=== PATIENT | male | born 1940 | race Caucasian/White ===

== ENCOUNTER 2024-01-20 15:22 | Inpatient (IN) | payer OTHER, SELFPAY ==
[2024-01-20] VITALS (13 sets, daily range): BP systolic 80–139; BP diastolic 51–75; BMI 25.9; BMI 25.7
--- NOTE | 2024-01-20 09:12 | ED.GENMED ---
History of Present Illness
General
Chief Complaint: Breathing Problem
Source: patient
Exam Limitations: none
Time Seen by Provider: 01/20/24 08:36
Nursing documentation reviewed up to this point in time: agreed with
Travel History
Have you had any contact with someone who has COVID-19?: No
Do you have any symptoms of coronavirus? Fever > 100 degrees, chills, cough, shortness of breath, sore throat, loss of taste or smell, muscle aches, or headache?: No
History of Present Illness
History of Present Illness:
83-year-old male history of asthma followed by pulmonary on some inhalers, presents with cough congestion possibly chills, worse at night, has had some ankle edema which is new for him no hemoptysis, pressure in his chest when he is coughing,
Past History
Past History
ED Past Medical History: Asthma, HTN, Hypercholesterolemia and Renal failure (Recent elevation of creatinine, most recently .28 October 2016.); Negative CAD
ED Past Surgical History: Other (Hernia repair); Negative Cardiac
Social History
Tobacco: Non-smoker
Alcohol: None
Drug: None
Personal:
Living: with family
Employment: Employed
Family History
Family History: Other (Noncontributory)
Review of Systems
Review of Systems
All Other Systems: Not applicable
Constitutional: Reports chills; Denies fever
Respiratory: Reports cough and trouble breathing
Cardiac: Reports chest pain
ABD/GI: Reports no symptoms
: Reports no symptoms
Musculoskeletal: Reports edema
Neurological: Reports no symptoms
Endocrine: Reports no symptoms
Hematologic/Lymphatic: Reports no symptoms
Phy Exam
Physical Exam
Physical Exam:
Physical Exam
General: Elderly male looks dyspneic nontoxic
Neck: No jaundice
Heart: Regular
Lungs: Diminished bilaterally with faint crackle
Abdomen: Not
Neuro: alert and oriented. no focal neurological deficits
Skin: no rash
Psychiatric: well kept. interactive and cooperative
Extremities: 1+ edema
Scores
Heart Failure Risk
Heart Failure Risk Score: Not Applicable
Course
Orders/Labs/Results
Orders:
Orders
01/20/24 08:09
Electrocardiogram (*1) Urgent
Reason for Study: Shortness of Breath
01/20/24 08:10
EKG- Treatment ONCE
01/20/24 08:36
Electrocardiogram (*1) Stat
Reason for Study: Other
Other Reason for Exam: chest pain
Cardiac Monitoring- Treatment ONCE
EKG- Treatment ONCE
CR Chest - 2 Views Urgent
Comment:
Reason For Exam: soob
01/20/24 09:10
Complete Blood Count/With Diff Urgent
NT-proBNP Urgent
TSH Urgent
Troponin I Urgent
01/20/24 09:12
Ipratropium/Albuterol Sulfate [Duoneb] 3 ml INH R NOW STA
01/20/24 09:37
CefTRIAXone [Rocephin] 1,000 mg IV NOW STA
01/20/24 09:40
Comprehensive Metabolic Panel Routine
Magnesium Routine
01/20/24 09:45
Blood Culture Q30M
[facility] Source: Blood/Venous
Specimen Description:
01/20/24 10:15
Blood Culture Q30M
[facility] Source: Blood/Venous
Specimen Description:
Abnormal Lab Results
01/20/24
09:10
WBC 14.7 H 10^3/uL
(4.8-10.8)
RBC 4.49 L 10^6/uL
(4.70-6.10)
Plt Count 423 H 10^3/uL
(130-400)
01/20/24 09:10
Vital Signs
Initial and Last Documented VS:
Initial Vital Signs
Temp Pulse Resp BP Pulse Ox
97.6 F 97 26 126/60 93
01/20/24 08:05 01/20/24 08:05 01/20/24 08:05 01/20/24 08:05 01/20/24 08:05
Last Documented Vital Signs
Temp Pulse Resp BP Pulse Ox
97.6 F 87 18 117/51 92
01/20/24 08:05 01/20/24 09:10 01/20/24 09:10 01/20/24 09:10 01/20/24 09:10
MDM/Problems Addressed
Differential Diagnosis Includes:
Bronchitis asthma heart failure pneumonia doubt PE
MDM/Problems Addressed:
Shortness of breath
Chronic conditions affecting care: Asthma
Acute Exacerbation and/or Progression of Chronic Illness: Asthma
*Radiology
Radiology exam reviewed: preliminary read by ED provider (Large pneumonia formal report pending)
*Pulse Oximetry
Patient hypoxic: no
*EKG
Interpreted by ED Provider?: Yes
Interpretation: abnormal
Comparison EKG: no comparison EKG present
Heart Rate: 78
Rate: normal
Rhythm: sinus
Ischemia: non-specific ST changes
*Sales Professional Bilingual Interpretation
Rate: normal
Interpretation: normal
Heart Rate: 78
Rhythm: sinus
*Critical Care Note
Total Time (30-74mins, 75-104mins- exclusive of procedures): Not Applicable
Update Note
Update Note:
Chest x-ray noted formal report pending check blood cultures
Patient is room her pulse ox 90 to 91%, placed on oxygen will require admission message sent to hospitalist patient and nursing updated
ED Attending Note
-
Portions of this chart may have been created with voice recognition software.� Occasional wrong word or��sound alike� substitutions may have occurred due to the inherent limitations of voice recognition software.
Discharge Plan
Departure
Patient Disposition: Admit
Date of Disposition: 01/20/24
Time of Disposition: 09:47
Admit to: Med/Surg
Presentation/result/management discussed w/ accepting MD/DO: Hospitalist
Patient with high blood pressure during this ER visit?: No
Condition: Fair
Covid-19: Not Applicable
Discharge Problem:
Acute hypoxic respiratory failure
Prescriptions:
No Action
losartan 50 mg Tablet
50 mg PO DAILY
latanoprost 0.005 % Drops
1 drp BOTH EYES HS
atorvastatin 20 mg Tablet
20 mg PO DAILY
Theragen Tablet
1 tab PO DAILY
brimonidine 0.2 % Drops
1 drp BOTH EYES BID
montelukast 10 mg Tablet
10 mg PO DAILY
azelastine 137 mcg (0.1 %) Aerosol,[place]
1 spray INTRANASAL BID
cholecalciferol (vitamin D3) 25 mcg (1,000 unit) Tablet
25 mcg PO DAILY
Referrals:
Giacomo Costello PA-C [Family Provider] -
Interventions
Interventions:
*Risk Screen - Suicide Last Done: 01/20/24 09:10
*General Assessment Last Done: 01/20/24 08:10
*Neglect/Abuse Screening Last Done: 01/20/24 09:10
ED- Fall Risk Assessment Last Done: 01/20/24 09:10
*ED COVID-19 Vaccine History Last Done: 01/20/24 09:10
ED- Cardiac Assessment Last Done: 01/20/24 09:10
ED- Pulmonary Assessment Last Done: 01/20/24 09:10
Discharge Date and Time
Print Language: HEBREW
[2024-01-20 09:21] LABS: % Basophils 0.8 % (0-2); % Eosinophils 0.1 % (0-6); % Immature Granulocytes 1.2 % (0-0.5); % Lymphocytes 6.3 % (20.5-51.1); % Monocytes 9.7 % (1.7-9.3); % Neutrophils 81.9 % (42.2-75.2); Absolute Basophils 0.1 10^3/uL (0-0.2); Absolute Immature Granulocytes 0.2 10^3/uL (0-0.05); Absolute Lymphocytes 0.9 10^3/uL (1.2-3.4); Absolute Monocytes 1.4 10^3/uL (0.1-0.6); Hematocrit 39.9 % (39.0-52.0); Hemoglobin 13.8 g/dL (13.0-18.0); Mean Corp Hgb Conc. 34.6 g/dL (33.0-37.0); Mean Corpuscular Hgb 30.7 pg (27.0-31.0); Mean Corpuscular Volume 88.9 fL (80.0-94.0); Mean Platelet Volume 8.6 fL (7.4-10.4); Nucleated Red Blood Cells % 0 % (-); Platelet Count 423 10^3/uL (130-400); Red Blood Cell Count 4.49 10^6/uL (4.70-6.10); Red Cell Dist. Width 13.7 % (11.5-14.5); White Blood Cell Count 14.7 10^3/uL (4.8-10.8)
--- NOTE | 2024-01-20 10:00 | HPS.HSE ---
Family Physician
-
Family Physician: Giacomo Costello PA-C
Chief Complaint
-
Shortness of Breath
History of Present Illness
83M cough variant asthma HTN HLD p/w 2 weeks progressive shortness of breath weakness associate intermittent subjective Fever chills night sweats. Reports productive cough yellow sputum. Denies hemoptysis, sick contacts, nausea, vomiting,
diarrhea, constipation. Reports loss of appetite, significant exercise intolerance due to weakness/sob, having difficulty ambulating short distances. Patient also reports new ankle edema. ED eval was notable for hypoxia requiring 4L to maintain
saturation 94%, reportedly 90-91% on room air. VSS otherwise stable afebrile. White count 14 low protein 5.9 and low albumin 2.2. CXR noted small to moderate left pleural w/ adjacent atelectasis/consolidation opacity posterior left midlung
suggestive PNA.
Medical History
Past Medical History
Past Medical History: Reports Other (as above)
Past Surgical History: Reports Other (Hernia Repair)
Social History
Tobacco: Non-smoker
Alcohol: None
Drug: None
Personal:
Living: With Family
Family History
Family History: Not pertinent (reviewed)
Allergies / Home Medications
Allergies reflects when Allergies were last updated in [facility].
Home Medications with original date entered in [facility]
Allergy/Medication List:
Allergies
Allergy/AdvReac Type Severity Reaction Status Date / Time
No Known Allergies Allergy Verified 01/20/24 08:05
Home Medications
atorvastatin 20 mg tablet 20 mg PO DAILY High Cholesterol 01/20/24
azelastine 137 mcg (0.1 %) nasal spray aerosol 1 spray intranasal BID Congestion 01/20/24
brimonidine 0.2 % eye drops 1 drp BOTH EYES BID Eye Condition 01/20/24
cholecalciferol (vitamin D3) 25 mcg (1,000 unit) tablet 25 mcg PO DAILY Supplement 01/20/24
latanoprost 0.005 % eye drops 1 drp BOTH EYES HS Eye Condition 01/20/24
losartan 50 mg tablet 50 mg PO DAILY Blood Pressure 01/20/24
montelukast 10 mg tablet 10 mg PO DAILY asthma 01/20/24
therapeutic multivitamin 1 tab PO DAILY Supplement 01/20/24
Review of Systems
-
A 12 point ROS was completed and negative except as noted: Yes
Constitutional: Reports Other (as below)
Physical Exam
Vital Signs
Vital Signs
Temp Pulse Resp BP Pulse Ox
97.6 F 87 18 117/51 92
01/20/24 08:05 01/20/24 09:10 01/20/24 09:10 01/20/24 09:10 01/20/24 09:10
Physical Exam
General: Other (as below)
Laboratory Results
-
01/20/24 09:10
Laboratory Results
Total Bilirubin Cancelled 01/20/24 09:10
AST Cancelled 01/20/24 09:10
ALT Cancelled 01/20/24 09:10
Alkaline Phosphatase Cancelled 01/20/24 09:10
Impression/Plan
-
ROS
General: reports fever chills night sweats
Neuro: Denies seizure shaking loss of consciousness dizziness vertigo
Psych: denies depression hallucinations confusion manic episodes
Endocrine: Denies polyuria polydipsia polyphagia heat intolerance
HEENT: Denies blindness visual disturbances epistaxis
Pulmonary: reports coughing productive yellow sputum sob
Cardiovascular: denies chest pain palpitations reports ankle edema
Hematology: denies signs symptoms of anemia easy bruising/bleeding
Gastrointestinal: denies nausea vomiting diarrhea constipation hematemesis hematochezia melena Reports loss of appetits
Genito-Urinary: denies retention incontinence dysuria
Musculoskeletal: denies joint pain weakness
Dermatology: denies rash laceration bruising
Physical Exam
General: No pallor, cyanosis, or jaundice.
HEENT: Throat clear. PERRLA Normocephalic atraumatic
NECK: Supple. No JVD Carotid Bruits
RESPIRATORY: Lungs clear to auscultation. No crackles wheezes stridor
CVS: S1, S2 normal. RRR. No murmur, rub or gallop.
ABDOMEN: Soft, non-tender. No distension. BS+/normal.
EXTREMITIES: No peripheral cyanosis or edema.
CORNICE MAKER: AOx3. No focal deficits.
IMPRESSION:
83M cough variant asthma HTN HLD p/w 2 weeks progressive shortness of breath weakness associate intermittent subjective Fever chills night sweats. Admitted for further evaluation PNA asthma exacerbation Acute hypoxic insufficiency/failure requiring
4L small to moderate left pleural effusion. Noted new onset ankle edema BNP however neg for HF, suspect d/t malnutrition with low protein and albumin noted, patient reports poor oral intake due to loss of appetite progressive over the past few
days/week.
PLAN:
#PNA
#Left Lung small to moderate Pleural Effusion
#Asthma Exacerbation
#Acute hypoxic insufficiency/failure requiring 4L
#Generalized weakness
Tele Admit
ceftriaxone azithromycin
trend wbc monitor Temp
follow blood culture results
sputum culture
Legionella Strep pna urinary antigens
COVID Flu neg
IR eval for thoracentesis
O2 supplementation prn
Steroids Bronchodilators
Fall Precautions
PT/OT
#HTN
cont home losartan with holding parameters
#Cont home statin
dvt ppx lovenox
gi ppx famotidine
meds reconciled and resumed as appropriate
Full Code as per pt
I spent a total of 80 minutes with the patient or on the floor. More than 50% of this time involved counseling and coordination of care.
[2024-01-20] MEDS: DUONEB 3 ML INH ×2 (10:09→19:43)
[2024-01-20] MEDS: DECADRON 10 MG IV (10:09)
[2024-01-20 10:14] LABS: NT-proBNP 525 pg/ml; Troponin I < 0.012 ng/ml
[2024-01-20] MEDS: ROCEPHIN 1000 MG IV (10:16)
[2024-01-20 10:33] LABS: TSH 3.98 uIU/ml (0.47-4.68)
[2024-01-20 10:37] LABS: ALT (SGPT) 26 U/L (0-50); AST (SGOT) 31 U/L (17-59); Albumin 2.2 g/dl (3.5-5.0); Alkaline Phosphatase 143 U/L (38-126); Blood Urea Nitrogen 38 mg/dl (9-20); Calcium 7.7 mg/dl (8.4-10.2); Carbon Dioxide 23 mmol/L (22-30); Chloride 104 mmol/L (98-107); Estimated Creatinine Clearance 46 ml/min; Glucose 114 mg/dl (70-99); Magnesium 2.3 mg/dl (1.6-2.3); Potassium 3.3 mmol/L (3.5-5.1); Sodium 136 mmol/L (135-145); Total Bilirubin 1.1 mg/dl (0.2-1.3); Total Protein 5.9 g/dl (6.3-8.2); eGFR > 60.00
[2024-01-20] MEDS: NSS 1000 IV (11:48)
[2024-01-20] MEDS: KCL 40 MEQ PO (11:55)
--- NOTE | 2024-01-20 13:31 | EDRN ---
Pt administered a boxed lunch and cup of orange juice pt is feeling very much better at this time.
--- NOTE | 2024-01-20 14:03 | EDRN ---
Dr. Pearson in to see pt at this time.
[2024-01-20 14:41] LABS: COVID-19 Antigen Negative (Negative)
--- NOTE | 2024-01-20 16:12 | PTCARENOTE ---
Bilateral lung US completed by Dr. Constantino. Pleural fluid not amenable for thoracentesis. Procedure canceled. Report given to 3W nurse. Patient transport to take to room 336-1
[2024-01-20] MEDS: DUONEB INH (17:07)
[2024-01-20] MEDS: ZITHROMAX INFUSION 250 IV (17:33)
[2024-01-20] MEDS: DECADRON 4 MG IV (17:34)
[2024-01-20] MEDS: LOVENOX 40 MG SC (17:34)
[2024-01-20] MEDS: ALPHAGAN 0.2% EYE DROPS 1 DROP BOTH EYES (20:25)
[2024-01-20] MEDS: XALATAN OPHTHALMIC SOLUTION 1 DROP BOTH EYES (22:08)
[2024-01-20] MEDS: PEPCID 20 MG PO (22:08)
[2024-01-21] VITALS (7 sets, daily range): BP systolic 113–140; BP diastolic 69–82; PULSE 95; O2SAT 96
[2024-01-21] MEDS: TYLENOL 650 MG PO ×4 (00:15→21:38)
[2024-01-21] MEDS: DECADRON 4 MG IV ×3 (01:27→21:36)
--- NOTE | 2024-01-21 06:38 | W.PN.HOSP.TC ---
Today's Communication/Plan
-
steroid taper
bronchodilators
antitussives
wean O2 supplementation as tolerated
cont abx
Pulm eval
Assessment / Plan
Assessment / Plan
Physical Exam
General: No pallor, cyanosis, or jaundice.
HEENT: Throat clear. PERRLA Normocephalic atraumatic
NECK: Supple. No JVD Carotid Bruits
RESPIRATORY: Lungs clear to auscultation. No crackles wheezes stridor
CVS: S1, S2 normal. RRR. No murmur, rub or gallop.
ABDOMEN: Soft, non-tender. No distension. BS+/normal.
EXTREMITIES: No peripheral cyanosis or edema.
DEBT COLLECTION SPECIALIST: AOx3. No focal deficits.
IMPRESSION:
83M cough variant asthma HTN HLD p/w 2 weeks progressive shortness of breath weakness associate intermittent subjective Fever chills night sweats. Admitted for further evaluation PNA asthma exacerbation Acute hypoxic insufficiency/failure requiring
4L small to moderate left pleural effusion. Noted new onset ankle edema BNP however neg for HF, suspect d/t malnutrition with low protein and albumin noted, patient reports poor oral intake due to loss of appetite progressive over the past few
days/week.
PLAN:
#PNA
#Left Lung small to moderate Pleural Effusion
#Asthma Exacerbation
#Acute hypoxic insufficiency/failure requiring 4L
#Generalized weakness
Tele Admit
ceftriaxone azithromycin
trend wbc monitor Temp
follow blood sputum culture results
Legionella Strep pna urinary antigens
COVID Flu neg
IR attempted thoracentesis however procedure aborted as US noted complex hypoechoic lesion recommended CT for further evaluation.
CT appreciated noted loculated with associate consolidation/atelectasis, possible small mass not excluded
Pulm eval requested
wean oxygen supplementation as tolerated
antitussives Steroid taper Bronchodilators
Fall Precautions
PT/OT appreciated home health vs no needs
#HTN
cont home losartan with holding parameters
#Cont home statin
dvt ppx lovenox
gi ppx famotidine
Full Code
I spent a total of 58 minutes with the patient or on the floor. More than 50% of this time involved counseling and coordination of care.
Anticipated Discharge: 24 - 48 hours
Subjective/Interval History
-
Date of Service: January 21, 2024
reports feeling better. Remains dependant on nasal cannula supplementation. reports significant coughing.
Objective Data
-
Labs:
Laboratory Results
01/21/24
06:15
Sodium Pending
Potassium Pending
Chloride Pending
Carbon Dioxide Pending
BUN Pending
Creatinine Pending
Glucose Pending
Calcium Pending
Vital Signs:
Vital Signs
Temp Pulse Resp BP Pulse Ox
97.4 F 71 16 124/74 95
01/21/24 03:10 01/21/24 03:10 01/21/24 03:10 01/21/24 03:10 01/21/24 03:10
I&O
01/19/24 01/20/24 01/21/24
06:59 06:59 06:59
Intake Total 480 / 480
Balance 480 / 480
[2024-01-21 06:58] LABS: Blood Urea Nitrogen 39 mg/dl (9-20); Calcium 8.2 mg/dl (8.4-10.2); Carbon Dioxide 21 mmol/L (22-30); Chloride 106 mmol/L (98-107); Estimated Creatinine Clearance 52 ml/min; Glucose 193 mg/dl (70-99); Magnesium 2.5 mg/dl (1.6-2.3); Potassium 3.9 mmol/L (3.5-5.1); Sodium 138 mmol/L (135-145); eGFR > 60.00
[2024-01-21] MEDS: DUONEB 3 ML INH ×4 (07:31→18:37)
[2024-01-21] MEDS: SINGULAIR 10 MG PO (08:49)
[2024-01-21] MEDS: ZITHROMAX 250 MG PO (08:49)
[2024-01-21] MEDS: COZAAR 50 MG PO (08:49)
[2024-01-21] MEDS: THERAGRAN 1 TABLET PO (08:49)
[2024-01-21] MEDS: VITAMIN D3 (cholecalciferol) 25 MCG PO (08:49)
[2024-01-21] MEDS: LIPITOR 20 MG PO (08:49)
[2024-01-21] MEDS: ALPHAGAN 0.2% EYE DROPS 1 DROP BOTH EYES ×2 (08:50→21:35)
[2024-01-21] MEDS: STERILE WATER FOR INJECTION 10 ML IV (10:12)
[2024-01-21] MEDS: ROCEPHIN 1000 MG IV (10:17)
--- NOTE | 2024-01-21 11:22 | CM ---
CM reviewed medical records. CM met with patient in room. Patient confirmed demographics. Patient lives independently with . Patient denies history of VN or SNF. No DME in the home. Patient is active with his PCP and Pulmonary physician.
Patient uses [facility] in [place].
PLAN: Home vs Home with oxygen
[2024-01-21] MEDS: LOVENOX 40 MG SC (17:37)
--- NOTE | 2024-01-21 18:06 | CON.PUL ---
Addendum entered and electronically signed by Chad Harper MD 01/21/24 18:38:
Was placed on IV steroids and nebulizers.
Continue for now
Prefer antitussives
Analgesia short course of steroids if necessary. No significant bronchospastic to my exam.
Original Note:
Consultation
Consultation Request
Date/Time Consultation Requested: 01/21/2024
Date/Time Consultation Performed: 01/21/2024
Requesting Provider: Dr. Pearson
Performing Provider: DR. Chad Franco
Reason for Consultation: Abnormal CT chest
Medical History
-
History of Present Illness:
83-year-old who is known to me from the outpatient setting for interstitial lung disease, possible hypersensitivity pneumonitis, chronic cough, who came to the hospital complaining of 2 weeks progressive shortness of breath associated with fevers
and night sweats. Cough was productive of yellow sputum. Denied any hemoptysis.
Reports loss of appetite, progressive shortness of breath. Also reports new ankle edema.
Of note, patient reports falling off a ladder cleaning gutters. He sustained significant trauma to the left side.
Complains of pain to coughing
On admission patient had leukocytosis. Chest x-ray showed moderate loculated left pleural effusion with consolidation.
CT chest showed moderate lobulated/loculated pleural effusion severe in size with compressive atelectasis. Small left lung mass cannot be excluded. Mild mediastinal lymphadenopathy.
Changes new compared to CAT scan from 2019.
Past Medical History
Past Medical History: Other (See assessment and plan section)
Social History
Tobacco: Non-smoker
Alcohol: None
Personal:
Living: With Family
Family History
Family History: Reviewed & Not Pertinent
Allergies / Home Medications
Allergies
Allergy/AdvReac Type Severity Reaction Status Date / Time
No Known Allergies Allergy Verified 01/20/24 08:05
Home Medications
�Medication �Instructions �Recorded �Confirmed �Last Taken �Type
atorvastatin 20 mg tablet 20 mg PO DAILY High Cholesterol 01/20/24 01/20/24 01/20/24 History
azelastine 137 mcg (0.1 %) nasal 1 spray intranasal BID Congestion 01/20/24 01/20/24 01/20/24 History
spray aerosol
brimonidine 0.2 % eye drops 1 drp BOTH EYES BID Eye Condition 01/20/24 01/20/24 01/19/24 History
cholecalciferol (vitamin D3) 25 25 mcg PO DAILY Supplement 01/20/24 01/20/24 01/19/24 History
mcg (1,000 unit) tablet
latanoprost 0.005 % eye drops 1 drp BOTH EYES HS Eye Condition 01/20/24 01/20/24 01/19/24 History
losartan 50 mg tablet 50 mg PO DAILY Blood Pressure 01/20/24 01/20/24 01/20/24 History
montelukast 10 mg tablet 10 mg PO DAILY asthma 01/20/24 01/20/24 01/19/24 History
therapeutic multivitamin 1 tab PO DAILY Supplement 01/20/24 01/20/24 01/19/24 History
Review of Systems
-
History Source: Patient
All other systems: Negative unless noted
Vitals / Labs / Diagnostic Testing
Vital Signs
Temp Pulse Resp BP Pulse Ox
97.3 F 108 17 140/69 96
01/21/24 15:28 01/21/24 15:28 01/21/24 15:28 01/21/24 15:28 01/21/24 15:28
Lab Data
01/20/24 09:10
01/21/24 06:15
Microbiology
01/20/24 22:23 Sputum Gram Stain - Preliminary
01/20/24 10:06 Blood/Venous Blood Culture - Preliminary
No Growth in 24 hours- Final report to follow
01/20/24 09:57 Blood/Venous Blood Culture - Preliminary
No Growth in 24 hours- Final report to follow
01/20/24 14:20 Nasal Swab Influenza Types A & B ([facility]) - Final
Negative for Influenza A & B, NAAT
Negative results must be combined with clinical observations
and patient history.
Nucleic Acid Amplification test (NAAT)performed on the
[employer] platform.
Diagnostic Testing:
Physical Exam
-
HEENT: Normocephalic
Cardiovascular: S1/S2
Respiratory: Clear, Non-Labored Respirations and Other (Decreased breath sounds in the left)
GI: Soft and Non Distended
Neurology: Awake and Alert
Skin: Warm
General: Comfortable
Assessment
-
Abnormal CT chest suspect pneumonia with complicated parapneumonic effusion-cannot rule out empyema.
Could be also related to trauma-fell off a ladder 2 weeks ago sustaining trauma to the left thorax-pulmonary contusion with associated bloody effusion.
Hypoxemic respiratory insufficiency currently on 4 L nasal cannula
Conditions present prior admission:
Hypertension
Interstitial lung disease/Mild pulmonary fibrosis-possiblehypersensitivity pneumonitis
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
Follows with Dr. Franco-PFTs have been stable over time.
Negative rheumatologic workup.
Chronic cough secondary to above
Chronic rhinitis
Non-smoker.
-
Assessment and plan:
CT scan findings new compared to 2019.
I do not appreciate any endobronchial lesion. Pulmonary mass cannot be ruled out.
Loculated pleural effusion/compressive atelectasis/infiltrate/leukocytosis and fevers at home.
Could be post trauma: Sustained a fall 2 weeks ago from a ladder.
Rule out pneumonia with complicated parapneumonic effusion. Cannot rule out empyema.
Agree with antibiotics for community-acquired infection
Interventional radiology: Likely will need a chest tube. Will need to send for cultures and cytology.
Discussed patient if chest tubes are not effective at clearing the thick fluid, surgical consultation may be necessary.
May need thrombolytic/dornase alpha
-
Sputum culture if able
-
Follow fever curve and leukocytosis-
Incentive spirometry
-
History of mild pulmonary fibrosis stable over time-possible hypersensitivity pneumonitis. No evidence of honeycombing on CAT scan.
Patient has exposures to a barn at home.
Pulmonary function testing have been stable.
Follows up with Dr. Franco.
-
Will follow
[2024-01-21] MEDS: ROBITUSSIN 200 MG PO (21:38)
[2024-01-21] MEDS: PEPCID 20 MG PO (21:38)
[2024-01-21] MEDS: XALATAN OPHTHALMIC SOLUTION 1 DROP BOTH EYES (21:39)
[2024-01-22] VITALS (21 sets, daily range): BP systolic 78–150; BP diastolic 50–81; BMI 23.3
--- NOTE | 2024-01-22 06:41 | W.PN.HOSP.TC ---
Today's Communication/Plan
-
Chest tube placement today with IR, transfer to IMU post-procedure
Follow up fluid studies cultures
cont bronchodilators antitussives
Steroids completed, last dose 01/20 pm, monitor off, no wheezing noted
Assessment / Plan
Assessment / Plan
Physical Exam
General: No pallor, cyanosis, or jaundice.
HEENT: Throat clear. PERRLA Normocephalic atraumatic
NECK: Supple. No JVD Carotid Bruits
RESPIRATORY: Lungs clear to auscultation. No crackles wheezes stridor
CVS: S1, S2 normal. RRR. No murmur, rub or gallop.
ABDOMEN: Soft, non-tender. No distension. BS+/normal.
EXTREMITIES: No peripheral cyanosis or edema.
QA TEST ANALYST: AOx3. No focal deficits.
IMPRESSION:
83M cough variant asthma HTN HLD p/w 2 weeks progressive shortness of breath weakness associate intermittent subjective Fever chills night sweats. Admitted for further evaluation PNA asthma exacerbation Acute hypoxic insufficiency/failure requiring
4L small to moderate left pleural effusion. Noted new onset ankle edema BNP however neg for HF, suspect d/t malnutrition with low protein and albumin noted, patient reports poor oral intake due to loss of appetite progressive over the past few
days/week.
PLAN:
#PNA
#Left Lung Empyema Loculated effusion
#Asthma Exacerbation
#Acute hypoxic insufficiency/failure requiring NC Oxygen Supplementation
#Generalized weakness
Tele Admit
ceftriaxone azithromycin
trend wbc monitor Temp
follow blood sputum culture results
Legionella Strep pna urinary antigens
COVID Flu neg
IR attempted thoracentesis however procedure aborted as US noted complex hypoechoic lesion recommended CT for further evaluation.
CT noted loculated with associate consolidation/atelectasis, possible small mass not excluded
Pulm eval appreciated for chest tube placement with IR today 01/22/24 transfer to IMU following procedure
wean oxygen supplementation as tolerated
antitussives Bronchodilators
Decadron steroids tapered off last dose 01/20 PM, no wheezing noted
Fall Precautions
PT/OT appreciated home health vs no needs
#HTN
cont home losartan with holding parameters
#Cont home statin
dvt ppx lovenox
gi ppx famotidine
Full Code
I spent a total of 58 minutes with the patient or on the floor. More than 50% of this time involved counseling and coordination of care.
Anticipated Discharge: > 48 hours
Subjective/Interval History
-
Date of Service: January 22, 2024
Seen and examined at bedside anxious regarding plans for chest tube placement today. Initially refusing, accepted tube placement following discussion with Pulm. Otherwise no acute distress appears comfortable remains dependent on nasal cannula.
Objective Data
-
Labs:
Laboratory Results
01/22/24
06:00
WBC Pending
Hgb Pending
Hct Pending
Plt Count Pending
Sodium Pending
Potassium Pending
Chloride Pending
Carbon Dioxide Pending
BUN Pending
Creatinine Pending
Glucose Pending
Calcium Pending
Vital Signs:
Vital Signs
Temp Pulse Resp BP Pulse Ox
97.8 F 81 20 150/81 94
01/22/24 04:06 01/22/24 04:06 01/22/24 04:06 01/22/24 04:06 01/22/24 04:06
I&O
01/20/24 01/21/24 01/22/24
06:59 06:59 06:59
Intake Total 480 / 480 960 / 960
Balance 480 / 480 960 / 960
[2024-01-22 07:26] LABS: Hematocrit 41.9 % (39.0-52.0); Mean Corp Hgb Conc. 33.4 g/dL (33.0-37.0); Mean Corpuscular Hgb 30.4 pg (27.0-31.0); Mean Corpuscular Volume 91.1 fL (80.0-94.0); Mean Platelet Volume 8.6 fL (7.4-10.4); Platelet Count 506 10^3/uL (130-400); Red Cell Dist. Width 13.7 % (11.5-14.5)
[2024-01-22] MEDS: DUONEB 3 ML INH ×3 (07:30→19:03)
[2024-01-22 08:01] LABS: Blood Urea Nitrogen 30 mg/dl (9-20); Calcium 8.5 mg/dl (8.4-10.2); Carbon Dioxide 24 mmol/L (22-30); Chloride 107 mmol/L (98-107); Estimated Creatinine Clearance 52 ml/min; Glucose 153 mg/dl (70-99); Magnesium 2.3 mg/dl (1.6-2.3); Potassium 4.1 mmol/L (3.5-5.1); Sodium 139 mmol/L (135-145); eGFR > 60.00
[2024-01-22] MEDS: COZAAR 50 MG PO (09:12)
[2024-01-22] MEDS: THERAGRAN 1 TABLET PO (09:12)
[2024-01-22] MEDS: LIPITOR 20 MG PO (09:12)
[2024-01-22] MEDS: ROCEPHIN 1000 MG IV (09:13)
[2024-01-22] MEDS: ALPHAGAN 0.2% EYE DROPS 1 DROP BOTH EYES ×2 (09:13→20:51)
[2024-01-22] MEDS: SINGULAIR 10 MG PO (09:13)
[2024-01-22] MEDS: ZITHROMAX 250 MG PO (09:13)
[2024-01-22] MEDS: VITAMIN D3 (cholecalciferol) 25 MCG PO (09:13)
[2024-01-22] MEDS: STERILE WATER FOR INJECTION 10 ML IV (09:14)
--- NOTE | 2024-01-22 11:08 | W.PN.PUL3 ---
Today's Communication / Plan
-
Chest tube today
May need thrombolytics/dornase alpha
Continue antibiotics
Culture/cytology
Assessment
-
Abnormal CT chest suspect pneumonia with complicated parapneumonic effusion-cannot rule out empyema.
Could be also related to trauma-fell off a ladder 2 weeks ago sustaining trauma to the left thorax-pulmonary contusion with associated bloody effusion.
Hypoxemic respiratory insufficiency currently on 4 L nasal cannula
Conditions present prior admission:
Hypertension
Interstitial lung disease/Mild pulmonary fibrosis-possiblehypersensitivity pneumonitis
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 with Dr[address] Franco-PFTs have been stable over time.
Negative rheumatologic workup.
Chronic cough secondary to above
Chronic rhinitis
Non-smoker.
-
Assessment and plan:
CT scan findings new compared to 2019.
I do not appreciate any endobronchial lesion. Pulmonary mass cannot be ruled out.
Loculated pleural effusion/compressive atelectasis/infiltrate/leukocytosis and fevers at home.
Could be post trauma: Sustained a fall 2months ago from a ladder.
Rule out pneumonia with complicated parapneumonic effusion. Cannot rule out empyema.
Continue antibiotics for community-acquired infection
Interventional radiology: Chest tube placement today. Will need to send for cultures and cytology.
Extensive discussion with patient 01/22/2024 regarding need for the procedure. I recommended him not to leave AGAINST MEDICAL ADVICE. He agreed to stay for the procedure.
Discussed patient if chest tubes are not effective at clearing the thick fluid, surgical consultation may be necessary.
May need thrombolytic/dornase alpha .
-
Sputum culture if able, pending
-
Steroids were discontinued.
Follow fever curve and leukocytosis-
Incentive spirometry
-
History of mild pulmonary fibrosis stable over time-possible hypersensitivity pneumonitis. No evidence of honeycombing on CAT scan.
Patient has exposures to a barn at home.
Pulmonary function testing have been stable.
Follows up with Dr. Franco.
-
Will follow
Subjective Data
-
Date of Service:
Date of Service: January 22, 2024
Chief Complaint: Pulmonary Follow Up (Pleural effusion)
Subjective:
Patient asking to leave AMA, little adamant about not getting the procedure.
Denies shortness of breath at rest
Denies significant phlegm production or hemoptysis.
Review of Systems
General: Fever (n)
Cardiopulmonary: Dyspnea, Dyspnea on Exertion and Cough
GI: Nausea (n) and Vomiting
Objective Data
Data Reviewed
Vital Signs / I&O / Oxygen:
Vital Signs
Temp Pulse Resp BP Pulse Ox
97.8 F 97 16 142/78 95
01/22/24 07:00 01/22/24 07:00 01/22/24 07:00 01/22/24 07:00 01/22/24 07:00
Intake and Output
01/21/24 01/22/24 01/23/24
06:59 06:59 06:59
Intake Total 480 / 480 960 / 960
Balance 480 / 480 960 / 960
SaO2 95
Nasal Cannula flow liters per 1
minute
Labs/Micro/Reports
Lab Data
01/22/24 06:46
01/22/24 06:46
Microbiology
01/20/24 10:06 Blood/Venous Blood Culture - Preliminary
No Growth in 48 hours- Final report to follow
01/20/24 09:57 Blood/Venous Blood Culture - Preliminary
No Growth in 48 hours- Final report to follow
01/20/24 22:23 Sputum Gram Stain - Preliminary
01/20/24 14:20 Nasal Swab Influenza Types A & B (HESHAM) - Final
Negative for Influenza A & B, NAAT
Negative results must be combined with clinical observations
and patient history.
Nucleic Acid Amplification test (NAAT)performed on the
[employer] platform.
[2024-01-22] MEDS: DUONEB INH (11:17)
--- NOTE | 2024-01-22 12:25 | W.PN.UPDATE ---
Addendum entered and electronically signed by Teddy Constantino MD 01/22/24 12:40:
- Will hold off pleural lysis for now. Tube has already put out 400 mL and patient symptomatic/coughing. Will re-evaluate in the morning.
Original Note:
Update Note
Progress Note Update
- 12F L chest tube placed into base of left hemithorax
- Drainage of moore purulent fluid consistent with empyema
- Will go ahead and administer tPA/dornase for pleural lysis given extensive loculation on CT
- Will likely need another chest tube to address loculated fluid within the apex
[2024-01-22 13:36] LABS: Body Fluid Amylase < 30 U/L; Body Fluid Glucose 103 mg/dl; Body Fluid Protein 3.3 g/dl; Body Fluid Triglycerides 40 mg/dl
[2024-01-22 13:52] LABS: Body Fluid Mononuclear 64.9 %; Body Fluid Polymorphonuclear 35.1 %; Body Fluid WBC 575500 /CUMM
[2024-01-22 13:53] LABS: Body Fluid Second Tech EM
--- NOTE | 2024-01-22 14:16 | PTCARENOTE ---
Received from [facility], AAO, IMU monitors in place. Left chest tube to -20cm wall suction - oasis marked at 800ml. moore milky drainage noted. Weaned o2 down to 1.5L still maintaining sao2 94%-98% will wean as tolerates. Denies pain. Mildly anxious-
redirected. Water provided and encouraged. Call marin at bedside and bed alarm engaged until fully awake.
[2024-01-22 14:47] LABS: Body Fluid LDH > 10000 U/L
[2024-01-22] MEDS: LOVENOX 40 MG SC (17:48)
--- NOTE | 2024-01-22 18:04 | PTCARENOTE ---
Intermittent sleeping, slightly confused on arousal but reorients. Remains on 1.5 L NC, SR 90 BPs 110-120s/50-70s. Ambulated to bathroom- voided. Now up eating dinner, discomfort at CT site but no med intervention needed.
[2024-01-22] MEDS: PEPCID 20 MG PO (20:39)
[2024-01-22] MEDS: XALATAN OPHTHALMIC SOLUTION 1 DROP BOTH EYES (20:40)
[2024-01-22] MEDS: ROBITUSSIN DM 5 ML PO (20:51)
[2024-01-22] MEDS: TYLENOL 650 MG PO (20:51)
[2024-01-22] MEDS: ANUSOL HC 25 MG RECTAL (20:54)
[2024-01-22] MEDS: MELATONIN 5 MG PO (21:50)
[2024-01-23] VITALS (14 sets, daily range): BP systolic 104–141; BP diastolic 47–77; PULSE 109; O2SAT 99
[2024-01-23 06:23] LABS: Hematocrit 40.7 % (39.0-52.0); Hemoglobin 13.4 g/dL (13.0-18.0); Mean Corp Hgb Conc. 32.9 g/dL (33.0-37.0); Mean Corpuscular Hgb 30.3 pg (27.0-31.0); Mean Corpuscular Volume 92.1 fL (80.0-94.0); Mean Platelet Volume 8.9 fL (7.4-10.4); Platelet Count 431 10^3/uL (130-400); Red Blood Cell Count 4.42 10^6/uL (4.70-6.10); Red Cell Dist. Width 13.8 % (11.5-14.5); White Blood Cell Count 14.4 10^3/uL (4.8-10.8)
--- NOTE | 2024-01-23 06:39 | PTCARENOTE ---
Patient on 2-3L NC. Tylenol for pain. Requested sleep aid; melatonin administered per NOV. Voiding in urinal with spillage. Buttock red; barrier cream applied. Encouraged repositioning in bed. Chest tube with 160mL moore/yellow thick output. NSR on
tele. Call marin within reach. Calls appropriately.
[2024-01-23 06:51] LABS: Blood Urea Nitrogen 33 mg/dl (9-20); Carbon Dioxide 26 mmol/L (22-30); Chloride 107 mmol/L (98-107); Estimated Creatinine Clearance 57 ml/min; Glucose 107 mg/dl (70-99); Magnesium 2.1 mg/dl (1.6-2.3); Potassium 5.2 mmol/L (3.5-5.1); Sodium 138 mmol/L (135-145); eGFR > 60.00
[2024-01-23] MEDS: DUONEB 3 ML INH ×4 (07:24→19:46)
[2024-01-23] MEDS: THERAGRAN 1 TABLET PO (08:34)
[2024-01-23] MEDS: COZAAR 50 MG PO (08:34)
[2024-01-23] MEDS: ZITHROMAX 250 MG PO (08:34)
[2024-01-23] MEDS: ANUSOL HC RECTAL ×3 (08:34→21:05)
[2024-01-23] MEDS: ALPHAGAN 0.2% EYE DROPS 1 DROP BOTH EYES ×2 (08:34→21:05)
[2024-01-23] MEDS: VITAMIN D3 (cholecalciferol) 25 MCG PO (08:36)
[2024-01-23] MEDS: SINGULAIR 10 MG PO (08:36)
[2024-01-23] MEDS: LIPITOR 20 MG PO (08:36)
[2024-01-23] MEDS: TYLENOL 650 MG PO ×3 (08:36→22:09)
--- NOTE | 2024-01-23 09:07 | PTCARENOTE ---
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 Patient resting comfortably in bed. AAO, VSS. No events noted over night. Some complaints of discomfort in chest related to chest tube, see MAR. Chest tube in place on left side, set to wall suction -[id number],
with moore output. Currently on 2L N/C, will attempt to wean. Call marin in reach.
--- NOTE | 2024-01-23 09:23 | W.PN.HOSP.TC ---
Today's Communication/Plan
-
Continue IV antibiotics but more broad-spectrum. Continue IR drainage.
Assessment / Plan
Assessment / Plan
Physical Exam
General: Acutely ill. No pallor, cyanosis, or jaundice.
HEENT: Throat clear. PERRLA Normocephalic atraumatic
NECK: Supple. No JVD Carotid Bruits
RESPIRATORY: Lungs decreased breath sounds bilateral more pronounced on the left. No crackles wheezes stridor
CVS: S1, S2 normal. RRR. No murmur, rub or gallop.
ABDOMEN: Soft, non-tender. No distension. BS+/normal.
EXTREMITIES: No peripheral cyanosis or edema.
EMPLOYEE RELATIONS ADVISOR: AOx3. No focal deficits.
A/P:
IMPRESSION:
83M cough variant asthma HTN HLD p/w 2 weeks progressive shortness of breath weakness associate intermittent subjective Fever chills night sweats. Admitted for further evaluation PNA asthma exacerbation Acute hypoxic insufficiency/failure requiring
4L small to moderate left pleural effusion. Noted new onset ankle edema BNP however neg for HF, suspect d/t malnutrition with low protein and albumin noted, patient reports poor oral intake due to loss of appetite progressive over the past few
days/week.
PLAN:
#PNA
#Left Lung Empyema Loculated effusion
#Asthma Exacerbation
#Acute hypoxic insufficiency/failure requiring NC Oxygen Supplementation
#Generalized weakness
Tele Admit
ceftriaxone azithromycin--> change to IV Zosyn and vancomycin
If not effective drainage, may need CT surgery eval
Sputum culture growing gram-negative
Check MRSA swab as well
trend wbc monitor Temp
follow blood sputum culture results
Legionella Strep pna urinary antigens
COVID Flu neg
IR attempted thoracentesis however procedure aborted as US noted complex hypoechoic lesion recommended CT for further evaluation.
CT noted loculated with associate consolidation/atelectasis, possible small mass not excluded
Pulm eval appreciated for chest tube placement with IR today 01/22/24 transfer to IMU following procedure
wean oxygen supplementation as tolerated
antitussives Bronchodilators
Decadron steroids tapered off last dose 01/20 PM, no wheezing noted
Fall Precautions
PT/OT appreciated home health vs no needs
#HTN
cont home losartan with holding parameters
#Cont home statin
dvt ppx lovenox
gi ppx famotidine
Full Code
I spent a total of 58 minutes with the patient or on the floor. More than 50% of this time involved counseling and coordination of care.
Anticipated Discharge: > 48 hours
Subjective/Interval History
-
Date of Service: January 23, 2024
Patient still with cough and shortness of breath. Generalized weakness present. Patient with chest discomfort at tube site.
Objective Data
-
Labs:
Laboratory Results
01/23/24
05:53
WBC 14.4 H
Hgb 13.4
Hct 40.7
Plt Count 431 H
Sodium 138
Potassium 5.2 H D
Chloride 107
Carbon Dioxide 26
BUN 33 H
Creatinine 0.8
Glucose 107 H
Calcium 8.0 L
Vital Signs:
Vital Signs
Temp Pulse Resp BP Pulse Ox
98.1 F 98 21 140/73 92
01/23/24 07:35 01/23/24 08:34 01/23/24 07:45 01/23/24 08:34 01/23/24 07:45
I&O
01/22/24 01/23/24 01/24/24
06:59 06:59 06:59
Intake Total 960 / 960 520 / 520 240 / 240
Output Total 1210 / 1210 100 / 100
Balance 960 / 960 -690 / -690 140 / 140
[2024-01-23] MEDS: ZOSYN 50 IV ×3 (10:51→21:06)
--- NOTE | 2024-01-23 10:54 | W.PN.PUL3 ---
Today's Communication / Plan
-
Monitor chest tube output in 12 hour intervals
May need thrombolytics/dornase alpha if drainage slows but empyema remains
Once drainage is <150cc/day and L-lung appears well re-expanded on CXR, we will obtain CT Chest at that point
Continue antibiotics - only danitan indicated a this point; mrsa swab negative, would DC iv vanco
Follow up pleural fluid culture/cytology
Assessment
-
Abnormal CT chest with left-sided pneumonia (mainly in LLL) with multi-loculated effusion due to empyema s/p small-bore chest tube (IR placed-01/22/24)
Hypoxemic respiratory insufficiency on supplemental O2
Left-sided pneumonia due to Pseudomonas aeruginosa (riley-sensitive)
Conditions present prior admission:
Hypertension
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 with Dr[address] Franco-PFTs have been stable over time.
Negative rheumatologic workup.
Chronic cough secondary to above
Chronic rhinitis
Non-smoker.
-
Assessment and plan:
CT scan findings new compared to 2019.
I do not appreciate any endobronchial lesion. Pulmonary mass cannot be ruled out.
Loculated pleural effusion/compressive atelectasis/infiltrate/leukocytosis and fevers at home.
Initially was considering post trauma as pt sustained a fall 2months ago from a ladder --> however based on pleural fluid appearance and characteristics, this is an empyema
Continue antibiotics for community-acquired infection
Interventional radiology: Chest tube placed on 01/21 --> c/t monitor drainage; follow up cultures and cytology.
Dr. Franco had an extensive discussion with patient 01/22/2024 regarding need for the procedure. HE` recommended him not to leave AGAINST MEDICAL ADVICE. He agreed to stay for the procedure.
Discussed patient if chest tubes are not effective at clearing the thick fluid, surgical consultation may be necessary.
May need thrombolytic/dornase alpha depending on lung re-expansion and chest tube output
-
Sputum culture grew pansensitive Pseudomonas aeruginosa
Continue Zosyn
-
Steroids were discontinued.
Follow fever curve and leukocytosis-
Incentive spirometry
MRSA screen negative and chest tube draining well - no need for IV vanco
-
History of mild pulmonary fibrosis stable over time-possible hypersensitivity pneumonitis. No evidence of honeycombing on CAT scan.
Patient has exposures to a barn at home.
Pulmonary function testing have been stable.
Follows up with Dr. Franco.
-
Will follow
Patient seen and evaluated on 01/23/2024
Subjective Data
-
Date of Service:
Date of Service: January 23, 2024
Chief Complaint: Pulmonary Follow Up (Pleural effusion)
Subjective:
Patient seen and evaluated today at bedside. Left-sided chest tube drained 1060 mL over the last 24 hours. He is sitting in chair in NAD. HR 114, and saturating 100% on 2L/min. He is not on O2 at home. He denies chest pain, abd pain, N/V/f/c.
Review of Systems
General: Other (negative unless mentioned above)
Objective Data
Data Reviewed
Vital Signs / I&O / Oxygen:
Vital Signs
Temp Pulse Resp BP Pulse Ox
98.1 F 98 21 140/73 92
01/23/24 07:35 01/23/24 08:34 01/23/24 07:45 01/23/24 08:34 01/23/24 07:45
Intake and Output
01/22/24 01/23/24 01/24/24
06:59 06:59 06:59
Intake Total 960 / 960 520 / 520 240 / 240
Output Total 1210 / 1210 100 / 100
Balance 960 / 960 -690 / -690 140 / 140
SaO2 92
Nasal Cannula flow liters per 2
minute
Physical Exam
General: Respiratory Distress (negative), Comfortable and Chills (negative)
HEENT: Normocephalic and Anicteric
Cardiovascular: S1-S2, Peripheral Edema (negative) and Other (tachycardic)
Respiratory: Wheeze (negative), Crackles (negative), Rhonchi (negative), Accessory Resp Muscle Use (negative), Chest Tube (left-sided chest tube draining purulent fluid) and Other (Inspiratory squeaks heard in LLL)
GI: Soft, Non Distended and Non Tender
Neurology: Awake and Alert
Skin: Warm and Dry
Labs/Micro/Reports
Lab Data
01/23/24 05:53
01/23/24 05:53
Microbiology
01/20/24 10:06 Blood/Venous Blood Culture - Preliminary
No Growth in 72 hours- Final report to follow
01/20/24 09:57 Blood/Venous Blood Culture - Preliminary
No Growth in 72 hours- Final report to follow
01/22/24 12:44 Pleural Fluid Gram Stain - Preliminary
01/20/24 22:23 Sputum Respiratory Culture - Preliminary
Gram negative bacilli
01/20/24 22:23 Sputum Gram Stain - Preliminary
01/22/24 12:44 Pleural Fluid Fungal Culture - Preliminary
Culture in progress.
Positive cultures are reported as soon as detected.
Final report to follow in four to five weeks.
01/20/24 14:20 Nasal Swab Influenza Types A & B (HESHAM) - Final
Negative for Influenza A & B, NAAT
Negative results must be combined with clinical observations
and patient history.
Nucleic Acid Amplification test (NAAT)performed on the
[employer] platform.
--- NOTE | 2024-01-23 16:47 | PHA.VAN.IN ---
Assessment
- Assessment
Renal Function: Appears similar to baseline
Concomitant Antimicrobials: piperacillin/tazobactam
AUC Dosing Plan
- Dosing Variables
Dosing Weight (kg): 61.4
Dosing CrCl (ml/min): 57
Vd coefficient (L/kg): 0.7
- Empiric Dosing
Initial / Loading Dose: vanc 1500mg pending administration
Maintenance Regimen: vanc 1000mg Q24H
Estimated AUC (mcg*h/mL): 462
Estimated Peak (mcg*h/mL): 32.7
Estimated Trough (mcg/ml): 10
Estimated Half Life (H): 13.4
- Monitoring
No levels ordered at this time: consider levels in next few days
MRSA Screen: Ordered per protocol
Pharmacokinetics Vancomycin I
- -
Patient Age: 83
Patient Sex: Male
Vancomycin Day #: 1
Indication: Pulmonary/Respiratory
Requesting Provider: Dr. Sorto
Pertinent Antimicrobial Allergies:
no pertinent antimicrobial allergies
Height / Weight:
Height 5 ft 4 in
Actual Weight 61.4 kg
- Vital Signs / Lab Results
Temp Pulse Resp BP Pulse Ox
98.1 F 99 26 119/68 95
01/23/24 11:40 01/23/24 15:20 01/23/24 15:20 01/23/24 14:00 01/23/24 15:20
Lab Results - Hematology
01/22/24 01/23/24
06:46 05:53
WBC 15.0 H 14.4 H
Lab Results - Chemistry
01/21/24 01/22/24 01/23/24
06:15 06:46 05:53
BUN 39 H 30 H 33 H
Creatinine 0.8 0.8 0.8
Estimated Creat Clear 52 52 57
Microbiology Results
01/20/24 22:23 Respiratory Culture - Final
Sputum Pseudomonas aeruginosa
Gram Stain - Final
01/22/24 12:44 Body Fluid Culture - Preliminary
Pleural Fluid No Growth After 18-24 Hours
Gram Stain - Preliminary
01/20/24 10:06 Blood Culture - Preliminary
Blood/Venous No Growth in 72 hours- Final report to follow
01/20/24 09:57 Blood Culture - Preliminary
Blood/Venous No Growth in 72 hours- Final report to follow
01/22/24 12:44 Fungal Culture - Preliminary
Pleural Fluid Culture in progress.
Positive cultures are reported as soon as detected.
Final report to follow in four to five weeks.
[2024-01-23] MEDS: LOVENOX 40 MG SC (16:57)
[2024-01-23] MEDS: VANCOCIN 300 MG IV (17:33)
[2024-01-23] MEDS: VANCOCIN 300 ML IV (17:33)
[2024-01-23] MEDS: PEPCID 20 MG PO (21:05)
[2024-01-23] MEDS: MELATONIN 3 MG PO ×2 (22:08)
[2024-01-23] MEDS: XALATAN OPHTHALMIC SOLUTION 1 DROP BOTH EYES (22:09)
[2024-01-24] VITALS (12 sets, daily range): BP systolic 96–144; BP diastolic 59–81
[2024-01-24 03:38] LABS: Hematocrit 39.2 % (39.0-52.0); Hemoglobin 12.9 g/dL (13.0-18.0); Mean Corp Hgb Conc. 32.9 g/dL (33.0-37.0); Mean Corpuscular Hgb 30.5 pg (27.0-31.0); Mean Corpuscular Volume 92.7 fL (80.0-94.0); Mean Platelet Volume 8.8 fL (7.4-10.4); Platelet Count 375 10^3/uL (130-400); Red Blood Cell Count 4.23 10^6/uL (4.70-6.10); Red Cell Dist. Width 13.9 % (11.5-14.5); White Blood Cell Count 15.4 10^3/uL (4.8-10.8)
[2024-01-24] MEDS: TYLENOL 650 MG PO (04:06)
[2024-01-24] MEDS: ZOSYN 50 IV ×2 (04:06→09:10)
[2024-01-24 04:16] LABS: Blood Urea Nitrogen 25 mg/dl (9-20); Calcium 7.9 mg/dl (8.4-10.2); Carbon Dioxide 27 mmol/L (22-30); Chloride 107 mmol/L (98-107); Estimated Creatinine Clearance 50 ml/min; Glucose 113 mg/dl (70-99); Phosphorus 4.3 mg/dl (2.5-4.5); Potassium 4.6 mmol/L (3.5-5.1); Sodium 139 mmol/L (135-145); eGFR > 60.00
--- NOTE | 2024-01-24 04:55 | PTCARENOTE ---
No acute events overnight. Left chest tube with only 50 ml output purulent drainage. PRN tylenol given for pain at chest tube site with coughing. Dressing clean dry and intact. No crepitus.
[2024-01-24] MEDS: VANCOCIN 200 IV (05:37)
[2024-01-24] MEDS: DUONEB 3 ML INH ×4 (07:21→18:23)
--- NOTE | 2024-01-24 08:50 | W.PN.PUL3 ---
Today's Communication / Plan
-
Monitor chest tube output in 12 hour intervals
Start tPA and DNase through chest tube - BID x 3 days; if no improvement then will need CT surgicery eval for VATS with washout of pleural space
Once drainage is <150cc/day and L-lung appears well re-expanded on CXR, we will obtain CT Chest at that point
Continue antibiotics - only zosyn indicated a this point; mrsa swab negative - no need for IV vanco
Follow up pleural fluid culture sensitivities/cytology
Assessment
-
Abnormal CT chest with left-sided pneumonia (mainly in LLL) with multi-loculated effusion due to Streptococcal empyema s/p small-bore chest tube (IR placed-01/22/24)
Hypoxemic respiratory insufficiency on supplemental O2
Left-sided pneumonia due to Pseudomonas aeruginosa (riley-sensitive)
Conditions present prior admission:
Hypertension
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 with Dr[address] Franco-PFTs have been stable over time.
Negative rheumatologic workup.
Chronic cough secondary to above
Chronic rhinitis
Non-smoker.
-
Assessment and plan:
CT scan findings new compared to 2019.
I do not appreciate any endobronchial lesion. Pulmonary mass cannot be ruled out.
Loculated pleural effusion/compressive atelectasis/infiltrate/leukocytosis and fevers at home.
Initially was considering post trauma as pt sustained a fall 2months ago from a ladder --> however based on pleural fluid appearance and characteristics, this is an empyema
Continue antibiotics for community-acquired infection
Interventional radiology: Chest tube placed on 01/21 --> c/t monitor drainage; follow up cultures and cytology.
Drainage slowed considerably from 5/6 - 5.7 --> will start lytic treatments through chest tube with tPA and DNase BID x 3 days
Discussed patient if chest tube with lytics is not effective at clearing the thick fluid, surgical consultation may be necessary.
-
Sputum culture grew pansensitive Pseudomonas aeruginosa
Continue Zosyn
-
Steroids were discontinued.
Follow fever curve and leukocytosis-
Incentive spirometry
MRSA screen negative and chest tube draining well - no need for IV vanco
Pleural fluid growing Streptococcus species - follow up sensitivities
-
History of mild pulmonary fibrosis stable over time-possible hypersensitivity pneumonitis. No evidence of honeycombing on CAT scan.
Patient has exposures to a barn at home.
Pulmonary function testing have been stable.
Follows up with Dr. Franco.
-
Will follow
Subjective Data
-
Date of Service:
Date of Service: January 24, 2024
Chief Complaint: Pulmonary Follow Up (Pleural effusion)
Subjective:
Pt seen this AM. Mild improvement seen on CXR this AM. 100cc output over last 24 hrs from the chest tube. Pt denies any worsening SOB, has some left sided chest pain. He is on room air with SpO2 99%, breathing comfortably. HR 103.
Review of Systems
General: Other (negative unless mentioned above)
Objective Data
Data Reviewed
Vital Signs / I&O / Oxygen:
Vital Signs
Temp Pulse Resp BP Pulse Ox
98.1 F 91 23 129/67 97
01/24/24 07:45 01/24/24 11:21 01/24/24 11:21 01/24/24 06:06 01/24/24 11:21
Intake and Output
01/23/24 01/24/24 01/25/24
06:59 06:59 06:59
Intake Total 520 / 520 1580 / 1580
Output Total 1210 / 1210 600 / 600
Balance -690 / -690 980 / 980
SaO2 97
Nasal Cannula flow liters per 2
minute
Physical Exam
General: Respiratory Distress (negative), Comfortable and Chills (negative)
HEENT: Normocephalic and Anicteric
Cardiovascular: S1-S2, Peripheral Edema (negative) and Other (tachycardic)
Respiratory: Wheeze (negative), Crackles (negative), Rhonchi (negative), Accessory Resp Muscle Use (negative), Chest Tube (left-sided chest tube draining purulent fluid) and Other (Inspiratory squeaks heard in LLL)
GI: Soft, Non Distended and Non Tender
Neurology: Awake and Alert
Skin: Warm and Dry
Labs/Micro/Reports
Lab Data
01/24/24 03:23
01/24/24 03:23
Microbiology
01/22/24 12:44 Pleural Fluid Body Fluid Culture - Preliminary
Streptococcus species
01/22/24 12:44 Pleural Fluid Gram Stain - Preliminary
01/20/24 10:06 Blood/Venous Blood Culture - Preliminary
No Growth in 4 days- Final report to follow
01/20/24 09:57 Blood/Venous Blood Culture - Preliminary
No Growth in 4 days- Final report to follow
01/23/24 18:00 Nose Nasal Screen MRSA (PCR) - Final
MRSA not detected - performed by PCR methodology.
01/20/24 22:23 Sputum Respiratory Culture - Final
Pseudomonas aeruginosa
01/20/24 22:23 Sputum Gram Stain - Final
01/22/24 12:44 Pleural Fluid Fungal Culture - Preliminary
Culture in progress.
Positive cultures are reported as soon as detected.
Final report to follow in four to five weeks.
[2024-01-24] MEDS: COZAAR 50 MG PO (09:05)
[2024-01-24] MEDS: LIPITOR 20 MG PO (09:05)
[2024-01-24] MEDS: THERAGRAN 1 TABLET PO (09:05)
[2024-01-24] MEDS: SINGULAIR 10 MG PO (09:05)
[2024-01-24] MEDS: VITAMIN D3 (cholecalciferol) 25 MCG PO (09:05)
[2024-01-24] MEDS: ANUSOL HC 25 MG RECTAL (09:06)
[2024-01-24] MEDS: ALPHAGAN 0.2% EYE DROPS 1 DROP BOTH EYES ×2 (09:06→19:01)
--- NOTE | 2024-01-24 09:24 | W.PN.HOSP.TC ---
Today's Communication/Plan
-
Continue IV antibiotics. ID consult
Assessment / Plan
Assessment / Plan
Physical Exam
General: Acutely ill. No pallor, cyanosis, or jaundice.
HEENT: Throat clear. PERRLA Normocephalic atraumatic
NECK: Supple. No JVD Carotid Bruits
RESPIRATORY: Lungs decreased breath sounds bilateral more pronounced on the left. No crackles wheezes stridor
CVS: S1, S2 normal. RRR. No murmur, rub or gallop.
ABDOMEN: Soft, non-tender. No distension. BS+/normal.
EXTREMITIES: No peripheral cyanosis or edema.
ACO COORDINATOR: AOx3. No focal deficits.
A/P:
Acute hypoxic respiratory insufficiency:
Likely related to pneumonia/empyema
Pulmonary consult and follow-up appreciated
Supplemental oxygen as needed
Incentive spirometry
Add guaifenesin
Pseudomonas vs Strep pneumonia/Highly likely empyema:
Continue IV Zosyn
Discontinue vancomycin
Chest tube in place
Pulmonary will start tPA DNase through chest tube
May need CT surgery eval for VATS if not effective drainage
MRSA negative, influenza negative, COVID-19 negative
Blood cultures no growth
Sputum culture Pseudomonas aeruginosa
Follow-up pleural fluid cultures but so far appears to be growing Streptococcus
ID consult
Chest pain due to recent trauma/chest tube:
Continue Tylenol, add Toradol as needed for moderate pain and oxycodone for severe pain.
Add bowel regimen
Interstitial lung disease/hypersensitivity pneumonitis:
Follow-up with pulmonary as outpatient
Hypertension:
Continue losartan 50 mg p.o. daily
Hyperlipidemia:
Continue atorvastatin 20 mg p.o. daily
DVT prophylaxis:
Lovenox SQ
CODE STATUS:
Full code
Total time spent on today's encounter was 52 minutes which included time spent in counseling the patient/family regarding diagnosis and treatment plan as listed above, goals of care, and symptom management. Case was discussed with nursing staff,
specialists, and care coordinators/case management. All labs and imaging personally reviewed by me. Remainder the time spent in detailed review of previous records, lab data, imaging, and other medical provider documentation.
Anticipated Discharge: > 48 hours
Subjective/Interval History
-
Date of Service: January 24, 2024
Patient with cough and shortness of breath. Chest tube in place. Complains pain is significant in the chest tube site. Afebrile
Objective Data
-
Labs:
Laboratory Results
01/24/24
03:23
WBC 15.4 H
Hgb 12.9 L
Hct 39.2
Plt Count 375
Sodium 139
Potassium 4.6
Chloride 107
Carbon Dioxide 27
BUN 25 H
Creatinine 0.9
Glucose 113 H
Calcium 7.9 L
Vital Signs:
Vital Signs
Temp Pulse Resp BP Pulse Ox
98.1 F 80 20 129/67 98
01/24/24 04:16 01/24/24 07:25 01/24/24 07:25 01/24/24 06:06 01/24/24 07:25
I&O
01/23/24 01/24/24 01/25/24
06:59 06:59 06:59
Intake Total 520 / 520 1580 / 1580
Output Total 1210 / 1210 600 / 600
Balance -690 / -690 980 / 980
Review of Systems
-
All other systems: Reviewed and negative
--- NOTE | 2024-01-24 10:33 | PN.IRAD.UPD ---
Update Note - [facility]
- -
Injected TPA and Dornase into left sided chest tube and clamped at 10:30. Nurse informed to unclamp tube at 12:30.
Quincy Mcdonough RT(R)()
--- NOTE | 2024-01-24 12:44 | PTCARENOTE ---
Chest tube unclamped at 1230, suction is on .
[2024-01-24] MEDS: ROXICODONE 5 MG PO (13:16)
--- NOTE | 2024-01-24 15:36 | CON.ID ---
Consultation
-
Date/Time Consultation Requested: January 24, 2024 1437
Date/Time Consultation Performed: January 24, 2024 1535
Requesting Provider: Dr. Jose G Sorto
Performing Provider: Dr. Mary Beth Hall
Reason for Consultation: Pseudomonas PNA/empyema
Chief Complaint / Past History
Chief Complaint
SOB
History of Present Illness
83-year-old male with chronic cough, interstitial lung disease versus hypersensitivity pneumonitis who presented to the hospital on January 19 with progressive shortness of breath. He states he fell off of a ladder landing on his left side/chest on the
concrete approximately 2 months ago. 2 weeks ago he started having shortness of breath which got progressively worse. Positive cough productive of thick sputum. Had subjective fevers and chills. He felt extremely weak. He came to the ER January 19.
Patient noted to be hypoxic. White count of 10.7. Chest x-ray showed left pleural effusion with pneumonia. He was started on ceftriaxone and azithromycin. The chest CT then showed a partially lobulated left pleural effusion with underlying
consolidation. On January 21, he underwent thoracentesis and chest tube placement with purulent drainage. Pleural fluid consistent with exudate/empyema. On January 19 the sputum culture grew Pseudomonas. The pleural fluid culture grew Streptococcus.
Antibiotics changed to Zosyn yesterday. Patient denies ill contacts. No significant water exposure. [place] 3 horses. No history of pneumonia in the past. Today he complains of discomfort at the chest tube site. Cough is a bit
better.
Past History
Additional Past Medical History:
Interstitial lung disease vs hypersensitive pneumonitis with chronic cough
Hypertension
Dyslipidemia
Allergy History:
No Known Allergies Allergy (Verified 01/20/24 08:05)
Medications Reviewed: Yes
Current Antibiotics:
Zosyn day 2
Status post ceftriaxone/azithromycin x 4 days
Status post vancomycin x 3 days
Social History
Tobacco: Non-Smoker
Alcohol: None
Drug: None
Personal:
Living: With Family
Family History
Family History: Not Pertinent
Review of Systems
Review of Systems
General: Change in Appetite
HEENT: Negative Sinus Problems, Headache or Pharyngitis
Respiratory: Dyspnea, Cough and Sputum Production
Gasteroenterology: Other (no diarrhea); Negative Nausea or Vomiting
Genital / Urological: Negative Dysuria or Flank Pain
Endocrine: Weakness and Fatigue
Skin / Hair / Nails: Negative Rash
Neurological: Negative Headache or Dizziness
All systems: All other systems were reviewed and were negative
Vital Signs
Temp Pulse Resp BP Pulse Ox
98.5 F 98 19 113/68 96
01/24/24 11:45 01/24/24 14:00 01/24/24 14:00 01/24/24 14:00 01/24/24 14:00
Physical Exam
Physical Exam
Constitutional: No Acute Distress
Eyes: No Conjunctival Hemorrhage and Sclera Anicteric
Cardiovascular: Regular Rate and S1/S2
Pulmonary: Other (Decreased BS left. Chest tube with purulence.)
Gastrointestinal: Soft, Non Tender, Non Distended and Normal Bowel Sounds
Genito-Urinary: Negative CVA Tenderness
Extremities: Negative Edema
Neurological: AO x 3
Lab / Diagnostic Study Results
01/24/24 03:23
01/24/24 03:23
Abs Immat Gran (auto) 0.2 10^3/uL (0-0.05) H 01/20/24 09:10
Absolute Neuts (auto) 12.0 10^3/uL (1.4-6.5) H 01/20/24 09:10
Absolute Lymphs (auto) 0.9 10^3/uL (1.2-3.4) L 01/20/24 09:10
Absolute Monos (auto) 1.4 10^3/uL (0.1-0.6) H 01/20/24 09:10
Absolute Basos (auto) 0.1 10^3/uL (0-0.2) 01/20/24 09:10
Immature Gran % 1.2 % (0-0.5) H 01/20/24 09:10
Neutrophils % 81.9 % (42.2-75.2) H 01/20/24 09:10
Lymphocytes % 6.3 % (20.5-51.1) L 01/20/24 09:10
Monocytes % 9.7 % (1.7-9.3) H 01/20/24 09:10
Eosinophils % 0.1 % (0-6) 01/20/24 09:10
Basophils % 0.8 % (0-2) 01/20/24 09:10
Microbiology Results
Micro:
01/22/24 12:44 Body Fluid Culture - Preliminary
Pleural Fluid Streptococcus species
Gram Stain - Preliminary
01/20/24 10:06 Blood Culture - Preliminary
Blood/Venous No Growth in 4 days- Final report to follow
01/20/24 09:57 Blood Culture - Preliminary
Blood/Venous No Growth in 4 days- Final report to follow
01/23/24 18:00 Nasal Screen MRSA (PCR) - Final
Nose MRSA not detected - performed by PCR methodology.
01/20/24 22:23 Respiratory Culture - Final
Sputum Pseudomonas aeruginosa
Gram Stain - Final
01/22/24 12:44 Fungal Smear - Pending
Pleural Fluid Fungal Culture - Preliminary
Culture in progress.
Positive cultures are reported as soon as detected.
Final report to follow in four to five weeks.
01/22/24 12:44 Acid Fast Bacilli Smear - Pending
Pleural Fluid Acid Fast Bacilli Culture - Pending
01/20/24 14:20 Influenza Types A & B ([facility]AM) - Final
Nasal Swab Negative for Influenza A & B, NAAT
Negative results must be combined with clinical observations
and patient history.
Nucleic Acid Amplification test (NAAT)performed on the
[employer] platform.
01/24/24 CXR: Mildly improved probably loculated left pleural effusion. Stable left-sided chest tube.
01/21/[address]: Moderate lobulated likely at least partially loculated left pleural effusion seen throughout the left hemithorax with accompanying areas of parenchymal consolidation/atelectasis most prominent in the left lower lobe. Small left
lung mass cannot be entirely excluded on the basis of this study. Please see above comments.
Assessment / Plan
# Streptococcal left empyema and PNA
# Pseudomonas PNA
# Leukocytosis
- Continue chest tube drainage
-for pleurolysis per Pulm
-Agree with Zosyn.
- Follow [facility].
--- NOTE | 2024-01-24 17:12 | CM ---
Patient with Dx Acute hypoxic respiratory insufficiency, pneumonia/empyema. Room air. Chest tube - plan tPA and DNase through chest tube - BID x 3 days. Receiving IV Abx. PT & OT recommend HH.
Met with patient who was sleeping, Alma Delia at bedside.
Discussed patient's current mobility - agrees to [facility] for SN/PT/OT and chooses [facility].
feels she can manage patient at home without hiring a caregiver. A grand-daughter and grandson are staying with them.
Plan referral to [facility].
[2024-01-24] MEDS: LOVENOX 40 MG SC (18:34)
[2024-01-24] MEDS: MUCINEX 600 MG PO ×2 (18:34→19:01)
[2024-01-24] MEDS: ZOSYN 100 IV ×2 (18:34→22:09)
[2024-01-24] MEDS: DILAUDID 0.25 MG IV (18:50)
[2024-01-24] MEDS: ANUSOL HC RECTAL (19:02)
--- NOTE | 2024-01-24 19:05 | W.SUR.POST ---
Addendum entered and electronically signed by Ger Finnegan MD 01/25/24 20:00:
Correction to Date of Service: 01/24/2024
Original Note:
Surgical Immediate Post Op
Note
Instillation of Lytic Medications into Tube Thoracostomy
Pre Op Diagnosis: Left-sided empyema
Post Op Diagnosis: Same as above
Procedure Performed: tPA and dornase instillation into chest tube
Primary Surgeon/proceduralist: Dr. Finnegan
Secondary Surgeons: n/a
Anesthesia: n/a
Estimated Blood Loss: n/a
Fluids: 30cc of NS 0.9%
Drains/Shunts: n/a
Specimens/Cultures: n/a
Doppler/Duplex/Angio (Y/N): n/a
Complications: No immediate complications
Operative/Procedure Details: Patient was positioned for adequate access to left-sided chest tube. Three-way stopcock was attached to the end of the pre-existing chest tube for better medication instillation. Before procedure started, sterile
technique was utilized with handwashing, facemask, gown and sterile gloves. Chest tube was removed off suction as well. NS 0.9% was instilled into chest tube, and then 10mg alteplase was instilled into the chest tube without resistance. 10cc of
0.9% NS was instilled, and then 5mg dornase was instilled into the chest tube without resistance. Finally, another 10cc of NS 0.9% was instilled into the chest tube without resistance. The stop cock was turned towards the patient to allow the
lytic medications to remain in pleural space. Alcohol swabs were utilized whenever any medication was attached to the female leur lock end of the 3-way stop-cock. This was to improve sterility. The procedure ended without any complications.
I instructed to the RN to keep chest tube clamped for 2 hours, and then place chest tube back onto negative suction at -[id number], and place stop-cock to neutral position to allow flow of fluid out of pleural space into pleuro-vac container.
--- NOTE | 2024-01-24 19:25 | PTCARENOTE ---
OOB for few hours this am- around 1pm after we unclamped CT and placed back to suctionpt c/o 06/28 pain- Kareen administered and within an 1 hour he was resting comfortably.
IV Dilaudid administered this pm and assisted pulm with instillation at bedside. CT output 225ml.
[2024-01-24] MEDS: XALATAN OPHTHALMIC SOLUTION 1 DROP BOTH EYES (22:08)
[2024-01-24] MEDS: PEPCID 20 MG PO (22:08)
[2024-01-24] MEDS: MELATONIN 3 MG PO (22:08)
[2024-01-25] VITALS (12 sets, daily range): BP systolic 109–143; BP diastolic 57–72
[2024-01-25 03:29] LABS: Hemoglobin 14.1 g/dL (13.0-18.0); Mean Corp Hgb Conc. 33.6 g/dL (33.0-37.0); Mean Corpuscular Hgb 30.7 pg (27.0-31.0); Mean Corpuscular Volume 91.3 fL (80.0-94.0); Mean Platelet Volume 8.7 fL (7.4-10.4); Platelet Count 409 10^3/uL (130-400); White Blood Cell Count 19.4 10^3/uL (4.8-10.8)
[2024-01-25] MEDS: ZOSYN 100 IV ×4 (03:42→22:05)
[2024-01-25 03:52] LABS: Blood Urea Nitrogen 19 mg/dl (9-20); Calcium 7.7 mg/dl (8.4-10.2); Carbon Dioxide 27 mmol/L (22-30); Chloride 105 mmol/L (98-107); Estimated Creatinine Clearance 65 ml/min; Glucose 119 mg/dl (70-99); Potassium 4.5 mmol/L (3.5-5.1); Sodium 134 mmol/L (135-145); eGFR > 60.00
--- NOTE | 2024-01-25 05:54 | PTCARENOTE ---
Patient appeared to rest comfortably throughout the night. Chest tube output 210- dressing changed. No crepitus.
[2024-01-25] MEDS: DUONEB 3 ML INH ×4 (07:36→19:02)
--- NOTE | 2024-01-25 08:45 | W.PN.HOSP.TC ---
Today's Communication/Plan
-
Continue IV antibiotics. Continue chest tube drainage.
Assessment / Plan
Assessment / Plan
Physical Exam
General: Acutely ill. No pallor, cyanosis, or jaundice.
HEENT: Throat clear. PERRLA Normocephalic atraumatic
NECK: Supple. No JVD Carotid Bruits
RESPIRATORY: Lungs decreased breath sounds bilateral more pronounced on the left. No crackles wheezes stridor
CVS: S1, S2 normal. RRR. No murmur, rub or gallop.
ABDOMEN: Soft, non-tender. No distension. BS+/normal.
EXTREMITIES: No peripheral cyanosis or edema.
GRANT MANAGER: AOx3. No focal deficits.
A/P:
Acute hypoxic respiratory insufficiency:
Likely related to pneumonia/empyema
Pulmonary consult and follow-up appreciated
Supplemental oxygen as needed
Incentive spirometry
Add guaifenesin
Pseudomonas and or Strep pneumonia/Highly likely empyema:
Continue IV Zosyn
Discontinue vancomycin
Chest tube in place
Pulmonary will start tPA DNase through chest tube
May need CT surgery eval for VATS if not effective drainage
MRSA negative, influenza negative, COVID-19 negative
Blood cultures no growth
Sputum culture Pseudomonas aeruginosa
Follow-up pleural fluid cultures but so far appears to be growing Streptococcus
ID consult appreciated
Chest pain due to recent trauma/chest tube:
Continue Tylenol, add Toradol as needed for moderate pain and oxycodone for severe pain.
Add bowel regimen
Interstitial lung disease/hypersensitivity pneumonitis:
Follow-up with pulmonary as outpatient
Hypertension:
Continue losartan 50 mg p.o. daily
Hyperlipidemia:
Continue atorvastatin 20 mg p.o. daily
DVT prophylaxis:
Lovenox SQ
CODE STATUS:
Full code
Total time spent on today's encounter was 52 minutes which included time spent in counseling the patient/family regarding diagnosis and treatment plan as listed above, goals of care, and symptom management. Case was discussed with nursing staff,
specialists, and care coordinators/case management. All labs and imaging personally reviewed by me. Remainder the time spent in detailed review of previous records, lab data, imaging, and other medical provider documentation.
Anticipated Discharge: > 48 hours
Subjective/Interval History
-
Date of Service: January 25, 2024
Patient states the pain from chest tube site is much better with pain medications were adjusted yesterday. Still frail overall. Afebrile
Objective Data
-
Labs:
Laboratory Results
01/25/24
03:12
WBC 19.4 H
Hgb 14.1
Hct 42.0
Plt Count 409 H
Sodium 134 L
Potassium 4.5
Chloride 105
Carbon Dioxide 27
BUN 19
Creatinine 0.7
Glucose 119 H
Calcium 7.7 L
Vital Signs:
Vital Signs
Temp Pulse Resp BP Pulse Ox
98.5 F 95 14 131/71 96
01/25/24 03:00 01/25/24 07:41 01/25/24 07:41 01/25/24 06:00 01/25/24 07:41
I&O
01/24/24 01/25/24 01/26/24
06:59 06:59 06:59
Intake Total 1580 / 1580 1790 / 1790
Output Total 600 / 600 1520 / 1520
Balance 980 / 980 270 / 270
[2024-01-25] MEDS: LIPITOR 20 MG PO (08:47)
[2024-01-25] MEDS: VITAMIN D3 (cholecalciferol) 25 MCG PO (08:47)
[2024-01-25] MEDS: ALPHAGAN 0.2% EYE DROPS 1 DROP BOTH EYES ×2 (08:47→19:36)
[2024-01-25] MEDS: MIRALAX 17 GRAMS PO (08:48)
[2024-01-25] MEDS: THERAGRAN 1 TABLET PO (08:48)
[2024-01-25] MEDS: COZAAR 50 MG PO (08:48)
[2024-01-25] MEDS: ANUSOL HC 25 MG RECTAL (08:48)
[2024-01-25] MEDS: SINGULAIR 10 MG PO (08:48)
[2024-01-25] MEDS: MUCINEX 600 MG PO ×2 (08:48→19:36)
--- NOTE | 2024-01-25 11:10 | W.SUR.POST ---
Addendum entered and electronically signed by Ger Finnegan MD 01/25/24 20:00:
Correction to Date of Service: 01/25/2024
Original Note:
Surgical Immediate Post Op
Note
Instillation of Lytic Medications into Tube Thoracostomy
Pre Op Diagnosis: Left-sided empyema
Post Op Diagnosis: Same as above
Procedure Performed: tPA 10mg and dornase 5mg instillation into chest tube
Primary Surgeon/proceduralist: Dr. Finnegan
Secondary Surgeons: n/a
Anesthesia: n/a
Estimated Blood Loss: n/a
Fluids: 30cc of NS 0.9%
Drains/Shunts: n/a
Specimens/Cultures: n/a
Doppler/Duplex/Angio (Y/N): n/a
Complications: No immediate complications
Operative/Procedure Details: Patient was positioned for adequate access to left-sided chest tube. Three-way stopcock was arranged into off-position towards patient, essentially clamping chest tube. Before procedure started, sterile technique was
utilized with handwashing, facemask, gown and sterile gloves. Chest tube was removed off suction as well. NS 0.9% was instilled into chest tube, and then 10mg alteplase was instilled into the chest tube without resistance. 10cc of 0.9% NS was
instilled, and then 5mg dornase was instilled into the chest tube without resistance. Finally, another 10cc of NS 0.9% was instilled into the chest tube without resistance. The stop cock was turned towards the patient to allow the lytic
medications to remain in pleural space. Alcohol swabs were utilized whenever any medication was attached to the female leur lock end of the 3-way stop-cock. This was to improve sterility. The procedure ended without any complications.
I instructed to the RN to keep chest tube clamped for 2 hours, and then place chest tube back onto negative suction at -[id number], and place stop-cock to neutral position to allow flow of fluid out of pleural space into pleuro-vac container.
--- NOTE | 2024-01-25 11:18 | W.PN.PUL3 ---
Today's Communication / Plan
-
Monitor chest tube output in 12 hour intervals
Continue tPA and DNase through chest tube - BID x 3 days - will get instillations #3 and #4 today. Check CXR in AM.
If no improvement then will need CT surgical eval for VATS with washout of pleural space
Once drainage is <150cc/day and L-lung appears well re-expanded on CXR, we will obtain CT Chest at that point
Continue antibiotics - only josesyn indicated a this point; mrsa swab negative
Assessment
-
Impression:
Abnormal CT chest with left-sided pneumonia (mainly in LLL) with multi-loculated effusion due to Streptococcus viridans empyema s/p small-bore chest tube (IR placed-01/22/24)
Hypoxemic respiratory insufficiency
Left-sided pneumonia due to Pseudomonas aeruginosa (riley-sensitive)
Conditions present prior admission:
Hypertension
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
Follow[address] with Dr. Franco-PFTs have been stable over time.
Negative rheumatologic workup.
Chronic cough secondary to above
Chronic rhinitis
Non-smoker.
-
Assessment and plan:
CT scan findings new compared to 2019.
No appreciable endobronchial lesion. Pulmonary mass cannot be ruled out.
Loculated pleural effusion/compressive atelectasis/infiltrate/leukocytosis and fevers at home.
Initially was considering post trauma as pt sustained a fall 2months ago from a ladder --> however based on pleural fluid appearance and characteristics, this is an empyema
Continue antibiotics for community-acquired infection
Interventional radiology: Chest tube placed on 01/21 --> c/t monitor drainage; cytology negative
Drainage slowed considerably from 01/22 - 01/23 --> on 01/23, started lytic treatments through chest tube with tPA and DNase BID x 3 days - will give lytic treatments #3 and #4 today out of total of 6.
Discussed patient if chest tube with lytics is not effective at clearing the fluid, surgical consultation may be necessary.
-
Sputum culture grew pansensitive Pseudomonas aeruginosa
Continue Zosyn
-
Steroids were discontinued.
Follow fever curve and leukocytosis-
Incentive spirometry
MRSA screen negative and chest tube draining well - no need for IV vanco
Pleural fluid growing Streptococcus viridans - defer to ID regarding if additional Abx needed
-
History of mild pulmonary fibrosis stable over time-possible hypersensitivity pneumonitis. No evidence of honeycombing on CAT scan.
Patient has exposures to a barn at home.
Pulmonary function testing have been stable.
Follows up with Dr. Franco.
-
Will follow
Subjective Data
-
Date of Service:
Date of Service: January 25, 2024
Chief Complaint: Pulmonary Follow Up (Pleural effusion)
Subjective:
Pt seen this AM. He was resting in bed in NAD. On room air saturating 98%. HR 97 and BP 115/60. He denies chest pain currently. Denies FRIEDMAN, abd pain, SOB at rest, N./V/f/c. He does endorse feeling very tired today.
Review of Systems
General: Other (negative unless mentioned above)
Objective Data
Data Reviewed
Vital Signs / I&O / Oxygen:
Vital Signs
Temp Pulse Resp BP Pulse Ox
98.0 F 94 22 114/68 98
01/25/24 07:35 01/25/24 12:00 01/25/24 12:00 01/25/24 12:00 01/25/24 12:00
Intake and Output
01/24/24 01/25/24 01/26/24
06:59 06:59 06:59
Intake Total 1580 / 1580 1790 / 1790
Output Total 600 / 600 1520 / 1520 300 / 300
Balance 980 / 980 270 / 270 -300 / -300
SaO2 98
Nasal Cannula flow liters per 2
minute
Physical Exam
General: Respiratory Distress (negative), Comfortable and Chills (negative)
HEENT: Normocephalic and Anicteric
Cardiovascular: S1-S2 and Peripheral Edema (negative)
Respiratory: Wheeze (negative), Crackles (negative), Rhonchi (negative), Accessory Resp Muscle Use (negative), Chest Tube (left-sided chest tube draining purulent fluid) and Other (Inspiratory squeaks heard in LLL)
GI: Soft, Non Distended and Non Tender
Neurology: Awake and Alert
Skin: Warm and Dry
Labs/Micro/Reports
Lab Data
01/25/24 03:12
01/25/24 03:12
Microbiology
01/22/24 12:44 Pleural Fluid Body Fluid Culture - Preliminary
Viridans Streptococcus Group
01/22/24 12:44 Pleural Fluid Gram Stain - Preliminary
01/20/24 10:06 Blood/Venous Blood Culture - Final
No Growth - Final Report
01/20/24 09:57 Blood/Venous Blood Culture - Final
No Growth - Final Report
01/22/24 12:44 Pleural Fluid Acid Fast Bacilli Smear - Preliminary
01/22/24 12:44 Pleural Fluid Acid Fast Bacilli Culture - Preliminary
01/23/24 18:00 Nose Nasal Screen MRSA (PCR) - Final
MRSA not detected - performed by PCR methodology.
01/20/24 22:23 Sputum Respiratory Culture - Final
Pseudomonas aeruginosa
01/20/24 22:23 Sputum Gram Stain - Final
01/22/24 12:44 Pleural Fluid Fungal Culture - Preliminary
Culture in progress.
Positive cultures are reported as soon as detected.
Final report to follow in four to five weeks.
--- NOTE | 2024-01-25 13:24 | W.PN.ID1 ---
Date of Service
Date of Service: January 25, 2024
Today's Communication
Continue chest tube drainage and Zosyn.
Assessment / Plan
# Viridans streptococcus left empyema and PNA
# Pseudomonas PNA
# Leukocytosis trending up
- Continue chest tube drainage/ pleurolysis per Pulm
- Continue Zosyn.
- Follow [facility].
#Additional Past Medical History:
Interstitial lung disease vs hypersensitive pneumonitis with chronic cough
Hypertension
Dyslipidemia
Chief Complaint
-: Pneumonia and Other (empyema)
Subjective / Review of Systems
c/o discomfort at chest tube site
Vital Signs / Physical Exam
Vital Signs
Vital Signs
Temp Pulse Resp BP Pulse Ox
98.0 F 94 22 114/68 98
01/25/24 07:35 01/25/24 12:00 01/25/24 12:00 01/25/24 12:00 01/25/24 12:00
Physical Exam
Constitutional: No Acute Distress
Cardiovascular: Regular Rate and S1/S2
Pulmonary: Other (left chest tube: + purulence)
Gastrointestinal: Soft, Non Tender, Non Distended and Normal Bowel Sounds
Neurological: AO x 3
Objective Data
Lab Data
Lab Results
01/25/24 03:12
01/25/24 03:12
Estimated Creat Clear 65 ml/min 01/25/24 03:12
Total Bilirubin 1.1 mg/dl (0.2-1.3) 01/20/24 10:06
AST 31 U/L (17-59) 01/20/24 10:06
ALT 26 U/L (0-50) 01/20/24 10:06
Alkaline Phosphatase 143 U/L (38-126) H 01/20/24 10:06
Most recent labs reviewed.
Micro Results:
01/22/24 12:44 Body Fluid Culture - Preliminary
Pleural Fluid Viridans Streptococcus Group
Gram Stain - Preliminary
01/20/24 10:06 Blood Culture - Final
Blood/Venous No Growth - Final Report
01/20/24 09:57 Blood Culture - Final
Blood/Venous No Growth - Final Report
01/22/24 12:44 Acid Fast Bacilli Smear - Preliminary
Pleural Fluid Acid Fast Bacilli Culture - Preliminary
01/23/24 18:00 Nasal Screen MRSA (PCR) - Final
Nose MRSA not detected - performed by PCR methodology.
01/20/24 22:23 Respiratory Culture - Final
Sputum Pseudomonas aeruginosa
Gram Stain - Final
01/22/24 12:44 Fungal Smear - Pending
Pleural Fluid Fungal Culture - Preliminary
Culture in progress.
Positive cultures are reported as soon as detected.
Final report to follow in four to five weeks.
01/20/24 14:20 Influenza Types A & B ([facility]AM) - Final
Nasal Swab Negative for Influenza A & B, NAAT
Negative results must be combined with clinical observations
and patient history.
Nucleic Acid Amplification test (NAAT)performed on the
[employer] platform.
01/24/24 CXR: Mildly improved probably loculated left pleural effusion. Stable left-sided chest tube.
01/21/[address]: Moderate lobulated likely at least partially loculated left pleural effusion seen throughout the left hemithorax with accompanying areas of parenchymal consolidation/atelectasis most prominent in the left lower lobe. Small left
lung mass cannot be entirely excluded on the basis of this study. Please see above comments.
[2024-01-25] MEDS: LOVENOX 40 MG SC (17:11)
--- NOTE | 2024-01-25 18:35 | W.SUR.POST ---
Surgical Immediate Post Op
Note
Instillation of Lytic Medications into Tube Thoracostomy
Date of Service: 01/25/2024
Pre Op Diagnosis: Left-sided empyema
Post Op Diagnosis: Same as above
Procedure Performed: tPA 10mg and dornase 5mg instillation into chest tube (instillation #4 of 6)
Primary Surgeon/proceduralist: Dr. Finnegan
Secondary Surgeons: n/a
Anesthesia: n/a
Estimated Blood Loss: n/a
Fluids: 30cc of NS 0.9%
Drains/Shunts: n/a
Specimens/Cultures: n/a
Doppler/Duplex/Angio (Y/N): n/a
Complications: No immediate complications
Operative/Procedure Details: Patient was positioned for adequate access to left-sided chest tube. Three-way stopcock was arranged into off-position towards patient, essentially clamping chest tube. Before procedure started, sterile technique was
utilized with handwashing, facemask, gown and sterile gloves. Chest tube was removed off suction as well. NS 0.9% was instilled into chest tube, and then 10mg alteplase was instilled into the chest tube without resistance. 10cc of 0.9% NS was
instilled, and then 5mg dornase was instilled into the chest tube without resistance. Finally, another 10cc of NS 0.9% was instilled into the chest tube without resistance. The stop cock was turned towards the patient to allow the lytic
medications to remain in pleural space. Alcohol swabs were utilized whenever any medication was attached to the female leur lock end of the 3-way stop-cock. This was to improve sterility. The procedure ended without any complications.
I instructed to the RN to keep chest tube clamped for 2 hours, and then place chest tube back onto negative suction at -[id number], and place stop-cock to neutral position to allow flow of fluid out of pleural space into pleuro-vac container.
[2024-01-25] MEDS: ROXICODONE 5 MG PO (18:48)
[2024-01-25] MEDS: PEPCID 20 MG PO (19:36)
[2024-01-25] MEDS: XALATAN OPHTHALMIC SOLUTION 1 DROP BOTH EYES (19:38)
[2024-01-25] MEDS: ANUSOL HC RECTAL (19:40)
[2024-01-25] MEDS: MELATONIN 3 MG PO (22:05)
[2024-01-26] VITALS (14 sets, daily range): BP systolic 115–153; BP diastolic 50–86; PULSE 99–102; O2SAT 94
[2024-01-26] MEDS: ROXICODONE 5 MG PO ×2 (01:38→16:03)
[2024-01-26] MEDS: ZOSYN 100 IV (03:34)
[2024-01-26 03:45] LABS: Hematocrit 42.4 % (39.0-52.0); Hemoglobin 14.1 g/dL (13.0-18.0); Mean Corp Hgb Conc. 33.3 g/dL (33.0-37.0); Mean Corpuscular Hgb 30.8 pg (27.0-31.0); Mean Corpuscular Volume 92.6 fL (80.0-94.0); Mean Platelet Volume 8.6 fL (7.4-10.4); Platelet Count 408 10^3/uL (130-400); Red Blood Cell Count 4.58 10^6/uL (4.70-6.10); Red Cell Dist. Width 13.8 % (11.5-14.5); White Blood Cell Count 20.1 10^3/uL (4.8-10.8)
[2024-01-26 04:12] LABS: Blood Urea Nitrogen 22 mg/dl (9-20); Calcium 7.7 mg/dl (8.4-10.2); Carbon Dioxide 28 mmol/L (22-30); Chloride 104 mmol/L (98-107); Estimated Creatinine Clearance 50 ml/min; Glucose 111 mg/dl (70-99); Potassium 4.5 mmol/L (3.5-5.1); Sodium 134 mmol/L (135-145); eGFR > 60.00
--- NOTE | 2024-01-26 04:54 | PTCARENOTE ---
Patient's left chest tube with with 330 output since previous documented measurement. PRN roxycodone given for moderate pain at chest tube site. Dressing clean dry and intact. No crepitus. Remains on room air.
[2024-01-26] MEDS: DUONEB 3 ML INH ×2 (07:10→19:23)
[2024-01-26] MEDS: MUCINEX 600 MG PO ×2 (07:58→20:38)
[2024-01-26] MEDS: SINGULAIR 10 MG PO (07:58)
[2024-01-26] MEDS: ALPHAGAN 0.2% EYE DROPS 1 DROP BOTH EYES ×2 (07:58→20:38)
[2024-01-26] MEDS: MIRALAX PO (07:58)
[2024-01-26] MEDS: VITAMIN D3 (cholecalciferol) 25 MCG PO (07:58)
[2024-01-26] MEDS: ANUSOL HC RECTAL ×2 (07:58→20:38)
[2024-01-26] MEDS: COZAAR 50 MG PO (07:58)
[2024-01-26] MEDS: THERAGRAN 1 TABLET PO (07:58)
[2024-01-26] MEDS: LIPITOR 20 MG PO (07:58)
--- NOTE | 2024-01-26 09:00 | PTCARENOTE ---
Patient received from night shift supervisor. Patient resting comfortably in bed. AAO, VSS. No events noted over night. No complaints of pain this AM. Chest tube in place on left side, dressing changed 01/24. Set to wall suction -[id number], with moore output.
To get TPA again this AM. Call marin in reach.
--- NOTE | 2024-01-26 09:29 | W.PN.ID1 ---
Date of Service
Date of Service: January 26, 2024
Today's Communication
Change Zosyn to cefepime.
Assessment / Plan
# Viridans streptococcus left empyema and PNA
# Pseudomonas PNA
# Leukocytosis continues to trend up
- Continue chest tube drainage/ pleurolysis per Pulm
- Narrow Zosyn to cefepime.
- Follow wbc.
#Additional Past Medical History:
Interstitial lung disease vs hypersensitive pneumonitis with chronic cough
Hypertension
Dyslipidemia
Chief Complaint
-: Pneumonia and Other (empyema)
Subjective / Review of Systems
No new issues.
No diarrhea.
Vital Signs / Physical Exam
Vital Signs
Vital Signs
Temp Pulse Resp BP Pulse Ox
98.4 F 97 14 128/69 94
01/26/24 07:43 01/26/24 07:58 01/26/24 07:11 01/26/24 07:58 01/26/24 09:21
Physical Exam
Constitutional: No Acute Distress
Cardiovascular: Regular Rate
Pulmonary: Other (left chest tube in place)
Gastrointestinal: Soft, Non Tender and Non Distended
Extremities: Negative Edema
Objective Data
Lab Data
Lab Results
01/26/24 03:39
01/26/24 03:39
Estimated Creat Clear 50 ml/min 01/26/24 03:39
Total Bilirubin 1.1 mg/dl (0.2-1.3) 01/20/24 10:06
AST 31 U/L (17-59) 01/20/24 10:06
ALT 26 U/L (0-50) 01/20/24 10:06
Alkaline Phosphatase 143 U/L (38-126) H 01/20/24 10:06
Most recent labs reviewed.
Micro Results:
05/05/24 12:44 Fungal Smear - Final
Pleural Fluid No yeast or fungal elements seen.
Fungal Culture - Preliminary
Culture in progress.
Positive cultures are reported as soon as detected.
Final report to follow in four to five weeks.
01/22/24 12:44 Body Fluid Culture - Final
Pleural Fluid Viridans Streptococcus Group
Gram Stain - Final
01/20/24 10:06 Blood Culture - Final
Blood/Venous No Growth - Final Report
01/20/24 09:57 Blood Culture - Final
Blood/Venous No Growth - Final Report
01/22/24 12:44 Acid Fast Bacilli Smear - Preliminary
Pleural Fluid Acid Fast Bacilli Culture - Preliminary
01/23/24 18:00 Nasal Screen MRSA (PCR) - Final
Nose MRSA not detected - performed by PCR methodology.
01/20/24 22:23 Respiratory Culture - Final
Sputum Pseudomonas aeruginosa
Gram Stain - Final
01/20/24 14:20 Influenza Types A & B ([facility]) - Final
Nasal Swab Negative for Influenza A & B, NAAT
Negative results must be combined with clinical observations
and patient history.
Nucleic Acid Amplification test (NAAT)performed on the
[employer] platform.
01/24/24 CXR: Mildly improved probably loculated left pleural effusion. Stable left-sided chest tube.
01/21/[address]: Moderate lobulated likely at least partially loculated left pleural effusion seen throughout the left hemithorax with accompanying areas of parenchymal consolidation/atelectasis most prominent in the left lower lobe. Small left
lung mass cannot be entirely excluded on the basis of this study. Please see above comments.
--- NOTE | 2024-01-26 09:48 | W.PN.HOSP.TC ---
Today's Communication/Plan
-
Continue IV antibiotics. Continue chest tube care.
Assessment / Plan
Assessment / Plan
Physical Exam
General: Acutely ill. No pallor, cyanosis, or jaundice.
HEENT: Throat clear. PERRLA Normocephalic atraumatic
NECK: Supple. No JVD Carotid Bruits
RESPIRATORY: Lungs decreased breath sounds bilateral more pronounced on the left. No crackles wheezes stridor
CVS: S1, S2 normal. RRR. No murmur, rub or gallop.
ABDOMEN: Soft, non-tender. No distension. BS+/normal.
EXTREMITIES: No peripheral cyanosis or edema.
INDUSTRIAL SERVICER: AOx3. No focal deficits.
A/P:
Acute hypoxic respiratory insufficiency:
Likely related to pneumonia/empyema
Pulmonary consult and follow-up appreciated
Supplemental oxygen as needed
Incentive spirometry
Add guaifenesin
Pseudomonas and or Strep pneumonia/Empyema:
IV Zosyn changed to Cefepime
WBC 20.1
Discontinued vancomycin
Chest tube in place
Pulmonary started him on tPA DNase through chest tube
Plan to repeat CT scan of the chest tomorrow per pulmonary
May need CT surgery eval for VATS if not effective drainage
MRSA negative, influenza negative, COVID-19 negative
Blood cultures no growth
Sputum culture Pseudomonas aeruginosa
Follow-up pleural fluid cultures but so far appears to be growing Streptococcus
ID consult appreciated
Chest pain due to recent trauma/chest tube:
Continue Tylenol, add Toradol as needed for moderate pain and oxycodone for severe pain.
Add bowel regimen
Interstitial lung disease/hypersensitivity pneumonitis:
Follow-up with pulmonary as outpatient
Hypertension:
Continue losartan 50 mg p.o. daily
Hyperlipidemia:
Continue atorvastatin 20 mg p.o. daily
DVT prophylaxis:
Lovenox SQ
CODE STATUS:
Full code
Total time spent on today's encounter was 52 minutes which included time spent in counseling the patient/family regarding diagnosis and treatment plan as listed above, goals of care, and symptom management. Case was discussed with nursing staff,
specialists, and care coordinators/case management. All labs and imaging personally reviewed by me. Remainder the time spent in detailed review of previous records, lab data, imaging, and other medical provider documentation.
Anticipated Discharge: > 48 hours
Subjective/Interval History
-
Date of Service: January 26, 2024
Patient chest pain better overall. Less shortness of breath. Afebrile
Objective Data
-
Labs:
Laboratory Results
01/26/24
03:39
WBC 20.1 H
Hgb 14.1
Hct 42.4
Plt Count 408 H
Sodium 134 L
Potassium 4.5
Chloride 104
Carbon Dioxide 28
BUN 22 H
Creatinine 0.9
Glucose 111 H
Calcium 7.7 L
Vital Signs:
Vital Signs
Temp Pulse Resp BP Pulse Ox
98.4 F 97 14 128/69 94
01/26/24 07:43 01/26/24 07:58 01/26/24 07:11 01/26/24 07:58 01/26/24 09:21
I&O
01/25/24 01/26/24 01/27/24
06:59 06:59 06:59
Intake Total 1790 / 1790 440 / 440
Output Total 1520 / 1520 930 / 930 200 / 200
Balance 270 / 270 -490 / -490 -200 / -200
--- NOTE | 2024-01-26 10:05 | W.PN.PUL3 ---
Today's Communication / Plan
-
Monitor chest tube output in 12 hour intervals
Continue tPA and DNase through chest tube - BID x 3 days - will get instillations #5 and #[address] Chest tomorrow AM.
If no improvement then will need CT surgical eval for VATS with washout of pleural space
If adequate drainage seen on CT chest and chest tube output is <150cc/day with L-lung appears well re-expanded then we can remove chest tube at that point
Continue antibiotics - zosyn changed to cefepime today as per ID; MRSA swab negative
Assessment
-
Impression:
Abnormal CT chest with left-sided pneumonia (mainly in LLL) with multi-loculated effusion due to Streptococcus viridans empyema s/p small-bore chest tube (IR placed-01/22/24)
Hypoxemic respiratory insufficiency
Left-sided pneumonia due to Pseudomonas aeruginosa (riley-sensitive)
Conditions present prior admission:
Hypertension
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
Follow[address] with Dr. Franco-PFTs have been stable over time.
Negative rheumatologic workup.
Chronic cough secondary to above
Chronic rhinitis
Non-smoker.
-
Assessment and plan:
CT scan findings new compared to 2019.
No appreciable endobronchial lesion. Pulmonary mass cannot be ruled out.
Loculated pleural effusion/compressive atelectasis/infiltrate/leukocytosis and fevers at home.
Initially was considering post trauma as pt sustained a fall 2months ago from a ladder --> however based on pleural fluid appearance and characteristics, this is an empyema
Continue antibiotics for community-acquired infection
DuoNebs - ok to lower to BID
Interventional radiology: Chest tube placed on 01/21 --> c/t monitor drainage; cytology negative
Drainage slowed considerably from 01/22 - 01/23 --> on 5/7, started lytic treatments through chest tube with tPA and DNase BID x 3 days - will give lytic treatments #5 and #6 today out of total of 6.
Discussed patient if chest tube with lytics is not effective at clearing the fluid, surgical consultation may be necessary.
Check CT Chest tomorrow AM to assess left lung parenchyma
-
Sputum culture grew pansensitive Pseudomonas aeruginosa
Pleural fluid growing Streptococcus viridans
Zosyn (started 01/22) changed to cefepime today as per ID; s/p 2 days of IV vanco, 4 days of zithromax, and 3 days of rocephin
-
Steroids were discontinued.
Follow fever curve and leukocytosis-
Incentive spirometry
MRSA screen negative and chest tube draining well - IV vanco DC'd
-
History of mild pulmonary fibrosis stable over time-possible hypersensitivity pneumonitis. No evidence of honeycombing on CAT scan.
Patient has exposures to a barn at home.
Pulmonary function testing have been stable.
Follows up with Dr. Franco.
-
Will follow
Subjective Data
-
Date of Service:
Date of Service: January 26, 2024
Chief Complaint: Pulmonary Follow Up (Pleural effusion)
Subjective:
Patient seen and evaluated today at bedside. 330 cc of output from chest tube over the last 24 hours. Abx now changed from Zosyn to cefepime as per ID. Slight improvement in L-sided opacification.
Review of Systems
General: Other (negative unless mentioned above)
Objective Data
Data Reviewed
Vital Signs / I&O / Oxygen:
Vital Signs
Temp Pulse Resp BP Pulse Ox
98.4 F 97 14 128/69 94
01/26/24 07:43 01/26/24 07:58 01/26/24 07:11 01/26/24 07:58 01/26/24 09:21
Intake and Output
01/25/24 01/26/24 01/27/24
06:59 06:59 06:59
Intake Total 1790 / 1790 440 / 440
Output Total 1520 / 1520 930 / 930 200 / 200
Balance 270 / 270 -490 / -490 -200 / -200
SaO2 94
Nasal Cannula flow liters per 2
minute
Physical Exam
General: Respiratory Distress (negative), Comfortable and Chills (negative)
HEENT: Normocephalic and Anicteric
Cardiovascular: S1-S2 and Peripheral Edema (negative)
Respiratory: Wheeze (negative), Crackles (negative), Rhonchi (negative), Accessory Resp Muscle Use (negative), Chest Tube (left-sided chest tube draining purulent fluid) and Other (Inspiratory squeaks heard in LLL)
GI: Soft, Non Distended and Non Tender
Neurology: Awake and Alert
Skin: Warm and Dry
Labs/Micro/Reports
Lab Data
01/26/24 03:39
01/26/24 03:39
Microbiology
01/22/24 12:44 Pleural Fluid Fungal Smear - Final
No yeast or fungal elements seen.
01/22/24 12:44 Pleural Fluid Fungal Culture - Preliminary
Culture in progress.
Positive cultures are reported as soon as detected.
Final report to follow in four to five weeks.
01/22/24 12:44 Pleural Fluid Body Fluid Culture - Final
Viridans Streptococcus Group
01/22/24 12:44 Pleural Fluid Gram Stain - Final
01/20/24 10:06 Blood/Venous Blood Culture - Final
No Growth - Final Report
01/20/24 09:57 Blood/Venous Blood Culture - Final
No Growth - Final Report
01/22/24 12:44 Pleural Fluid Acid Fast Bacilli Smear - Preliminary
01/22/24 12:44 Pleural Fluid Acid Fast Bacilli Culture - Preliminary
01/23/24 18:00 Nose Nasal Screen MRSA (PCR) - Final
MRSA not detected - performed by PCR methodology.
01/20/24 22:23 Sputum Respiratory Culture - Final
Pseudomonas aeruginosa
01/20/24 22:23 Sputum Gram Stain - Final
--- NOTE | 2024-01-26 10:52 | W.SUR.POST ---
Surgical Immediate Post Op
Note
Date of Service: 01/26/2024
Pre Op Diagnosis: Left-sided empyema
Post Op Diagnosis: Same as above
Procedure Performed: tPA 10mg and dornase 5mg instillation into chest tube (instillation #5 of 6)
Primary Surgeon/proceduralist: Dr. Finnegan
Secondary Surgeons: n/a
Anesthesia: n/a
Estimated Blood Loss: n/a
Fluids: 30cc of NS 0.9%
Drains/Shunts: n/a
Specimens/Cultures: n/a
Doppler/Duplex/Angio (Y/N): n/a
Complications: No immediate complications
Operative/Procedure Details: Patient was positioned for adequate access to left-sided chest tube. Three-way stopcock was arranged into off-position towards patient, essentially clamping chest tube. Before procedure started, sterile technique was
utilized with handwashing, facemask, gown and sterile gloves. Chest tube was removed off suction as well. NS 0.9% was instilled into chest tube, and then 10mg alteplase was instilled into the chest tube without resistance. 10cc of 0.9% NS was
instilled, and then 5mg dornase was instilled into the chest tube without resistance. Finally, another 10cc of NS 0.9% was instilled into the chest tube without resistance. The stop cock was turned towards the patient to allow the lytic
medications to remain in pleural space. Alcohol swabs were utilized whenever any medication was attached to the female leur lock end of the 3-way stop-cock. This was to improve sterility. The procedure ended without any complications.
I instructed to the RN to keep chest tube clamped for 2 hours, and then place chest tube back onto negative suction at -[id number], and place stop-cock to neutral position to allow flow of fluid out of pleural space into pleuro-vac container.
--- NOTE | 2024-01-26 10:53 | VNURNOTE ---
Home health liaison met with patient to discuss [facility] services, visit scheduling/frequency, homebound status and pet policy. Patient understands home visits will be 1-2 times a week to assess and teach medical management. Patient aware a visiting
nurse will contact them for start of care within 1-2 days after discharge from . Brochure given with contact information. [facility] Referral completed in care port
[2024-01-26] MEDS: MAXIPIME 2000 MG IV ×2 (10:59→17:38)
[2024-01-26] MEDS: DILAUDID 0.25 MG IV ×2 (11:00→17:56)
[2024-01-26] MEDS: STERILE WATER FOR INJECTION 10 ML IV ×2 (11:00→17:38)
--- NOTE | 2024-01-26 13:00 | PTCARENOTE ---
10mg Alteplase and 5mg Dornase instilled by bandage winding machine operator and clamped at 1050 via three-way stopcock, tube unclamped and set back to suction. Patient without any complaints and tolerating well.
--- NOTE | 2024-01-26 16:09 | CM ---
Patient with Dx Acute hypoxic respiratory insufficiency, pneumonia/empyema. Room air. Chest tube - plan tPA and Dornase installation chest tube today. PT & OT recommend skilled rehab.
Attempted to reach patient's ; voicemail on home # is full and no cell known.
Plan follow up with about change in rehab assessment to confirm plan is still home with [facility].
[2024-01-26] MEDS: LOVENOX 40 MG SC (17:38)
--- NOTE | 2024-01-26 17:38 | W.SUR.POST ---
Surgical Immediate Post Op
Note
tPA/Dornase chest tube instillation procedure
Date of Service: 01/26/2024
Pre Op Diagnosis: Left-sided empyema
Post Op Diagnosis: Same as above
Procedure Performed: tPA 10mg and dornase 5mg instillation into chest tube (instillation #6 of 6)
Primary Surgeon/proceduralist: Dr. Finnegan
Secondary Surgeons: n/a
Anesthesia: n/a
Estimated Blood Loss: n/a
Fluids: 30cc of NS 0.9%
Drains/Shunts: n/a
Specimens/Cultures: n/a
Doppler/Duplex/Angio (Y/N): n/a
Complications: No immediate complications
Operative/Procedure Details: Patient was positioned for adequate access to left-sided chest tube. Three-way stopcock was arranged into off-position towards patient, essentially clamping chest tube. Before procedure started, sterile technique was
utilized with handwashing, facemask, gown and sterile gloves. Chest tube was removed off suction as well. NS 0.9% was instilled into chest tube, and then 10mg alteplase was instilled into the chest tube without resistance. 10cc of 0.9% NS was
instilled, and then 5mg dornase was instilled into the chest tube without resistance. Finally, another 10cc of NS 0.9% was instilled into the chest tube without resistance. The stop cock was turned towards the patient to allow the lytic
medications to remain in pleural space. Alcohol swabs were utilized whenever any medication was attached to the female leur lock end of the 3-way stop-cock. This was to improve sterility. The procedure ended without any complications.
I instructed to the RN to keep chest tube clamped for 2 hours, and then place chest tube back onto negative suction at -[id number], and place stop-cock to neutral position to allow flow of fluid out of pleural space into pleuro-vac container.
--- NOTE | 2024-01-26 17:45 | PTCARENOTE ---
10mg Alteplase and 5mg Dornase instilled by distance education director and clamped at 1745 via three-way stopcock, tube to be unclamped and set back to suction 1944.
[2024-01-26] MEDS: MELATONIN 3 MG PO (20:38)
[2024-01-26] MEDS: ROBITUSSIN DM 5 ML PO (20:38)
[2024-01-26] MEDS: PEPCID 20 MG PO (20:38)
[2024-01-26] MEDS: XALATAN OPHTHALMIC SOLUTION 1 DROP BOTH EYES (23:49)
[2024-01-27] VITALS (12 sets, daily range): BP systolic 106–149; BP diastolic 46–126
[2024-01-27] MEDS: MAXIPIME 2000 MG IV ×3 (02:11→17:16)
[2024-01-27] MEDS: STERILE WATER FOR INJECTION 10 ML IV ×3 (02:11→17:16)
--- NOTE | 2024-01-27 05:12 | PTCARENOTE ---
output from chest tube was 330 fin the last 24 hours-
[2024-01-27 05:51] LABS: Hematocrit 42.5 % (39.0-52.0); Hemoglobin 14.3 g/dL (13.0-18.0); Mean Corp Hgb Conc. 33.6 g/dL (33.0-37.0); Mean Corpuscular Hgb 30.6 pg (27.0-31.0); Mean Platelet Volume 8.8 fL (7.4-10.4); Platelet Count 465 10^3/uL (130-400); Red Blood Cell Count 4.67 10^6/uL (4.70-6.10); Red Cell Dist. Width 13.8 % (11.5-14.5); White Blood Cell Count 16.2 10^3/uL (4.8-10.8)
[2024-01-27 06:11] LABS: Blood Urea Nitrogen 23 mg/dl (9-20); Calcium 8.1 mg/dl (8.4-10.2); Carbon Dioxide 25 mmol/L (22-30); Chloride 105 mmol/L (98-107); Estimated Creatinine Clearance 57 ml/min; Glucose 126 mg/dl (70-99); Potassium 4.8 mmol/L (3.5-5.1); Sodium 136 mmol/L (135-145); eGFR > 60.00
[2024-01-27] MEDS: MUCINEX 600 MG PO ×2 (07:26→20:23)
[2024-01-27] MEDS: COZAAR 50 MG PO (07:26)
[2024-01-27] MEDS: SINGULAIR 10 MG PO (07:26)
[2024-01-27] MEDS: ALPHAGAN 0.2% EYE DROPS 1 DROP BOTH EYES ×2 (07:26→20:23)
[2024-01-27] MEDS: VITAMIN D3 (cholecalciferol) 25 MCG PO (07:26)
[2024-01-27] MEDS: LIPITOR 20 MG PO (07:26)
[2024-01-27] MEDS: ANUSOL HC 25 MG RECTAL (07:26)
[2024-01-27] MEDS: THERAGRAN 1 TABLET PO (07:26)
[2024-01-27] MEDS: DUONEB 3 ML INH ×2 (07:36→20:17)
[2024-01-27] MEDS: MIRALAX PO (07:36)
[2024-01-27] MEDS: TORADOL 15 MG IV ×2 (08:17→22:31)
--- NOTE | 2024-01-27 08:55 | W.PN.HOSP.TC ---
Today's Communication/Plan
-
IV antibiotics. CT scan of the chest.
Assessment / Plan
Assessment / Plan
Physical Exam
General: Acutely ill. No pallor, cyanosis, or jaundice.
HEENT: Throat clear. PERRLA Normocephalic atraumatic
NECK: Supple. No JVD Carotid Bruits
RESPIRATORY: Lungs decreased breath sounds bilateral more pronounced on the left. No crackles wheezes stridor
CVS: S1, S2 normal. RRR. No murmur, rub or gallop.
ABDOMEN: Soft, non-tender. No distension. BS+/normal.
EXTREMITIES: No peripheral cyanosis or edema.
AUTO WASH BUFFER: AOx3. No focal deficits.
A/P:
Acute hypoxic respiratory insufficiency:
Likely related to pneumonia/empyema
Pulmonary consult and follow-up appreciated
Supplemental oxygen as needed
Incentive spirometry
Add guaifenesin
Pseudomonas and viridans strep pneumonia/L Empyema:
On IV cefepime and metronidazole
WBC 16.[address] scan of the chest today per pulmonary
Discontinued vancomycin
Chest tube in place
Pulmonary started him on tPA DNase through chest tube
May need CT surgery eval for VATS if not effective drainage
MRSA negative, influenza negative, COVID-19 negative
Blood cultures no growth
Sputum culture Pseudomonas aeruginosa
Follow-up pleural fluid cultures but so far appears to be growing Streptococcus
ID consult appreciated
Chest pain due to recent trauma/chest tube:
Continue Tylenol, add Toradol as needed for moderate pain and oxycodone for severe pain.
Add bowel regimen
Interstitial lung disease/hypersensitivity pneumonitis:
Follow-up with pulmonary as outpatient
Hypertension:
Continue losartan 50 mg p.o. daily
Hyperlipidemia:
Continue atorvastatin 20 mg p.o. daily
DVT prophylaxis:
Lovenox SQ
CODE STATUS:
Full code
Total time spent on today's encounter was 52 minutes which included time spent in counseling the patient/family regarding diagnosis and treatment plan as listed above, goals of care, and symptom management. Case was discussed with nursing staff,
specialists, and care coordinators/case management. All labs and imaging personally reviewed by me. Remainder the time spent in detailed review of previous records, lab data, imaging, and other medical provider documentation.
Anticipated Discharge: > 48 hours
Subjective/Interval History
-
Date of Service: January 27, 2024
Patient denies new complaints but generalized weakness present. Afebrile
Objective Data
-
Labs:
Laboratory Results
01/27/24
05:26
WBC 16.2 H
Hgb 14.3
Hct 42.5
Plt Count 465 H
Sodium 136
Potassium 4.8
Chloride 105
Carbon Dioxide 25
BUN 23 H
Creatinine 0.8
Glucose 126 H
Calcium 8.1 L
Vital Signs:
Vital Signs
Temp Pulse Resp BP Pulse Ox
98.1 F 81 21 139/62 94
01/27/24 04:35 01/27/24 07:39 01/27/24 07:39 01/27/24 07:26 01/27/24 07:39
I&O
01/26/24 01/27/24 01/28/24
06:59 06:59 06:59
Intake Total 440 / 440 720 / 720
Output Total 930 / 930 995 / 995
Balance -490 / -490 -275 / -275
--- NOTE | 2024-01-27 10:31 | W.PN.ID1 ---
Date of Service
Date of Service: January 27, 2024
Today's Communication
Continue cefepime/metronidazole (day 4 abx)
Assessment / Plan
# Viridans streptococcus left empyema and PNA
# Pseudomonas PNA
# Leukocytosis trending down
- Continue chest tube drainage/ pleurolysis per Pulm
- Continue cefepime/metronidazole (day 4 abx) .
- Follow wbc.
#Additional Past Medical History:
Interstitial lung disease vs hypersensitive pneumonitis with chronic cough
Hypertension
Dyslipidemia
Chief Complaint
-: Pneumonia and Other (empyema)
Subjective / Review of Systems
Feels comfortable at this time.
Vital Signs / Physical Exam
Vital Signs
Vital Signs
Temp Pulse Resp BP Pulse Ox
98.4 F 81 21 139/62 94
01/27/24 07:56 01/27/24 07:39 01/27/24 07:39 01/27/24 07:26 01/27/24 07:39
Physical Exam
Constitutional: No Acute Distress
Pulmonary: Other (Left decreased bs with chest tube in place)
Gastrointestinal: Soft, Non Tender and Non Distended
Neurological: AO x 3
Objective Data
Lab Data
Lab Results
01/27/24 05:26
01/27/24 05:26
Estimated Creat Clear 57 ml/min 01/27/24 05:26
Total Bilirubin 1.1 mg/dl (0.2-1.3) 01/20/24 10:06
AST 31 U/L (17-59) 01/20/24 10:06
ALT 26 U/L (0-50) 01/20/24 10:06
Alkaline Phosphatase 143 U/L (38-126) H 01/20/24 10:06
Most recent labs reviewed.
Micro Results:
05/05/24 12:44 Fungal Smear - Final
Pleural Fluid No yeast or fungal elements seen.
Fungal Culture - Preliminary
Culture in progress.
Positive cultures are reported as soon as detected.
Final report to follow in four to five weeks.
01/22/24 12:44 Body Fluid Culture - Final
Pleural Fluid Viridans Streptococcus Group
Gram Stain - Final
01/20/24 10:06 Blood Culture - Final
Blood/Venous No Growth - Final Report
01/20/24 09:57 Blood Culture - Final
Blood/Venous No Growth - Final Report
01/22/24 12:44 Acid Fast Bacilli Smear - Preliminary
Pleural Fluid Acid Fast Bacilli Culture - Preliminary
01/23/24 18:00 Nasal Screen MRSA (PCR) - Final
Nose MRSA not detected - performed by PCR methodology.
01/20/24 22:23 Respiratory Culture - Final
Sputum Pseudomonas aeruginosa
Gram Stain - Final
01/20/24 14:20 Influenza Types A & B ([facility]) - Final
Nasal Swab Negative for Influenza A & B, NAAT
Negative results must be combined with clinical observations
and patient history.
Nucleic Acid Amplification test (NAAT)performed on the
[employer] platform.
01/24/24 CXR: Mildly improved probably loculated left pleural effusion. Stable left-sided chest tube.
01/21/[address]: Moderate lobulated likely at least partially loculated left pleural effusion seen throughout the left hemithorax with accompanying areas of parenchymal consolidation/atelectasis most prominent in the left lower lobe. Small left
lung mass cannot be entirely excluded on the basis of this study. Please see above comments.
--- NOTE | 2024-01-27 12:06 | CONSULT.CT ---
Consultation
-
Date/Time Consultation Requested: 01/26
Date/Time Consultation Performed: 01/26
Requesting Provider: Dr. Ger Finnegan
Performing Provider: Debo Perales for Dr Christo Benton
Reason for Consultation: evaluate for VATS decortication
Patient History
Physicians
Family Physician: Giacomo Costello
History of Present Illness
83-year-old male with known interstitial lung disease, possible hypersensitivity pneumonitis, chronic cough, was admitted 01/19 with a 2-week history of progressive shortness of breath. Patient was hypoxic requiring 4 L nasal cannula to
maintain O2 sats of 94%. Patient had recent fall from a ladder while cleaning gutters 2 months prior having landed on his left side. He did not seek medical attention at that time. CT of chest completed 01/19 reported moderate lobulated partially
loculated left pleural effusion. Patient received a left pleural chest tube on 01/20 with transient drainage consistent with empyema. Antibiotics with ceftriaxone and azithromycin were initiated and later changed to Zosyn on 01/22 for Step in pleural
fluid. Patient received tPA and dornase via chest tube twice daily x 3 days. 01/25, this visit was changed to cefepime for viridans species of strep. Follow-up CT of chest on 01/26 reported significant interval improvement in left pleural effusion
with multiple loculations. Largest residual loculated fluid collection is present in the apical region of the left hemithorax. CT Surgery consulted to evaluate for VATS with washout vs new IR chest tube. Patient currently resting in bed. NO fever or
leukocytosis.
Past Medical History
Past Medical History: HTN, Hypercholesterolemia, SOB and Other (interstitial lung disease, possible hypersensitivity pneumonitis)
Past Surgical History
Past Surgical History: Cholecystectomy
Family History
Mother: N/A
Father: N/A
Social History
Alcohol: Occasional
Drug: None
Tobacco: Non-Smoker
Personal:
Living: With Spouse
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
Allergies
Allergy/AdvReac Type Severity Reaction Status Date / Time
No Known Allergies Allergy Verified 01/20/24 08:05
Home Medications
�Medication �Instructions �Recorded �Confirmed �Type
atorvastatin 20 mg tablet 20 mg PO DAILY High Cholesterol 01/20/24 01/20/24 History
azelastine 137 mcg (0.1 %) nasal 1 spray intranasal BID Congestion 01/20/24 01/20/24 History
spray aerosol
brimonidine 0.2 % eye drops 1 drp BOTH EYES BID Eye Condition 01/20/24 01/20/24 History
cholecalciferol (vitamin D3) 25 25 mcg PO DAILY Supplement 01/20/24 01/20/24 History
mcg (1,000 unit) tablet
latanoprost 0.005 % eye drops 1 drp BOTH EYES HS Eye Condition 01/20/24 01/20/24 History
losartan 50 mg tablet 50 mg PO DAILY Blood Pressure 01/20/24 01/20/24 History
montelukast 10 mg tablet 10 mg PO DAILY asthma 01/20/24 01/20/24 History
therapeutic multivitamin 1 tab PO DAILY Supplement 01/20/24 01/20/24 History
Review of Systems
-
History Source: Patient
General: Reports No Symptoms
HEENT: Reports No Symptoms
Respiratory: Reports SOB
Cardiac: Reports No Symptoms
Abdomen/GI: Reports No Symptoms
: Reports No Symptoms
Musculoskeletal: Reports No Symptoms
Skin: Reports No Symptoms
Neurological: Reports No Symptoms
Vascular: Reports No Symptoms
Physical Exam
Vital Signs
Temp 98.6 F 01/27/24 11:32
Temp route: Oral 01/27/24 11:32
Pulse 81 01/27/24 07:39
Rhythm: Normal sinus rhythm 01/26/24 20:00
With- Bundle Branch Block Confi 01/26/24 20:00
Resp Rate 21 01/27/24 07:39
Blood pressure 139/62 01/27/24 07:26
Blood pressure extremity used: Right upper arm 01/22/24 12:55
Position: Sitting 01/22/24 12:55
MAP (cuff-Cirilo Monitor) 70 01/27/24 04:00
SaO2 94 01/27/24 07:39
Nasal Cannula flow liters per minute 2 01/23/24 16:34
Oxygen Mode of Delivery Room air 01/27/24 07:39
Flow liters per minute # 2 01/22/24 08:14
Pulse Ox at Rest 94 01/26/24 10:10
Acceptable pain level during hospitalization? 0 01/20/24 08:05
Can the patient verbally communicate their pain? Yes 01/27/24 09:17
Pain scale ratin 01/27/24 09:17
Actual Weight 61.4 kg 01/22/24 13:37
Body Mass Index (BMI) 23.3 01/22/24 13:37
Supine- Blood Pressure 121/50 01/26/24 12:11
Supine- Pulse 102 01/26/24 12:11
Sitting- Blood Pressure 119/64 01/23/24 16:34
Sitting- Pulse 109 01/23/24 16:34
Heart rate after activity 116 01/26/24 12:11
Blood pressure after activity 118/66 01/26/24 12:11
Oxygen Saturation with Activity 94 01/26/24 10:10
Labs
01/27/24 05:26
01/27/24 05:26
Troponin I < 0.012 ng/ml 01/20/24 09:10
Bta-G-Aumtgfytywp Pept 525 pg/ml 01/20/24 09:10
Exam
General: Well Developed, Well Nourished, No Apparent Distress and Good Appetite
HEENT: Normocephalic, Anicteric, Moist Mucous Membranes, Atraumatic and PERRLA
Neck: Trachea Midline
Respiratory: Crackles (lefrt base) and Other (left pleural chest tube to -40cm suction w/milky (in chambers) to serous fluid (in tubing))
Cardiac: S1/S2 and Regular Rhythm
GI: Soft, Non Tender, Non Distended and Normal Bowel Sounds
Rectal: Deferred by Provider
Skin: Warm and Dry
Neuro: AO x 3, No Motor Deficits and Nonfocal/Grossly Intact
Extremities: Lower Level Edema (+trace-+1 B/L ankle)
Lymph: No Lymphadenopathy
Psych: Calm
Assessment / Plan
-
83-year-old male with persistent loculations despite tPA/dornase
-Case reviewed with surgeon recommending IR drain directed into the apical collection. Continue tPA/dornase before attempting surgery. If no improvement by next week, will be consideration for decortication.
Data Reviewed
-
EKG: Report Reviewed by me and Discussed with Physician
Radiology: Report Reviewed by me and Discussed with Physician
CT Scan: Report Reviewed by me and Discussed with Physician
Ultrasound: Report Reviewed by me and Discussed with Physician
Labs: Labs Reviewed by me and Discussed with Physician
[2024-01-27] MEDS: FLAGYL 500 MG PO ×2 (13:04→21:19)
--- NOTE | 2024-01-27 16:20 | W.PN.PUL3 ---
Today's Communication / Plan
-
IR consult for new chest tube into posterior DALLIN loculated effusion --> tpA + dornase should be given into this new DALLIN chest tube x 6 sessions again
He had marked improvement of his left basilar loculated effusion with tpa + dornase over 6 sessions (01/23 - 01/25)
Monitor chest tube output in 12 hour intervals
If no improvement then will need CT surgical eval for VATS with washout of pleural space
Continue antibiotics - zosyn changed to cefepime on 01/25 as per ID; MRSA swab negative
Assessment
-
Impression:
Abnormal CT chest with left-sided pneumonia (mainly in LLL) with multi-loculated effusion due to Streptococcus viridans empyema s/p small-bore chest tube (IR placed-01/22/24)
Hypoxemic respiratory insufficiency
Left-sided pneumonia due to Pseudomonas aeruginosa (riley-sensitive)
Conditions present prior admission:
Hypertension
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
Follow[address] with Dr. Franco-PFTs have been stable over time.
Negative rheumatologic workup.
Chronic cough secondary to above
Chronic rhinitis
Non-smoker.
-
Assessment and plan:
CT scan findings from 01/21/2024 new compared to 2019.
No appreciable endobronchial lesion. Pulmonary mass cannot be ruled out.
Loculated pleural effusion/compressive atelectasis/infiltrate/leukocytosis and fevers at home.
Initially was considering post trauma as pt sustained a fall 2months ago from a ladder --> however based on pleural fluid appearance and characteristics, this is an empyema
Continue antibiotics for community-acquired infection
DuoNebs BID
Interventional radiology: Chest tube placed on 01/21 --> c/t monitor drainage; cytology negative
Drainage slowed considerably from 01/22 - 01/23 --> on 01/23, started lytic treatments through chest tube with tPA and DNase BID x 3 days from 01/23 - 01/25 leading to significant interval improvement in the left basilar loculated effusion
He still has a DALLIN loculated collection --> CT Surgery consulted to eval for VATS with washout +/- decortication --> they rec'd IR chest tube insertion into posterior DALLIN-loculated collection. If pt still has persistence of loculated effusions +/-
hydropneumothorax, then they will consider surgery.
-
Sputum culture grew pansensitive Pseudomonas aeruginosa
Pleural fluid growing Streptococcus viridans
Zosyn (started 01/22) changed to cefepime on 01/25 as per ID; s/p 2 days of IV vanco, 4 days of zithromax, and 3 days of rocephin
-
Steroids were discontinued.
Follow fever curve and leukocytosis-
Incentive spirometry
MRSA screen negative and chest tube draining well - IV vanco DC'd
-
History of mild pulmonary fibrosis stable over time-possible hypersensitivity pneumonitis. No evidence of honeycombing on CAT scan.
Patient has exposures to a barn at home.
Pulmonary function testing have been stable.
Follows up with Dr. Franco.
-
Will follow
Total time spent today was 35 minutes for this encounter. Time includes reviewing laboratory test/imaging results, reviewing pertinent medical records, obtaining and reviewing medical history, performing an appropriate exam, ordering medications,
tests and procedures. Time also includes documentation of this encounter, coordinating patient care and communicating with other healthcare professionals. Total time does not include separately billed tests performed on this date of service.
Subjective Data
-
Date of Service:
Date of Service: January 27, 2024
Chief Complaint: Pulmonary Follow Up (Pleural effusion)
Subjective:
Patient seen today at bedside. 495 cc output from chest tube over last 24 hours. Currently on room air saturating 95%. BP 147/72, heart rate 86. He denies any chest pain, headache, fevers or chills. Still has occasional discomfort where the
chest tube is located.
Review of Systems
General: Other (Negative unless mentioned above)
Objective Data
Data Reviewed
Vital Signs / I&O / Oxygen:
Vital Signs
Temp Pulse Resp BP Pulse Ox
98.8 F 81 21 139/62 94
01/27/24 15:45 01/27/24 07:39 01/27/24 07:39 01/27/24 07:26 01/27/24 07:39
Intake and Output
01/26/24 01/27/24 01/28/24
06:59 06:59 06:59
Intake Total 440 / 440 720 / 720
Output Total 930 / 930 995 / 995 350 / 350
Balance -490 / -490 -275 / -275 -350 / -350
SaO2 94
Nasal Cannula flow liters per 2
minute
Physical Exam
General: Respiratory Distress (negative), Comfortable and Chills (negative)
HEENT: Normocephalic and Anicteric
Cardiovascular: S1-S2 and Peripheral Edema (negative)
Respiratory: Wheeze (negative), Crackles (negative), Rhonchi (negative), Accessory Resp Muscle Use (negative), Chest Tube (left-sided chest tube) and Other (Inspiratory squeaks heard in LLL)
GI: Soft, Non Distended and Non Tender
Neurology: Awake and Alert
Skin: Warm and Dry
Labs/Micro/Reports
Lab Data
01/27/24 05:26
01/27/24 05:26
Microbiology
01/22/24 12:44 Pleural Fluid Fungal Smear - Final
No yeast or fungal elements seen.
01/22/24 12:44 Pleural Fluid Fungal Culture - Preliminary
Culture in progress.
Positive cultures are reported as soon as detected.
Final report to follow in four to five weeks.
01/22/24 12:44 Pleural Fluid Body Fluid Culture - Final
Viridans Streptococcus Group
01/22/24 12:44 Pleural Fluid Gram Stain - Final
01/20/24 10:06 Blood/Venous Blood Culture - Final
No Growth - Final Report
01/20/24 09:57 Blood/Venous Blood Culture - Final
No Growth - Final Report
01/22/24 12:44 Pleural Fluid Acid Fast Bacilli Smear - Preliminary
01/22/24 12:44 Pleural Fluid Acid Fast Bacilli Culture - Preliminary
--- NOTE | 2024-01-27 16:57 | CM ---
Patient with Dx Acute hypoxic respiratory insufficiency, pneumonia/empyema. Room air. Chest tube - plan continue chest tube drainage/ pleurolysis. PT & OT recommend skilled rehab.
Spoke with patient's Alma Delia; discussed short term rehab and would like to discuss with her . Their house has a lot of stairs and she would like to consider SNF. 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
few facilities in [place]. Discussed local SNFs and provided NH ratings.
Plan follow up with for SNF preferences.
[2024-01-27] MEDS: LOVENOX 40 MG SC (17:16)
[2024-01-27] MEDS: ANUSOL HC RECTAL (20:22)
[2024-01-27] MEDS: PEPCID 20 MG PO (21:19)
[2024-01-27] MEDS: XALATAN OPHTHALMIC SOLUTION 1 DROP BOTH EYES (21:19)
[2024-01-27] MEDS: MELATONIN 3 MG PO (21:19)
[2024-01-28] VITALS (19 sets, daily range): BP systolic 86–149; BP diastolic 57–80
[2024-01-28] MEDS: MAXIPIME 2000 MG IV ×3 (01:23→17:26)
[2024-01-28] MEDS: ROXICODONE 5 MG PO (01:23)
[2024-01-28] MEDS: STERILE WATER FOR INJECTION 10 ML IV ×3 (01:23→17:26)
[2024-01-28] MEDS: FLAGYL 500 MG PO ×3 (05:42→22:03)
[2024-01-28 05:55] LABS: % Basophils 0.3 % (0-2); % Eosinophils 2.3 % (0-6); % Immature Granulocytes 0.8 % (0-0.5); % Lymphocytes 8.8 % (20.5-51.1); % Monocytes 6.8 % (1.7-9.3); Absolute Eosinophils 0.3 10^3/uL (0-0.7); Absolute Immature Granulocytes 0.1 10^3/uL (0-0.05); Absolute Lymphocytes 1.2 10^3/uL (1.2-3.4); Absolute Monocytes 0.9 10^3/uL (0.1-0.6); Absolute Neutrophils 10.7 10^3/uL (1.4-6.5); Hematocrit 38.8 % (39.0-52.0); Hemoglobin 12.8 g/dL (13.0-18.0); Mean Corpuscular Hgb 30.3 pg (27.0-31.0); Mean Corpuscular Volume 91.9 fL (80.0-94.0); Mean Platelet Volume 8.6 fL (7.4-10.4); Nucleated Red Blood Cells % 0 % (-); Platelet Count 380 10^3/uL (130-400); Red Blood Cell Count 4.22 10^6/uL (4.70-6.10); Red Cell Dist. Width 13.5 % (11.5-14.5); White Blood Cell Count 13.2 10^3/uL (4.8-10.8)
[2024-01-28 06:26] LABS: Blood Urea Nitrogen 25 mg/dl (9-20); Calcium 7.7 mg/dl (8.4-10.2); Carbon Dioxide 26 mmol/L (22-30); Chloride 108 mmol/L (98-107); Estimated Creatinine Clearance 57 ml/min; Glucose 96 mg/dl (70-99); Potassium 4.2 mmol/L (3.5-5.1); Sodium 135 mmol/L (135-145); eGFR > 60.00
[2024-01-28] MEDS: DUONEB 3 ML INH (07:24)
[2024-01-28] MEDS: ANUSOL HC RECTAL (08:52)
[2024-01-28] MEDS: COZAAR 50 MG PO (08:52)
[2024-01-28] MEDS: MUCINEX 600 MG PO ×2 (08:52→19:58)
[2024-01-28] MEDS: MIRALAX PO (08:52)
[2024-01-28] MEDS: LIPITOR 20 MG PO (08:52)
[2024-01-28] MEDS: THERAGRAN 1 TABLET PO (08:52)
[2024-01-28] MEDS: VITAMIN D3 (cholecalciferol) 25 MCG PO (08:52)
[2024-01-28] MEDS: SINGULAIR 10 MG PO (08:52)
[2024-01-28] MEDS: ALPHAGAN 0.2% EYE DROPS 1 DROP BOTH EYES ×2 (08:52→20:01)
--- NOTE | 2024-01-28 09:00 | PTCARENOTE ---
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 Patient resting comfortably in bed. AAO, VSS. No events noted over night. No complaints of pain this AM. Chest tube in place on left side, minimal drainage overnight. Dressing CDI. Continues to be set to
wall suction -[id number]. Plan to get second chest tube placed this AM. Call marin in reach.
--- NOTE | 2024-01-28 09:03 | W.PN.HOSP.TC ---
Today's Communication/Plan
-
Continue IV antibiotics. Plan for IR new chest tube today.
Assessment / Plan
Assessment / Plan
Physical Exam
General: Acutely ill. No pallor, cyanosis, or jaundice.
HEENT: Throat clear. PERRLA Normocephalic atraumatic
NECK: Supple. No JVD Carotid Bruits
RESPIRATORY: Lungs decreased breath sounds bilateral more pronounced on the left. No crackles wheezes stridor
CVS: S1, S2 normal. RRR. No murmur, rub or gallop.
ABDOMEN: Soft, non-tender. No distension. BS+/normal.
EXTREMITIES: No peripheral cyanosis or edema.
GIS SPECIALIST: AOx3. No focal deficits.
A/P:
Acute hypoxic respiratory insufficiency:
Likely related to pneumonia/empyema
Pulmonary consult and follow-up appreciated
Pulmonary requested CT surgery eval. CT surgery appreciated input and recommended to repeat drainage by IR on apical area and tPA/dornase and upper drain.
Chest tubes by IR
Supplemental oxygen as needed
Incentive spirometry
Add guaifenesin
Called over the phone today on 01/27
Pseudomonas and viridans strep pneumonia/L Empyema:
On IV cefepime and metronidazole
Pulmonary requested CT surgery eval. CT surgery appreciated input and recommended to repeat drainage by IR on apical area and tPA/dornase and upper drain.
Plan for IR repeat chest tube today
WBC 13.[address] of the chest yesterday.
Discontinued vancomycin
Chest tube in place on basilar area
MRSA negative, influenza negative, COVID-19 negative
Blood cultures no growth
Sputum culture Pseudomonas aeruginosa
Pleural fluid cultures growing Viridans Streptococcus
ID consult appreciated
Chest pain due to recent trauma/chest tube:
Continue Tylenol, add Toradol as needed for moderate pain and oxycodone for severe pain.
Add bowel regimen
Interstitial lung disease/hypersensitivity pneumonitis:
Follow-up with pulmonary as outpatient
Hypertension:
Continue losartan 50 mg p.o. daily
Hyperlipidemia:
Continue atorvastatin 20 mg p.o. daily
DVT prophylaxis:
Lovenox SQ
CODE STATUS:
Full code
Total time spent on today's encounter was 52 minutes which included time spent in counseling the patient/family regarding diagnosis and treatment plan as listed above, goals of care, and symptom management. Case was discussed with nursing staff,
specialists, and care coordinators/case management. All labs and imaging personally reviewed by me. Remainder the time spent in detailed review of previous records, lab data, imaging, and other medical provider documentation.
Anticipated Discharge: > 48 hours
Subjective/Interval History
-
Date of Service: January 28, 2024
Patient with generalized weakness. Less cough and shortness of breath. Afebrile
Objective Data
-
Labs:
Laboratory Results
01/28/24
05:33
WBC 13.2 H
Hgb 12.8 L
Hct 38.8 L
Plt Count 380
Sodium 135
Potassium 4.2
Chloride 108 H
Carbon Dioxide 26
BUN 25 H
Creatinine 0.8
Glucose 96
Calcium 7.7 L
Vital Signs:
Vital Signs
Temp Pulse Resp BP Pulse Ox
98.2 F 96 13 148/66 94
01/28/24 07:48 01/28/24 08:52 01/28/24 07:26 01/28/24 08:52 01/28/24 07:26
I&O
01/27/24 01/28/24 01/29/24
06:59 06:59 06:59
Intake Total 720 / 720 440 / 440
Output Total 995 / 995 750 / 750
Balance -275 / -275 -310 / -310
--- NOTE | 2024-01-28 09:15 | W.PN.ID1 ---
Date of Service
Date of Service: January 28, 2024
Today's Communication
Continue antibiotics
Assessment / Plan
# Viridans streptococcus left empyema and PNA
# Pseudomonas PNA
# Leukocytosis trending down
- Continue chest tube drainage/ pleurolysis per Pulm
- Continue cefepime/metronidazole (day#6 abx) .
- Follow wbc.
#Additional Past Medical History:
Interstitial lung disease vs hypersensitive pneumonitis with chronic cough
Hypertension
Dyslipidemia
Chief Complaint
-: Pneumonia and Other (Left empyema)
Subjective / Review of Systems
Review of Systems: No Fever and No Chills
Vital Signs / Physical Exam
Vital Signs
Vital Signs
Temp Pulse Resp BP Pulse Ox
98.2 F 96 13 148/66 94
01/28/24 07:48 01/28/24 08:52 01/28/24 07:26 01/28/24 08:52 01/28/24 07:26
Physical Exam
Constitutional: No Acute Distress, Comfortable and Non-toxic
Eyes: Sclera Anicteric
Cardiovascular: S1/S2; Negative S3/S4
Pulmonary: Non Labored and Other (left CT in place)
Gastrointestinal: Soft, Non Tender and Non Distended
Neurological: Awake and Alert
Psychological: Calm
Objective Data
Lab Data
Lab Results
01/28/24 05:33
01/28/24 05:33
Estimated Creat Clear 57 ml/min 01/28/24 05:33
Total Bilirubin 1.1 mg/dl (0.2-1.3) 01/20/24 10:06
AST 31 U/L (17-59) 01/20/24 10:06
ALT 26 U/L (0-50) 01/20/24 10:06
Alkaline Phosphatase 143 U/L (38-126) H 01/20/24 10:06
Most recent labs reviewed.
Micro Results:
01/22/24 12:44 Fungal Smear - Final
Pleural Fluid No yeast or fungal elements seen.
Fungal Culture - Preliminary
Culture in progress.
Positive cultures are reported as soon as detected.
Final report to follow in four to five weeks.
01/22/24 12:44 Body Fluid Culture - Final
Pleural Fluid Viridans Streptococcus Group
Gram Stain - Final
01/20/24 10:06 Blood Culture - Final
Blood/Venous No Growth - Final Report
01/20/24 09:57 Blood Culture - Final
Blood/Venous No Growth - Final Report
01/22/24 12:44 Acid Fast Bacilli Smear - Preliminary
Pleural Fluid Acid Fast Bacilli Culture - Preliminary
01/23/24 18:00 Nasal Screen MRSA (PCR) - Final
Nose MRSA not detected - performed by PCR methodology.
01/20/24 22:23 Respiratory Culture - Final
Sputum Pseudomonas aeruginosa
Cefepime <=2 S
Ceftazidime <=1 S
Ciprofloxacin <=0.25 S
Gentamicin <=4 S
Levofloxacin <=0.5 S
Meropenem <=1 S
Piperacillin/Tazobactam <=16 S
Tobramycin <=4 S
01/20/24 14:20 Influenza Types A & B ([facility]AM) - Final
Nasal Swab Negative for Influenza A & B, NAAT
Negative results must be combined with clinical observations
and patient history.
Nucleic Acid Amplification test (NAAT)performed on the
Cantimer platform.
01/24/24 CXR: Mildly improved probably loculated left pleural effusion. Stable left-sided chest tube.
01/21/[address]: Moderate lobulated likely at least partially loculated left pleural effusion seen throughout the left hemithorax with accompanying areas of parenchymal consolidation/atelectasis most prominent in the left lower lobe. Small left
lung mass cannot be entirely excluded on the basis of this study. Please see above comments.
--- NOTE | 2024-01-28 11:26 | W.PN.UPDATE ---
Update Note
Progress Note Update
- 10F posterior/apical L chest tube placed
- Bloody serosanguineous fluid obtained. Given the bloody output and fresh placement, did not proceed with pleural lysis of this tube immediately
--- NOTE | 2024-01-28 14:05 | W.PN.PUL3 ---
Today's Communication / Plan
-
Left apical chest tube placed, 20 cc bloody drainage
Follow radiographically
Consider intrapleural lytic therapy and left apical tube as clinically indicated
Continue with antibiotics
Daily chest x-ray
Assessment
-
Impression:
Abnormal CT chest with left-sided pneumonia (mainly in LLL) with multi-loculated effusion due to Streptococcus viridans empyema s/p small-bore chest tube (IR placed-01/22/24)
Hypoxemic respiratory insufficiency
Left-sided pneumonia due to Pseudomonas aeruginosa (riley-sensitive)
Increased left apical loculated fluid collection
Status post chest tube placement 01/27
Conditions present prior admission:
Hypertension
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 with Dr[address] Franco-PFTs have been stable over time.
Negative rheumatologic workup.
Chronic cough secondary to above
Chronic rhinitis
Non-smoker.
-
Assessment and plan:
At this time, patient appears to be comfortable
Second chest tube placed, 20 cc of bloody drainage removed, 10 Moldovan tube placed
Did not pursue intrapleural lytic therapy given bloody nature
Moving forward
Continue antibiotics for community-acquired infection
DuoNebs BID
Interventional radiology: Chest tube placed on 01/21 --> c/t monitor drainage; cytology negative
Drainage slowed considerably from 01/22 - 01/23 --> on 01/23, started lytic treatments through chest tube with tPA and DNase BID x 3 days from 01/23 - 01/25 leading to significant interval improvement in the left basilar loculated effusion
He still has a DALLIN loculated collection --> status post 10 Moldovan chest tube placed 01/27, 20 cc of bloody fluid drained
Initial sputum culture grew pansensitive Pseudomonas aeruginosa
Pleural fluid growing Streptococcus viridans
Zosyn (started 01/22) changed to cefepime on 01/25 as per ID; s/p 2 days of IV vanco, 4 days of zithromax, and 3 days of rocephin
Steroids were discontinued.
Follow fever curve and leukocytosis-
Incentive spirometry
MRSA screen negative and chest tube draining well - IV vanco DC'd
History of mild pulmonary fibrosis stable over time-possible hypersensitivity pneumonitis. No evidence of honeycombing on CAT scan.
Patient has exposures to a barn at home.
Pulmonary function testing have been stable.
Follows up with Dr. Franco.
Will follow
Subjective Data
-
Date of Service:
Date of Service: January 28, 2024
Chief Complaint: Pulmonary Follow Up (Pleural effusion)
Subjective:
Patient seen and examined earlier this morning. Late entry. Patient is feeling well. Chest tube in place, drain 150 cc. Patient denies nausea, abdominal pain. Awaiting left apical chest tube later today
Objective Data
Data Reviewed
Vital Signs / I&O / Oxygen:
Vital Signs
Temp Pulse Resp BP Pulse Ox
98.7 F 86 19 131/64 94
01/28/24 12:13 01/28/24 11:36 01/28/24 11:36 01/28/24 11:36 01/28/24 11:36
Intake and Output
01/27/24 01/28/24 01/29/24
06:59 06:59 06:59
Intake Total 720 / 720 440 / 440
Output Total 995 / 995 750 / 750 150 / 150
Balance -275 / -275 -310 / -310 -150 / -150
SaO2 94
Nasal Cannula flow liters per 2
minute
Physical Exam
General: Comfortable
HEENT: Normocephalic and Anicteric
Cardiovascular: S1-S2, Regular Rhythm, Murmur (n) and Peripheral Edema (negative)
Respiratory: Wheeze (negative), Crackles (negative), Rhonchi (negative), Non-Labored Respirations, Stridor (n), Chest Tube (left-sided chest tube) and Other (Inspiratory squeaks heard in LLL)
GI: Soft, Non Distended and Non Tender
Neurology: Awake, Alert and No Motor Deficits (Moves all extremities)
Skin: Warm, Dry, Cyanosis (n), Jaundice (n) and Rash (n)
Labs/Micro/Reports
Lab Data
01/28/24 05:33
01/28/24 05:33
Microbiology
01/22/24 12:44 Pleural Fluid Fungal Smear - Final
No yeast or fungal elements seen.
01/22/24 12:44 Pleural Fluid Fungal Culture - Preliminary
Culture in progress.
Positive cultures are reported as soon as detected.
Final report to follow in four to five weeks.
01/22/24 12:44 Pleural Fluid Body Fluid Culture - Final
Viridans Streptococcus Group
01/22/24 12:44 Pleural Fluid Gram Stain - Final
01/20/24 10:06 Blood/Venous Blood Culture - Final
No Growth - Final Report
[2024-01-28] MEDS: TORADOL 15 MG IV ×2 (14:06→22:11)
[2024-01-28] MEDS: LOVENOX 40 MG SC (17:26)
--- NOTE | 2024-01-28 18:07 | PTCARENOTE ---
Pt returned from IR with new Left upper posterior chest tube. Pt slid to bed and both chest tubes connected to suction. Left pleural tube set to -40 and new Left upper posterior tube (10 setswana) set to -[address] as [address] New CT with ~ 100 ml's of
serosanguineous drainage. No drainage from left pleural chest tube after box exchange at 1300. Will continue to monitor and assess.
[2024-01-28] MEDS: ANUSOL HC 25 MG RECTAL (19:58)
[2024-01-28] MEDS: XALATAN OPHTHALMIC SOLUTION 1 DROP BOTH EYES (20:00)
--- NOTE | 2024-01-28 20:26 | PTCARENOTE ---
Patient recived from day shift RN. Pt AAO, makes needs known. Pt satting 95% on RA. Pt had moderate seized soft BM at start of shift. Pt stood and pivoted to BSC with assistance of RN. Pt took Pm pills with water. Pt with two left sided chest tubes.
Dressings clean dry and intact. No crepitus, bubbling, or tidaling. Left upper posterior to -20 suction, left lower pleural to -40. Call marin in reach, see nursing shift assessment for head to toe.
[2024-01-28] MEDS: MELATONIN 3 MG PO (22:03)
[2024-01-28] MEDS: PEPCID 20 MG PO (22:03)
[2024-01-29] VITALS (14 sets, daily range): BP systolic 122–144; BP diastolic 56–79; PULSE 77
[2024-01-29] MEDS: STERILE WATER FOR INJECTION 10 ML IV ×3 (02:09→17:53)
[2024-01-29] MEDS: ROXICODONE 5 MG PO (02:10)
[2024-01-29] MEDS: MAXIPIME 2000 MG IV ×3 (02:10→17:53)
[2024-01-29] MEDS: FLAGYL 500 MG PO ×3 (05:47→22:48)
[2024-01-29 05:53] LABS: % Basophils 0.3 % (0-2); % Eosinophils 1.8 % (0-6); % Immature Granulocytes 0.7 % (0-0.5); % Lymphocytes 9.3 % (20.5-51.1); % Monocytes 6.8 % (1.7-9.3); % Neutrophils 81.1 % (42.2-75.2); Absolute Eosinophils 0.2 10^3/uL (0-0.7); Absolute Immature Granulocytes 0.1 10^3/uL (0-0.05); Absolute Lymphocytes 1.1 10^3/uL (1.2-3.4); Absolute Monocytes 0.8 10^3/uL (0.1-0.6); Absolute Neutrophils 9.3 10^3/uL (1.4-6.5); Hematocrit 36.7 % (39.0-52.0); Hemoglobin 11.9 g/dL (13.0-18.0); Mean Corp Hgb Conc. 32.4 g/dL (33.0-37.0); Mean Corpuscular Volume 92.4 fL (80.0-94.0); Mean Platelet Volume 8.8 fL (7.4-10.4); Nucleated Red Blood Cells % 0 % (-); Platelet Count 396 10^3/uL (130-400); Red Blood Cell Count 3.97 10^6/uL (4.70-6.10); Red Cell Dist. Width 13.5 % (11.5-14.5); White Blood Cell Count 11.4 10^3/uL (4.8-10.8)
[2024-01-29 06:13] LABS: Blood Urea Nitrogen 28 mg/dl (9-20); Calcium 7.9 mg/dl (8.4-10.2); Carbon Dioxide 25 mmol/L (22-30); Chloride 109 mmol/L (98-107); Estimated Creatinine Clearance 65 ml/min; Glucose 92 mg/dl (70-99); Potassium 4.3 mmol/L (3.5-5.1); Sodium 138 mmol/L (135-145); eGFR > 60.00
[2024-01-29] MEDS: MIRALAX 17 GRAMS PO (07:25)
[2024-01-29] MEDS: MUCINEX 600 MG PO ×2 (07:26→20:21)
[2024-01-29] MEDS: SINGULAIR 10 MG PO (07:26)
[2024-01-29] MEDS: THERAGRAN 1 TABLET PO (07:26)
[2024-01-29] MEDS: ALPHAGAN 0.2% EYE DROPS 1 DROP BOTH EYES ×2 (07:26→20:20)
[2024-01-29] MEDS: COZAAR 50 MG PO (07:26)
[2024-01-29] MEDS: LIPITOR 20 MG PO (07:26)
[2024-01-29] MEDS: VITAMIN D3 (cholecalciferol) 25 MCG PO (07:26)
[2024-01-29] MEDS: ANUSOL HC RECTAL ×2 (07:27→20:21)
--- NOTE | 2024-01-29 09:29 | W.PN.ID1 ---
Date of Service
Date of Service: January 29, 2024
Today's Communication
Continue antibiotics.
Assessment / Plan
# Viridans streptococcus left empyema and PNA
# Pseudomonas PNA
# Leukocytosis trending down
- Continue chest tube drainage/ pleurolysis per Pulm
- Follow CT output
- Continue cefepime/metronidazole (day#7 abx) .
- Follow wbc.
#Additional Past Medical History:
Interstitial lung disease vs hypersensitive pneumonitis with chronic cough
Hypertension
Dyslipidemia
Chief Complaint
-: Pneumonia and Other (Left empyema)
Subjective / Review of Systems
Patient seen and examined. Reports additional chest tube placed since yesterday's exam.
Review of Systems: No Fever and No Chills
Vital Signs / Physical Exam
Vital Signs
Vital Signs
Temp Pulse Resp BP Pulse Ox
98.4 F 79 13 127/73 94
01/29/24 04:04 01/29/24 07:26 01/29/24 04:00 01/29/24 07:26 01/29/24 04:00
Physical Exam
Constitutional: No Acute Distress, Comfortable and Non-toxic
Eyes: No Conjunctival Hemorrhage and Sclera Anicteric
Cardiovascular: Regular Rate
Pulmonary: Non Labored and Other (CTx2)
Gastrointestinal: Non Distended
Neurological: Awake and Alert
Psychological: Calm
Objective Data
Lab Data
Lab Results
01/29/24 05:18
01/29/24 05:18
Estimated Creat Clear 65 ml/min 01/29/24 05:18
Total Bilirubin 1.1 mg/dl (0.2-1.3) 01/20/24 10:06
AST 31 U/L (17-59) 01/20/24 10:06
ALT 26 U/L (0-50) 01/20/24 10:06
Alkaline Phosphatase 143 U/L (38-126) H 01/20/24 10:06
Most recent labs reviewed.
Micro Results:
01/22/24 12:44 Fungal Smear - Final
Pleural Fluid No yeast or fungal elements seen.
Fungal Culture - Preliminary
Culture in progress.
Positive cultures are reported as soon as detected.
Final report to follow in four to five weeks.
01/22/24 12:44 Body Fluid Culture - Final
Pleural Fluid Viridans Streptococcus Group
Gram Stain - Final
01/20/24 10:06 Blood Culture - Final
Blood/Venous No Growth - Final Report
01/20/24 09:57 Blood Culture - Final
Blood/Venous No Growth - Final Report
01/22/24 12:44 Acid Fast Bacilli Smear - Preliminary
Pleural Fluid Acid Fast Bacilli Culture - Preliminary
01/23/24 18:00 Nasal Screen MRSA (PCR) - Final
Nose MRSA not detected - performed by PCR methodology.
01/20/24 22:23 Respiratory Culture - Final
Sputum Pseudomonas aeruginosa
Gram Stain - Final
01/20/24 14:20 Influenza Types A & B (HESHAM) - Final
Nasal Swab Negative for Influenza A & B, NAAT
Negative results must be combined with clinical observations
and patient history.
Nucleic Acid Amplification test (NAAT)performed on the
[employer] platform.
01/24/24 CXR: Mildly improved probably loculated left pleural effusion. Stable left-sided chest tube.
01/21/[address]: Moderate lobulated likely at least partially loculated left pleural effusion seen throughout the left hemithorax with accompanying areas of parenchymal consolidation/atelectasis most prominent in the left lower lobe. Small left
lung mass cannot be entirely excluded on the basis of this study. Please see above comments.
--- NOTE | 2024-01-29 10:38 | PTCARENOTE ---
Assumed care of Pt at shift change; Left Chest tubes x 2 intact; No drainage noted in left pleural and small amount of serosanguineous drainage in left upper posterior tube. Denies pain at this time. OOB to BSC, large BM. Pt upset this morning -
reported getting a phone call from his stating that she received a message from a CM claiming that the Pt has to leave the hospital today. Confirmed with CM that this is NOT the case and that there is no discharge date yet. CM will start
looking for short term rehabs on Tuesday. Informed Pt of this, pleased with this info. Will continue to monitor and assess.
--- NOTE | 2024-01-29 10:41 | W.PN.HOSP.TC ---
Today's Communication/Plan
-
Continue chest tube care. Continue IV antibiotics. PT OT.
Assessment / Plan
Assessment / Plan
Physical Exam
General: Acutely ill. No pallor, cyanosis, or jaundice.
HEENT: Throat clear. PERRLA Normocephalic atraumatic
NECK: Supple. No JVD Carotid Bruits
RESPIRATORY: Lungs decreased breath sounds bilateral more pronounced on the left. No crackles wheezes stridor
CVS: S1, S2 normal. RRR. No murmur, rub or gallop.
ABDOMEN: Soft, non-tender. No distension. BS+/normal.
EXTREMITIES: No peripheral cyanosis or edema.
LABORER PIE BAKERY: AOx3. No focal deficits.
A/P:
Acute hypoxic respiratory insufficiency:
Likely related to pneumonia/empyema
Pulmonary consult and follow-up appreciated
Pulmonary requested CT surgery eval. CT surgery appreciated input and recommended to repeat drainage by IR on apical area and tPA/dornase on upper drain.
Chest tubes by IR
Supplemental oxygen as needed
Incentive spirometry
Added guaifenesin
Called over the phone yesterday.
Pseudomonas and viridans strep pneumonia/L Empyema:
On IV cefepime and metronidazole
Pulmonary requested CT surgery eval. CT surgery appreciated input and recommended to repeat drainage by IR on apical area and tPA/dornase and upper drain.
S/P IR repeated chest tube yesterday
WBC trending down, today 11.[address] of the chest.
Discontinued vancomycin
Chest tube in place on basilar area and apical area.
MRSA negative, influenza negative, COVID-19 negative
Blood cultures no growth
Sputum culture Pseudomonas aeruginosa
Pleural fluid cultures growing Viridans Streptococcus
ID consult appreciated
Chest pain due to recent trauma/chest tube:
Continue Tylenol, add Toradol as needed for moderate pain and oxycodone for severe pain.
Add bowel regimen
Interstitial lung disease/hypersensitivity pneumonitis:
Follow-up with pulmonary as outpatient
Hypertension:
Continue losartan 50 mg p.o. daily
Hyperlipidemia:
Continue atorvastatin 20 mg p.o. daily
DVT prophylaxis:
Lovenox SQ
CODE STATUS:
Full code
Total time spent on today's encounter was 52 minutes which included time spent in counseling the patient/family regarding diagnosis and treatment plan as listed above, goals of care, and symptom management. Case was discussed with nursing staff,
specialists, and care coordinators/case management. All labs and imaging personally reviewed by me. Remainder the time spent in detailed review of previous records, lab data, imaging, and other medical provider documentation.
Anticipated Discharge: > 48 hours
Subjective/Interval History
-
Date of Service: January 29, 2024
Patient feels better overall today. Afebrile
Objective Data
-
Labs:
Laboratory Results
01/29/24
05:18
WBC 11.4 H
Hgb 11.9 L
Hct 36.7 L
Plt Count 396
Sodium 138
Potassium 4.3
Chloride 109 H
Carbon Dioxide 25
BUN 28 H
Creatinine 0.7
Glucose 92
Calcium 7.9 L
Vital Signs:
Vital Signs
Temp Pulse Resp BP Pulse Ox
98.4 F 79 13 127/73 94
01/29/24 04:04 01/29/24 07:26 01/29/24 04:00 01/29/24 07:26 01/29/24 04:00
I&O
01/28/24 01/29/24 01/30/24
06:59 06:59 06:59
Intake Total 440 / 440 240 / 240
Output Total 750 / 750 464 / 464
Balance -310 / -310 -224 / -224
--- NOTE | 2024-01-29 13:20 | W.PN.PUL3 ---
Addendum entered and electronically signed by Marzena Douglas MD 01/29/24 13:25:
Attempted to call at patient request to update clinical status. No answer, voice box was full
Original Note:
Today's Communication / Plan
-
Maintain chest tube to suction
Chest x-ray in a.m.
Review films with interventional radiology in a.m.
Continue antibiotics
Assessment
-
Impression:
Abnormal CT chest with left-sided pneumonia (mainly in LLL) with multi-loculated effusion due to Streptococcus viridans empyema
s/p small-bore chest tube (IR placed-01/22/24)
Left-sided pneumonia due to Pseudomonas aeruginosa (riley-sensitive)
Increased left apical loculated fluid collection, s/p CT placement 01/27
Acute hypoxemic respiratory insufficiency, improved
Conditions present prior admission:
Hypertension
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
Follows with Dr. Franco-PFTs have been stable over time.
Negative rheumatologic workup.
Chronic cough secondary to above
Chronic rhinitis
Non-smoker.
Assessment and plan:
At this time, patient appears to be comfortable
Second chest tube placed, 20 cc of bloody drainage removed, 10 Belgian tube placed
Did not pursue intrapleural lytic therapy given bloody nature
Additional 100 cc drained overnight, serosanguineous
Moving forward
Continue antibiotics for community-acquired infection
DuoNebs BID
Interventional radiology: Chest tube placed on 01/21 --> c/t monitor drainage; cytology negative
Drainage slowed considerably from 01/22 - 01/23 --> on 01/23, started lytic treatments through chest tube with tPA and DNase BID x 3 days from 01/23 - 01/25 leading to significant interval improvement in the left basilar loculated effusion
He still has a DALLIN loculated collection --> status post 10 Belgian chest tube placed 01/27, 120 cc drained since, less bloody
Check chest x-ray in a.m. depending on findings, may require intrapleural lytic therapy for apical chest tube
May consider removal of more inferior chest tube
We will determine whether imaging is needed to help with decision-making process, based on clinical and radiographic findings tomorrow
Initial sputum culture grew pansensitive Pseudomonas aeruginosa
Pleural fluid growing Streptococcus viridans
Zosyn (started 01/22) changed to cefepime on 01/25 as per ID; s/p 2 days of IV vanco, 4 days of zithromax, and 3 days of rocephin
Steroids were discontinued.
Follow fever curve and leukocytosis-
Incentive spirometry
MRSA screen negative and chest tube draining well - IV vanco DC'd
History of mild pulmonary fibrosis stable over time-possible hypersensitivity pneumonitis. No evidence of honeycombing on CAT scan.
Patient has exposures to a barn at home.
Pulmonary function testing have been stable.
Follows up with Dr. Franco.
Will follow
Subjective Data
-
Date of Service:
Date of Service: January 29, 2024
Chief Complaint: Pulmonary Follow Up (Pleural effusion)
Subjective:
Patient is feeling well. Examined earlier this morning. Left apical chest tube placed yesterday p.m., about 100 cc of serosanguineous fluid removed since. Initial 20 cc were bloody. More inferior chest tube with no significant drainage.
Objective Data
Data Reviewed
Vital Signs / I&O / Oxygen:
Vital Signs
Temp Pulse Resp BP Pulse Ox
98.4 F 82 20 133/67 95
01/29/24 04:04 01/29/24 12:00 01/29/24 12:00 01/29/24 10:33 01/29/24 08:00
Intake and Output
01/28/24 01/29/24 01/30/24
06:59 06:59 06:59
Intake Total 440 / 440 240 / 240
Output Total 750 / 750 464 / 464
Balance -310 / -310 -224 / -224
SaO2 95
Nasal Cannula flow liters per 2
minute
Physical Exam
General: Comfortable
HEENT: Normocephalic and Anicteric
Cardiovascular: S1-S2, Regular Rhythm, Murmur (n) and Peripheral Edema (negative)
Respiratory: Wheeze (negative), Crackles (negative), Rhonchi (negative), Non-Labored Respirations, Stridor (n), Chest Tube (left-sided chest tube x 2) and Other (Inspiratory squeaks heard in LLL)
GI: Soft, Non Distended and Non Tender
Neurology: Awake, Alert and No Motor Deficits (Moves all extremities)
Skin: Warm, Dry, Cyanosis (n), Jaundice (n) and Rash (n)
Labs/Micro/Reports
Lab Data
01/29/24 05:18
01/29/24 05:18
[2024-01-29] MEDS: LOVENOX 40 MG SC (17:53)
[2024-01-29] MEDS: PEPCID 20 MG PO (20:22)
[2024-01-29] MEDS: XALATAN OPHTHALMIC SOLUTION 1 DROP BOTH EYES (22:48)
[2024-01-29] MEDS: MELATONIN 3 MG PO (22:48)
[2024-01-29] MEDS: TORADOL 15 MG IV (23:09)
[2024-01-30] VITALS (11 sets, daily range): BP systolic 118–150; BP diastolic 52–74
[2024-01-30] MEDS: MAXIPIME 2000 MG IV ×3 (02:25→18:43)
[2024-01-30] MEDS: STERILE WATER FOR INJECTION 10 ML IV ×3 (02:25→18:43)
[2024-01-30] MEDS: ROXICODONE 5 MG PO (02:29)
[2024-01-30] MEDS: FLAGYL 500 MG PO ×3 (05:08→20:32)
[2024-01-30 05:41] LABS: % Basophils 0.4 % (0-2); % Immature Granulocytes 0.8 % (0-0.5); % Lymphocytes 10.2 % (20.5-51.1); % Monocytes 7.8 % (1.7-9.3); % Neutrophils 78.8 % (42.2-75.2); Absolute Basophils 0.1 10^3/uL (0-0.2); Absolute Eosinophils 0.3 10^3/uL (0-0.7); Absolute Immature Granulocytes 0.1 10^3/uL (0-0.05); Absolute Lymphocytes 1.3 10^3/uL (1.2-3.4); Absolute Neutrophils 9.8 10^3/uL (1.4-6.5); Hematocrit 41.3 % (39.0-52.0); Hemoglobin 13.5 g/dL (13.0-18.0); Mean Corp Hgb Conc. 32.7 g/dL (33.0-37.0); Mean Corpuscular Hgb 30.3 pg (27.0-31.0); Mean Corpuscular Volume 92.8 fL (80.0-94.0); Mean Platelet Volume 8.7 fL (7.4-10.4); Nucleated Red Blood Cells % 0 % (-); Platelet Count 385 10^3/uL (130-400); Red Blood Cell Count 4.45 10^6/uL (4.70-6.10); Red Cell Dist. Width 13.5 % (11.5-14.5); White Blood Cell Count 12.4 10^3/uL (4.8-10.8)
[2024-01-30 05:54] LABS: Blood Urea Nitrogen 28 mg/dl (9-20); Calcium 7.9 mg/dl (8.4-10.2); Carbon Dioxide 28 mmol/L (22-30); Chloride 107 mmol/L (98-107); Estimated Creatinine Clearance 50 ml/min; Glucose 81 mg/dl (70-99); Potassium 4.7 mmol/L (3.5-5.1); Sodium 138 mmol/L (135-145); eGFR > 60.00
--- NOTE | 2024-01-30 05:54 | W.PN.HOSP.TC ---
Today's Communication/Plan
-
cont abx as per ID
chest tube mgmt as per IR pulm
wean O2 supplementation as tolerated
pain control
PT/OT
Assessment / Plan
Assessment / Plan
Physical Exam
General: Acutely ill. No pallor, cyanosis, or jaundice.
HEENT: Throat clear. PERRLA Normocephalic atraumatic
NECK: Supple. No JVD Carotid Bruits
RESPIRATORY: Clear to Auscultation b/l [address]
CVS: S1, S2 normal. RRR. No murmur, rub or gallop.
ABDOMEN: Soft, non-tender. No distension. BS+/normal.
EXTREMITIES: No peripheral cyanosis or edema.
DIESEL TECHNICIAN: Awake Alert Conversant
A/P:
Acute hypoxic respiratory insufficiency:
Likely related to pneumonia/empyema
Pulmonary consult appreciated
Chest tubes by IR
Supplemental oxygen as needed
Incentive spirometry
Mucinex
Pseudomonas and viridans strep pneumonia/L Empyema:
On IV cefepime and metronidazole
CT surgery appreciated input and recommended to repeat drainage by IR on apical area and tPA/dornase and upper drain.
S/P IR apical chest tube placement 01/27
WBC overall trending down, will cont to monitor
Empiric Vancomycin discontinued
Chest tube in place in basilar and apical area.
MRSA negative, influenza negative, COVID-19 negative
Blood cultures no growth
Sputum culture Pseudomonas aeruginosa
Pleural fluid cultures growing Viridans Streptococcus
ID consult appreciated
Chest pain due to recent trauma/chest tube:
Continue Tylenol, Toradol as needed for moderate pain and oxycodone for severe pain.
cont bowel regimen
Interstitial lung disease/hypersensitivity pneumonitis:
Follow-up with pulmonary as outpatient
Hypertension:
Continue losartan 50 mg p.o. daily
Hyperlipidemia:
Continue atorvastatin 20 mg p.o. daily
PT/OT appreciated SNF rehab
DVT prophylaxis:
Lovenox SQ
CODE STATUS:
Full code
discussed with patient, patient's Alma Delia, and patient's son Kwame
as noted in case mgmt note 01/30/24 patient's son Kwame to be primary contact with regards to providing family updates regarding patient.
Total time spent on today's encounter was 58 minutes which included time spent in counseling the patient/family regarding diagnosis and treatment plan as listed above, goals of care, and symptom management. Case was discussed with nursing staff,
specialists, and care coordinators/case management. All labs and imaging personally reviewed by me. Remainder the time spent in detailed review of previous records, lab data, imaging, and other medical provider documentation.
Anticipated Discharge: > 48 hours
Subjective/Interval History
-
Date of Service: January 30, 2024
Seen and examined at bedside in no acute distress sitting up comfortably in bed. Overall reports feeling well though appears weak dehydrated.
Objective Data
-
Labs:
Laboratory Results
01/30/24
05:14
WBC 12.4 H
Hgb 13.5
Hct 41.3
Plt Count 385
Sodium 138
Potassium 4.7
Chloride 107
Carbon Dioxide 28
BUN 28 H
Creatinine 0.9
Glucose 81
Calcium 7.9 L
Vital Signs:
Vital Signs
Temp Pulse Resp BP Pulse Ox
97.8 F 67 14 130/70 96
01/30/24 04:25 01/30/24 04:00 01/30/24 04:00 01/30/24 04:00 01/30/24 02:00
I&O
01/28/24 01/29/24 01/30/24
06:59 06:59 06:59
Intake Total 440 / 440 240 / 240 240 / 240
Output Total 750 / 750 464 / 464
Balance -310 / -310 -224 / -224 229 / 229
--- NOTE | 2024-01-30 08:40 | PTCARENOTE ---
Patient received from night shift manager. Patient resting comfortably in bed. AAO, VSS. No events noted over night. No complaints of pain this AM. Chest tube x2 in place on left side, minimal drainage overnight per night shift manager RN. No crepitus, air
leaks, or tidaling. Dressing CDI. Left lower chest tube continues to be set to wall suction -[id number]. Left upper chest tube set to wall suction -[id number]. Waiting to see is surgical intervention is needed. Call marin in reach.
[2024-01-30] MEDS: VITAMIN D3 (cholecalciferol) 25 MCG PO (09:23)
[2024-01-30] MEDS: LIPITOR 20 MG PO (09:23)
[2024-01-30] MEDS: SINGULAIR 10 MG PO (09:23)
[2024-01-30] MEDS: MIRALAX PO (09:23)
[2024-01-30] MEDS: ALPHAGAN 0.2% EYE DROPS 1 DROP BOTH EYES ×2 (09:23→20:33)
[2024-01-30] MEDS: COZAAR 50 MG PO (09:23)
[2024-01-30] MEDS: THERAGRAN 1 TABLET PO (09:23)
[2024-01-30] MEDS: MUCINEX 600 MG PO ×2 (09:23→20:32)
[2024-01-30] MEDS: ANUSOL HC RECTAL ×2 (09:24→20:27)
--- NOTE | 2024-01-30 09:53 | W.PN.PUL3 ---
Today's Communication / Plan
-
Lytic therapy attempted last week, superior chest tube placed 01/[address] chest CT eval to see if tubes may be discontinued, drainage appears minimal now
Remains on IV Abx, ID following
Will discuss with IR
PT/OT Evals ongoing
Assessment
-
83-year-old who is known to me from the outpatient setting for interstitial lung disease, possible hypersensitivity pneumonitis, chronic cough, who came to the hospital complaining of 2 weeks progressive shortness of breath associated with fevers
and night sweats. Cough was productive of yellow sputum. Denied any hemoptysis. Reports loss of appetite, progressive shortness of breath. Also reports new ankle edema. Of note, patient reports falling off a ladder cleaning gutters. He sustained
significant trauma to the left side. Complains of pain to coughing. On admission patient had leukocytosis. Chest x-ray showed moderate loculated left pleural effusion with consolidation. CT chest showed moderate lobulated/loculated pleural effusion
severe in size with compressive atelectasis, changes new compared to CAT scan from [address] chest with left-sided pneumonia (mainly in LLL) with multi-loculated effusion due to Streptococcus viridans empyema
s/p small-bore chest tube (IR placed-01/22/24)
Left-sided pneumonia due to Pseudomonas aeruginosa (riley-sensitive)
Increased left apical loculated fluid collection, s/p CT placement 01/27
Acute hypoxemic respiratory insufficiency, improved
Conditions present prior admission:
Hypertension
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 with Dr[address] Franco-PFTs have been stable over time.
Negative rheumatologic workup.
Chronic cough secondary to above
Chronic rhinitis
Non-smoker
RAMSES on CPAP
Plan
At this time, patient appears to be comfortable, stable on RA 95%
Second chest tube placed 01/27, 20 cc of bloody drainage removed, 10 Thai tube placed
Did not pursue intrapleural lytic therapy given bloody nature
Additional 100 cc drained overnight, serosanguineous
No further continues drainage overnight on either chest tube
Consideration for CT chest again to evaluate, discuss with IR
Interventional radiology: Chest tube placed on 01/21 --> c/t monitor drainage; cytology negative
Drainage slowed considerably from 01/22 - 01/23 --> on 01/23, started lytic treatments through chest tube with tPA and DNase BID x 3 days from 01/23 - 01/25 leading to significant interval improvement in the left basilar loculated effusion
He still has a DALLIN loculated collection --> status post 10 Thai chest tube placed 01/27, 120 cc drained since, less bloody
CXR this AM appears overall improved
May consider removal of more inferior chest tube
Continue antibiotics for community-acquired infection
Initial sputum culture grew pansensitive Pseudomonas aeruginosa
Pleural fluid growing Streptococcus viridans
Zosyn (started 01/22) changed to cefepime on 01/25 as per ID; s/p 2 days of IV vanco, 4 days of zithromax, and 3 days of rocephin
MRSA screen negative and chest tube draining well - IV vanco DC'd
Follow fever curve and leukocytosis
ILD history
DuoNebs BID
Steroids were discontinued.
Incentive spirometry
History of mild pulmonary fibrosis stable over time-possible hypersensitivity pneumonitis. No evidence of honeycombing on CAT scan.
Patient has exposures to a barn at home.
Pulmonary function testing have been stable.
Follows up with Dr. Franco.
HTN history, HLD
No ECHO in past for review
Discharge planning pending chest tube management
PT/OT evals ongoing
Diagnostic Data
CXR 01/30/24- Stable positioning of 2 left-sided chest tubes with improvement of subtle increased density within the left apex suggesting improvement of left apical loculated fluid collection.
CT chest 01/27/24- Left pleural pigtail catheter is present. Significant interval improvement in left pleural effusion with multiple loculations. Largest residual loculated fluid collection is present in the apical region of the left hemithorax.
Patchy parenchymal opacity within the left lung, with main differential considerations of pneumonia and/or atelectasis. Small right pleural effusion, which appears slightly increased compared to CT examination of January 21, 2024. Predominantly linear
opacities within the right lower lung, which is likely atelectasis.
Subjective Data
-
Date of Service:
Date of Service: January 30, 2024
Chief Complaint: Pulmonary Follow Up (Pleural effusion)
Subjective:
no new events on, remain stable on room air
chest tubes with minimal drainage
Objective Data
Data Reviewed
Vital Signs / I&O / Oxygen:
Vital Signs
Temp Pulse Resp BP Pulse Ox
98.1 F 74 16 146/71 95
01/30/24 07:18 01/30/24 09:23 01/30/24 06:00 01/30/24 09:23 01/30/24 08:41
Intake and Output
01/29/24 01/30/24 01/31/24
06:59 06:59 06:59
Intake Total 240 / 240 240 / 240
Output Total 464 / 464
Balance -224 / -224 229 / 229
SaO2 95
Nasal Cannula flow liters per 2
minute
Physical Exam
General: Comfortable and Good Appetite
HEENT: Normocephalic and Anicteric
Cardiovascular: S1-S2, Regular Rhythm, Murmur (n) and Peripheral Edema (negative)
Respiratory: Clear, Wheeze (negative), Crackles (negative), Rhonchi (negative), Non-Labored Respirations, Stridor (n), Chest Tube (left-sided chest tube x 2) and Other (decreased at bases)
GI: Soft, Non Distended and Non Tender
Neurology: Awake, Alert, Oriented, AO x 3 and No Motor Deficits (Moves all extremities)
Skin: Warm, Dry, Cyanosis (n), Jaundice (n) and Rash (n)
Labs/Micro/Reports
Lab Data
01/30/24 05:14
01/30/24 05:14
--- NOTE | 2024-01-30 10:48 | W.PN.ID1 ---
Date of Service
Date of Service: January 30, 2024
Today's Communication
Continue cefepime/metronidazole.
Assessment / Plan
# Viridans streptococcus left empyema and PNA
# Pseudomonas PNA
# Leukocytosis trending down
- Continue chest tube drainage
- Continue cefepime/metronidazole (day#8 abx) .
- Follow wbc.
#Additional Past Medical History:
Interstitial lung disease vs hypersensitive pneumonitis with chronic cough
Hypertension
Dyslipidemia
Chief Complaint
-: Pneumonia and Other (Left empyema)
Subjective / Review of Systems
No complaints.
Vital Signs / Physical Exam
Vital Signs
Vital Signs
Temp Pulse Resp BP Pulse Ox
98.1 F 74 16 146/71 95
01/30/24 07:18 01/30/24 09:23 01/30/24 06:00 01/30/24 09:23 01/30/24 08:41
Physical Exam
Constitutional: No Acute Distress
Pulmonary: Other (left chest 2 chest tubes with clear fluid)
Neurological: AO x 3
Objective Data
Lab Data
Lab Results
01/30/24 05:14
01/30/24 05:14
Estimated Creat Clear 50 ml/min 01/30/24 05:14
Total Bilirubin 1.1 mg/dl (0.2-1.3) 01/20/24 10:06
AST 31 U/L (17-59) 01/20/24 10:06
ALT 26 U/L (0-50) 01/20/24 10:06
Alkaline Phosphatase 143 U/L (38-126) H 01/20/24 10:06
Most recent labs reviewed.
Micro Results:
01/22/24 12:44 Fungal Smear - Final
Pleural Fluid No yeast or fungal elements seen.
Fungal Culture - Preliminary
Culture in progress.
Positive cultures are reported as soon as detected.
Final report to follow in four to five weeks.
01/22/24 12:44 Body Fluid Culture - Final
Pleural Fluid Viridans Streptococcus Group
Gram Stain - Final
01/20/24 10:06 Blood Culture - Final
Blood/Venous No Growth - Final Report
01/20/24 09:57 Blood Culture - Final
Blood/Venous No Growth - Final Report
01/22/24 12:44 Acid Fast Bacilli Smear - Preliminary
Pleural Fluid Acid Fast Bacilli Culture - Preliminary
01/23/24 18:00 Nasal Screen MRSA (PCR) - Final
Nose MRSA not detected - performed by PCR methodology.
01/20/24 22:23 Respiratory Culture - Final
Sputum Pseudomonas aeruginosa
Gram Stain - Final
01/20/24 14:20 Influenza Types A & B (HESHAM) - Final
Nasal Swab Negative for Influenza A & B, NAAT
Negative results must be combined with clinical observations
and patient history.
Nucleic Acid Amplification test (NAAT)performed on the
[employer] platform.
01/24/24 CXR: Mildly improved probably loculated left pleural effusion. Stable left-sided chest tube.
01/21/[address]: Moderate lobulated likely at least partially loculated left pleural effusion seen throughout the left hemithorax with accompanying areas of parenchymal consolidation/atelectasis most prominent in the left lower lobe. Small left
lung mass cannot be entirely excluded on the basis of this study. Please see above comments.
--- NOTE | 2024-01-30 12:50 | CM ---
Patient with Dx Acute hypoxic respiratory insufficiency, pneumonia/empyema. Room air. Chest tubes x2. Receiving IV Abx. PT & OT recommend skilled rehab.
Received frantic phone call from patient saying CM had called his again saying he had to leave the hospital today. Reassured patient CM has not contacted the patient's since 01/26, and there was no conversation about discharge to home on
that day or discussion when discharge would occur. Relayed to the patient that his had indicated on 01/26 that she wanted to talk to him about going to rehab- he said he has not had a discussion about rehab with his and prefers to go
home. *See nurses note 01/28 10:38am.
Spoke with patient's son Kwame, who lives in [facility]; CM asked him if patient and/or are intermittently confused/forgetful, as patient has contacted CM 3x over the past 3 days upset saying CM is telling his he must leave the hospital
today- none of which occurred. Kwame did not comment on patient or 's mental status. Kwame will be primary contact going forward. He would like his father to return home with [facility], assuming his mobility will improve when chest tubes come out.
As the patient's grand-daughter and grandson are staying with his parents, he feels they will have enough help/support at home. CM informed son that initial d/c plan was home with [facility] and that plan will be reinstated.
Son asking for a ph call from hospitalist with an update---> message sent to Dr Pearson.
Plan d/c home with [facility].
--- NOTE | 2024-01-30 16:41 | WOUNDNOTE ---
[facility] RN NOTE: Patient with new buttock wound reported on HAP report. Reviewed chart, met with patient. Patient has new area of MASD between buttock folds and stage 1 non blanchable skin radiating from buttocks to sacral/coccyx. Patient reports recent
BMs and reports he felt 'sore' after that. He demonstrates ability to turn self in bed but admits he has not been moving/turning as often as he should. His heels are blanchable. He reports a fair appetite. He is using urinal while in bed. Calazime
applied to areas of MASD and stage 1 PI. Protective sacral foam applied. Patient was positioned on semi-side lying position with heels off-loaded with air cushion under calves. Hospitalist made aware of new wound. Will follow as needed.
[2024-01-30] MEDS: LOVENOX 40 MG SC (18:43)
[2024-01-30] MEDS: PEPCID 20 MG PO (20:32)
[2024-01-30] MEDS: MELATONIN 3 MG PO (23:10)
[2024-01-30] MEDS: XALATAN OPHTHALMIC SOLUTION 1 DROP BOTH EYES (23:10)
[2024-01-30] MEDS: TORADOL 15 MG IV (23:10)
[2024-01-31] VITALS (11 sets, daily range): BP systolic 122–145; BP diastolic 56–100; PULSE 90; O2SAT 94
[2024-01-31] MEDS: ROXICODONE 5 MG PO ×2 (02:35→23:27)
[2024-01-31] MEDS: MAXIPIME 2000 MG IV ×3 (02:35→17:00)
[2024-01-31] MEDS: STERILE WATER FOR INJECTION 10 ML IV ×3 (02:35→17:01)
[2024-01-31] MEDS: FLAGYL 500 MG PO ×3 (05:14→20:40)
[2024-01-31 05:35] LABS: Hematocrit 39.4 % (39.0-52.0); Hemoglobin 13.2 g/dL (13.0-18.0); Mean Corp Hgb Conc. 33.5 g/dL (33.0-37.0); Mean Corpuscular Hgb 30.5 pg (27.0-31.0); Platelet Count 368 10^3/uL (130-400); Red Blood Cell Count 4.33 10^6/uL (4.70-6.10); Red Cell Dist. Width 13.5 % (11.5-14.5); White Blood Cell Count 11.6 10^3/uL (4.8-10.8)
[2024-01-31 07:13] LABS: Blood Urea Nitrogen 27 mg/dl (9-20); Calcium 8.2 mg/dl (8.4-10.2); Carbon Dioxide 24 mmol/L (22-30); Chloride 109 mmol/L (98-107); Estimated Creatinine Clearance 57 ml/min; Glucose 77 mg/dl (70-99); Magnesium 2.1 mg/dl (1.6-2.3); Phosphorus 3.1 mg/dl (2.5-4.5); Potassium 5.3 mmol/L (3.5-5.1); Sodium 138 mmol/L (135-145); eGFR > 60.00
--- NOTE | 2024-01-31 07:32 | W.PN.HOSP.TC ---
Addendum entered and electronically signed by Sanjeev Pearson MD 01/31/24 20:11:
correction to physical exam chest tubes removed at time of evaluation
Original Note:
Today's Communication/Plan
-
cont abx as per ID
potassium restricted diet
chest tubes completed/removed
monitor, likely discharge tomorrow home with home services if remains stable/continues to improve.
Assessment / Plan
Assessment / Plan
Physical Exam
General: Acutely ill. No pallor, cyanosis, or jaundice.
HEENT: Throat clear. PERRLA Normocephalic atraumatic
NECK: Supple. No JVD Carotid Bruits
RESPIRATORY: Clear to Auscultation b/l [address]
CVS: S1, S2 normal. RRR. No murmur, rub or gallop.
ABDOMEN: Soft, non-tender. No distension. BS+/normal.
EXTREMITIES: No peripheral cyanosis or edema.
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
A/P:
Acute hypoxic respiratory insufficiency:
Likely related to pneumonia/empyema
Pulmonary consult appreciated
Chest tubes by IR
weaned off Supplemental oxygen stable respiratory status on room air
Incentive spirometry
Mucinex
Pseudomonas and viridans strep pneumonia/L Empyema:
CT surgery appreciated input and recommended to repeat drainage by IR on apical area and tPA/dornase and upper drain.
S/P IR apical chest tube placement 01/27
WBC overall trending down, will cont to monitor
Empiric Vancomycin discontinued
Chest tubes placed in basilar and apical area completed as per IR and pulm, since removed
MRSA negative, influenza negative, COVID-19 negative
Blood cultures no growth
Sputum culture Pseudomonas aeruginosa
Pleural fluid cultures growing Viridans Streptococcus
ID consult appreciated cont IV cefepime and metronidazole
Chest pain due to recent trauma/chest tube:
Continue Tylenol, Toradol as needed for moderate pain and oxycodone for severe pain.
cont bowel regimen
pain since improved, chest tubes removed 01/30
Interstitial lung disease/hypersensitivity pneumonitis:
Follow-up with pulmonary as outpatient
Hypertension:
Continue losartan 50 mg p.o. daily
Mild Hyperkalemia 01/30
2g potassium restricted started
Hyperlipidemia:
Continue atorvastatin 20 mg p.o. daily
PT/OT appreciated SNF rehab since updated to Home health with improvement in functional status.
DVT prophylaxis:
Lovenox SQ
CODE STATUS:
Full code
discussed with patient and patient's son Kwame
as noted in case mgmt note 01/30/24 patient's son Kwame to be primary contact with regards to providing family updates regarding patient.
Total time spent on today's encounter was 55 minutes which included time spent in counseling the patient/family regarding diagnosis and treatment plan as listed above, goals of care, and symptom management. Case was discussed with nursing staff,
specialists, and care coordinators/case management. All labs and imaging personally reviewed by me. Remainder the time spent in detailed review of previous records, lab data, imaging, and other medical provider documentation.
Anticipated Discharge: 24 - 48 hours
Subjective/Interval History
-
Date of Service: January 31, 2024
Patient reports feeling well since chest tubes removed this morning. Denies new acute issues.
Objective Data
-
Labs:
Laboratory Results
01/31/24 01/31/24
05:23 06:35
WBC 11.6 H
Hgb 13.2
Hct 39.4
Plt Count 368
Sodium Cancelled 138
Potassium Cancelled 5.3 H
Chloride Cancelled 109 H
Carbon Dioxide Cancelled 24
BUN Cancelled 27 H
Creatinine Cancelled 0.8
Glucose Cancelled 77
Calcium Cancelled 8.2 L
Vital Signs:
Vital Signs
Temp Pulse Resp BP Pulse Ox
97.8 F 70 15 140/70 97
01/31/24 03:37 01/31/24 06:00 01/31/24 06:00 01/31/24 06:00 01/31/24 06:00
I&O
01/30/24 01/31/24 02/01/24
06:59 06:59 06:59
Intake Total 240 / 240 1100 / 1100
Output Total 120 / 120
Balance 229 / 229 980 / 980
[2024-01-31] MEDS: LIPITOR 20 MG PO (09:00)
[2024-01-31] MEDS: MUCINEX 600 MG PO ×2 (09:00→20:40)
[2024-01-31] MEDS: THERAGRAN 1 TABLET PO (09:00)
[2024-01-31] MEDS: VITAMIN D3 (cholecalciferol) 25 MCG PO (09:00)
[2024-01-31] MEDS: ANUSOL HC RECTAL ×2 (09:00→20:40)
[2024-01-31] MEDS: COZAAR 50 MG PO (09:00)
[2024-01-31] MEDS: MIRALAX PO (09:00)
[2024-01-31] MEDS: SINGULAIR 10 MG PO (09:00)
[2024-01-31] MEDS: ALPHAGAN 0.2% EYE DROPS 1 DROP BOTH EYES ×2 (09:00→20:40)
--- NOTE | 2024-01-31 09:17 | W.PN.PUL3 ---
Today's Communication / Plan
-
CT chest reviewed, case discussed with IR
Order placed to discontinue chest tubes, reviewed with patient
Can transition abx to PO for complete course
Encouraged ambulation, IS once tubes removed
Observation for 24 hours
Outpatient pulmonary FU to be arranged
Assessment
-
83-year-old who is known to me from the outpatient setting for interstitial lung disease, possible hypersensitivity pneumonitis, chronic cough, who came to the hospital complaining of 2 weeks progressive shortness of breath associated with fevers
and night sweats. Cough was productive of yellow sputum. Denied any hemoptysis. Reports loss of appetite, progressive shortness of breath. Also reports new ankle edema. Of note, patient reports falling off a ladder cleaning gutters. He sustained
significant trauma to the left side. Complains of pain to coughing. On admission patient had leukocytosis. Chest x-ray showed moderate loculated left pleural effusion with consolidation. CT chest showed moderate lobulated/loculated pleural effusion
severe in size with compressive atelectasis, changes new compared to CAT scan from [address] chest with left-sided pneumonia (mainly in LLL) with multi-loculated effusion due to Streptococcus viridans empyema
s/p small-bore chest tube (IR placed-01/22/24)
Left-sided pneumonia due to Pseudomonas aeruginosa (riley-sensitive)
Increased left apical loculated fluid collection, s/p CT placement 01/27
Acute hypoxemic respiratory insufficiency, improved
Conditions present prior admission:
Hypertension
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
Follows with Dr. Franco-PFTs have been stable over time.
Negative rheumatologic workup.
Chronic cough secondary to above
Chronic rhinitis
Non-smoker
RAMSES on CPAP
Plan
At this time, patient appears to be comfortable, stable on RA 95%
Second chest tube placed 01/27, 20 cc of bloody drainage removed, 10 Welsh tube placed
Did not pursue intrapleural lytic therapy given bloody nature
Interventional radiology: Chest tube placed on 01/21 --> c/t monitor drainage; cytology negative
Drainage slowed considerably from 01/22 - 01/23 --> on 01/23, started lytic treatments through chest tube with tPA and DNase BID x 3 days from 01/23 - 01/25 leading to significant interval improvement in the left basilar loculated effusion
He still has a DALLIN loculated collection --> status post 10 Welsh chest tube placed 01/27, 120 cc drained since, less bloody
No further continues drainage overnight on either chest tube
CT chest reviewed, discuss with IR ok to discontinue chest tubes
Continue antibiotics for community-acquired infection
Initial sputum culture grew pansensitive Pseudomonas aeruginosa
Pleural fluid growing Streptococcus viridans
Zosyn (started 01/22) changed to cefepime on 01/25 as per ID; s/p 2 days of IV vanco, 4 days of zithromax, and 3 days of rocephin
MRSA screen negative and chest tube draining well - IV vanco DC'd
Follow fever curve and leukocytosis
ILD history
DuoNebs BID
Steroids were discontinued.
Incentive spirometry
History of mild pulmonary fibrosis stable over time-possible hypersensitivity pneumonitis. No evidence of honeycombing on CAT scan.
Patient has exposures to a barn at home.
Pulmonary function testing have been stable.
Follows up with Dr. Franco.
HTN history, HLD
No ECHO in past for review
Discharge planning pending chest tube management
PT/OT evals ongoing
Diagnostic Data
CXR 01/30/24- Stable positioning of 2 left-sided chest tubes with improvement of subtle increased density within the left apex suggesting improvement of left apical loculated fluid collection.
CT chest 01/27/24- Left pleural pigtail catheter is present. Significant interval improvement in left pleural effusion with multiple loculations. Largest residual loculated fluid collection is present in the apical region of the left hemithorax.
Patchy parenchymal opacity within the left lung, with main differential considerations of pneumonia and/or atelectasis. Small right pleural effusion, which appears slightly increased compared to CT examination of January 21, 2024. Predominantly linear
opacities within the right lower lung, which is likely atelectasis.
Subjective Data
-
Date of Service:
Date of Service: January 31, 2024
Chief Complaint: Pulmonary Follow Up (Pleural effusion)
Subjective:
no new events, remains stable on room air
no new complaints
Objective Data
Data Reviewed
Vital Signs / I&O / Oxygen:
Vital Signs
Temp Pulse Resp BP Pulse Ox
97.8 F 70 15 140/70 97
01/31/24 03:37 01/31/24 06:00 01/31/24 06:00 01/31/24 06:00 01/31/24 06:00
Intake and Output
01/30/24 01/31/24 02/01/24
06:59 06:59 06:59
Intake Total 240 / 240 1100 / 1100
Output Total 11 / 11 120 / 120
Balance 229 / 229 980 / 980
SaO2 97
Nasal Cannula flow liters per 2
minute
Physical Exam
General: Comfortable and Good Appetite
HEENT: Normocephalic and Anicteric
Cardiovascular: S1-S2, Regular Rhythm, Murmur (n) and Peripheral Edema (negative)
Respiratory: Clear, Non-Labored Respirations, Stridor (n), Chest Tube (left-sided chest tube x 2) and Other (decreased at bases)
GI: Soft, Non Distended and Non Tender
Neurology: Awake, Alert, Oriented, AO x 3 and No Motor Deficits (Moves all extremities)
Skin: Warm, Dry, Cyanosis (n), Jaundice (n) and Rash (n)
Labs/Micro/Reports
Lab Data
01/31/24 05:23
01/31/24 06:35
Microbiology
01/22/24 12:44 Pleural Fluid Fungal Smear - Final
No yeast or fungal elements seen.
01/22/24 12:44 Pleural Fluid Fungal Culture - Preliminary
Culture in progress.
Positive cultures are reported as soon as detected.
Final report to follow in four to five weeks.
--- NOTE | 2024-01-31 09:34 | W.PN.ID1 ---
Date of Service
Date of Service: January 31, 2024
Today's Communication
Continue cefepime/metronidazole
Assessment / Plan
# Viridans streptococcus left empyema and PNA
# Pseudomonas PNA
# Leukocytosis trending down
- chest tube drainage management as per Pulm.
- Continue cefepime/metronidazole (day#9 abx) .
- Follow wbc.
#Additional Past Medical History:
Interstitial lung disease vs hypersensitive pneumonitis with chronic cough
Hypertension
Dyslipidemia
Chief Complaint
-: Pneumonia and Other (Left empyema)
Subjective / Review of Systems
Feels well.
Vital Signs / Physical Exam
Vital Signs
Vital Signs
Temp Pulse Resp BP Pulse Ox
97.8 F 70 15 140/70 97
01/31/24 03:37 01/31/24 06:00 01/31/24 06:00 01/31/24 06:00 01/31/24 06:00
Physical Exam
Constitutional: No Acute Distress
Cardiovascular: Regular Rate and S1/S2
Pulmonary: Other (left chest tubes x2 in place)
Gastrointestinal: Soft and Non Distended
Extremities: Negative Edema
Objective Data
Lab Data
Lab Results
01/31/24 05:23
01/31/24 06:35
Estimated Creat Clear 57 ml/min 01/31/24 06:35
Total Bilirubin 1.1 mg/dl (0.2-1.3) 01/20/24 10:06
AST 31 U/L (17-59) 01/20/24 10:06
ALT 26 U/L (0-50) 01/20/24 10:06
Alkaline Phosphatase 143 U/L (38-126) H 01/20/24 10:06
Most recent labs reviewed.
Micro Results:
01/22/24 12:44 Fungal Smear - Final
Pleural Fluid No yeast or fungal elements seen.
Fungal Culture - Preliminary
Culture in progress.
Positive cultures are reported as soon as detected.
Final report to follow in four to five weeks.
01/22/24 12:44 Body Fluid Culture - Final
Pleural Fluid Viridans Streptococcus Group
Gram Stain - Final
01/20/24 10:06 Blood Culture - Final
Blood/Venous No Growth - Final Report
01/20/24 09:57 Blood Culture - Final
Blood/Venous No Growth - Final Report
01/22/24 12:44 Acid Fast Bacilli Smear - Preliminary
Pleural Fluid Acid Fast Bacilli Culture - Preliminary
01/23/24 18:00 Nasal Screen MRSA (PCR) - Final
Nose MRSA not detected - performed by PCR methodology.
01/20/24 22:23 Respiratory Culture - Final
Sputum Pseudomonas aeruginosa
Gram Stain - Final
01/20/24 14:20 Influenza Types A & B (HESHAM) - Final
Nasal Swab Negative for Influenza A & B, NAAT
Negative results must be combined with clinical observations
and patient history.
Nucleic Acid Amplification test (NAAT)performed on the
[employer] platform.
01/30/[address]: Improving loculated left pleural effusions.
01/24/24 CXR: Mildly improved probably loculated left pleural effusion. Stable left-sided chest tube.
01/21/[address]: Moderate lobulated likely at least partially loculated left pleural effusion seen throughout the left hemithorax with accompanying areas of parenchymal consolidation/atelectasis most prominent in the left lower lobe. Small left
lung mass cannot be entirely excluded on the basis of this study. Please see above comments.
--- NOTE | 2024-01-31 10:41 | PN.IRAD.UPD ---
Update Note - IRAD
- -
Left chest tubes (x2) removed bedside in IRAD per . Sites cleaned and dressed with vaseline gauze, 4x4 and tegaderm. No CXR needed post removal.
[2024-01-31] MEDS: DESENEX/MITRAZOL/ZEASORB 1 APPLIC TOPICAL ×2 (11:27→20:40)
--- NOTE | 2024-01-31 11:42 | PTCARENOTE ---
Returned from IRAD with CT site dressings CDI x2 to upper back and left lat thorax. C/o some discomfort from procedure but is resolving on own. Refused need for med intervention. 98% on RAIR, diminished BS. Resting comfortably.
--- NOTE | 2024-01-31 14:55 | CM ---
I met with Mr. Schrader earlier today after he had chest tubes removed. He is alert and oriented, wishing to go home with his . Therapy to work with him this afternoon.
Plan: Return home at discharge with [facility] with first floor set up. TT to Yulia Link to make her aware of need for home PT/OT and wound care.
[2024-01-31] MEDS: LOVENOX 40 MG SC (17:01)
[2024-01-31] MEDS: PEPCID 20 MG PO (20:40)
[2024-01-31] MEDS: MELATONIN 3 MG PO (23:27)
[2024-01-31] MEDS: XALATAN OPHTHALMIC SOLUTION 1 DROP BOTH EYES (23:28)
[2024-02-01] VITALS (8 sets, daily range): BP systolic 118–139; BP diastolic 47–81
[2024-02-01] MEDS: MAXIPIME 2000 MG IV ×2 (00:55→10:46)
[2024-02-01] MEDS: STERILE WATER FOR INJECTION 10 ML IV ×2 (00:55→10:46)
--- NOTE | 2024-02-01 03:05 | DOWNTIME ---
There was a [employer] Client Churn Operator Margarine Downtime on 01/31/2024 from 0100 to 02/01/2024 at 0300. Downtime documentation of patient's care, including medication administrations, has been reconciled in the electronic record per guidelines. Refer to the
patient's paper chart under the miscellaneous tab to see printed paper medication records and downtime forms.
[2024-02-01] MEDS: FLAGYL 500 MG PO ×2 (05:12→13:33)
[2024-02-01 05:39] LABS: Hematocrit 40.3 % (39.0-52.0); Hemoglobin 13.2 g/dL (13.0-18.0); Mean Corp Hgb Conc. 32.8 g/dL (33.0-37.0); Mean Corpuscular Hgb 30.3 pg (27.0-31.0); Mean Corpuscular Volume 92.6 fL (80.0-94.0); Mean Platelet Volume 8.6 fL (7.4-10.4); Platelet Count 388 10^3/uL (130-400); Red Blood Cell Count 4.35 10^6/uL (4.70-6.10); Red Cell Dist. Width 13.7 % (11.5-14.5); White Blood Cell Count 14.3 10^3/uL (4.8-10.8)
[2024-02-01 06:03] LABS: Blood Urea Nitrogen 25 mg/dl (9-20); Calcium 7.9 mg/dl (8.4-10.2); Carbon Dioxide 21 mmol/L (22-30); Chloride 109 mmol/L (98-107); Estimated Creatinine Clearance 65 ml/min; Glucose 76 mg/dl (70-99); Phosphorus 2.8 mg/dl (2.5-4.5); Potassium 4.3 mmol/L (3.5-5.1); Sodium 133 mmol/L (135-145); eGFR > 60.00
--- NOTE | 2024-02-01 07:08 | W.PN.HOSP.TC ---
Today's Communication/Plan
-
Possible discharge later this afternoon pending ID abx recommendations
Home with home services and outpatient follow up recommendations.
Assessment / Plan
Assessment / Plan
Physical Exam
General: No pallor, cyanosis, or jaundice. Appears Comfortable
HEENT: Throat clear. PERRLA Normocephalic atraumatic
NECK: Supple. No JVD Carotid Bruits
RESPIRATORY: Clear to Auscultation b/l
CVS: S1, S2 normal. RRR. No murmur, rub or gallop.
ABDOMEN: Soft, non-tender. No distension. BS+/normal.
EXTREMITIES: No peripheral cyanosis or edema.
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
A/P:
Acute hypoxic respiratory insufficiency:
Likely related to pneumonia/empyema
Pulmonary consult appreciated
Chest tubes by IR
weaned off Supplemental oxygen stable respiratory status on room air
Incentive spirometry
Mucinex
Pseudomonas and viridans strep pneumonia/L Empyema:
CT surgery appreciated input and recommended to repeat drainage by IR on apical area and tPA/dornase and upper drain.
S/P IR apical chest tube placement 01/27
WBC overall trending down, will cont to monitor
Empiric Vancomycin discontinued
Chest tubes placed in basilar and apical area completed as per IR and pulm, since removed
MRSA negative, influenza negative, COVID-19 negative
Blood cultures no growth
Sputum culture Pseudomonas aeruginosa
Pleural fluid cultures growing Viridans Streptococcus
ID consult appreciated IV cefepime and metronidazole in hospital
Chest pain due to recent trauma/chest tube:
Continue Tylenol, Toradol as needed for moderate pain and oxycodone for severe pain.
cont bowel regimen
pain since improved, chest tubes removed 01/30
Interstitial lung disease/hypersensitivity pneumonitis:
Follow-up with pulmonary as outpatient
Hypertension:
Continue losartan 50 mg p.o. daily
Mild Hyperkalemia 01/30
2g potassium restricted started
Hyperlipidemia:
Continue atorvastatin 20 mg p.o. daily
PT/OT appreciated SNF rehab since updated to Home health with improvement in functional status.
DVT prophylaxis:
Lovenox SQ
CODE STATUS:
Full code
Possible discharge today pending abx recommendations as per ID
discussed with patient and patient's son Kwame
as noted in case mgmt note 01/30/24 patient's son Kwame to be primary contact with regards to providing family updates regarding patient.
Total Time Preparing Discharge ___50____ minutes including examination of the patient, summary of the hospital stay, instructions for continuing care to all relevant caregivers; and preparation of discharge records, prescriptions, and referral
forms if necessary.
Anticipated Discharge: Today
Subjective/Interval History
-
Date of Service: February 01, 2024
Patient reports feeling well. Denies new acute issues at this time including shortness of breath.
Objective Data
-
Labs:
Laboratory Results
02/01/24
05:22
WBC 14.3 H
Hgb 13.2
Hct 40.3
Plt Count 388
Sodium 133 L
Potassium 4.3
Chloride 109 H
Carbon Dioxide 21 L
BUN 25 H
Creatinine 0.7
Glucose 76
Calcium 7.9 L
Vital Signs:
Vital Signs
Temp Pulse Resp BP Pulse Ox
98.1 F 68 17 121/79 95
02/01/24 07:04 02/01/24 04:00 02/01/24 04:00 02/01/24 04:00 02/01/24 04:00
I&O
01/31/24 02/01/24 02/02/24
06:59 06:59 06:59
Intake Total 1100 / 1100
Output Total 120 / 120 100 / 100 100 / 100
Balance 980 / 980 -100 / -100 -100 / -100
[2024-02-01] MEDS: LIPITOR 20 MG PO (08:36)
[2024-02-01] MEDS: MUCINEX 600 MG PO (08:36)
[2024-02-01] MEDS: SINGULAIR 10 MG PO (08:36)
[2024-02-01] MEDS: THERAGRAN 1 TABLET PO (08:36)
[2024-02-01] MEDS: ANUSOL HC RECTAL (08:37)
[2024-02-01] MEDS: VITAMIN D3 (cholecalciferol) 25 MCG PO (08:37)
[2024-02-01] MEDS: ALPHAGAN 0.2% EYE DROPS 1 DROP BOTH EYES (08:37)
[2024-02-01] MEDS: MIRALAX PO (08:37)
[2024-02-01] MEDS: DESENEX/MITRAZOL/ZEASORB 1 APPLIC TOPICAL (08:37)
[2024-02-01] MEDS: COZAAR 50 MG PO (08:37)
--- NOTE | 2024-02-01 08:53 | W.PN.PUL3 ---
Today's Communication / Plan
-
Doing well post chest tube discontinuation
Repeat CXR appears stable
He is on room air, ambulating with no complaints
Can transition IV abx to PO course
Discharge planning per team
Outpatient pulmonary FU left in chart
We will sign off at this time, please call with questions
Assessment
-
83-year-old who is known to me from the outpatient setting for interstitial lung disease, possible hypersensitivity pneumonitis, chronic cough, who came to the hospital complaining of 2 weeks progressive shortness of breath associated with fevers
and night sweats. Cough was productive of yellow sputum. Denied any hemoptysis. Reports loss of appetite, progressive shortness of breath. Also reports new ankle edema. Of note, patient reports falling off a ladder cleaning gutters. He sustained
significant trauma to the left side. Complains of pain to coughing. On admission patient had leukocytosis. Chest x-ray showed moderate loculated left pleural effusion with consolidation. CT chest showed moderate lobulated/loculated pleural effusion
severe in size with compressive atelectasis, changes new compared to CAT scan from [address] chest with left-sided pneumonia (mainly in LLL) with multi-loculated effusion due to Streptococcus viridans empyema
s/p small-bore chest tube (IR placed-01/22/24)
Left-sided pneumonia due to Pseudomonas aeruginosa (riley-sensitive)
Increased left apical loculated fluid collection, s/p CT placement 01/27
Acute hypoxemic respiratory insufficiency, improved
Conditions present prior admission:
Hypertension
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
Follows with Dr. Franco-PFTs have been stable over time.
Negative rheumatologic workup.
Chronic cough secondary to above
Chronic rhinitis
Non-smoker
RAMSES on CPAP
Plan
At this time, patient appears to be comfortable, stable on RA 95%
Second chest tube placed 01/27, 20 cc of bloody drainage removed, 10 Croatian tube placed
Did not pursue intrapleural lytic therapy given bloody nature
Interventional radiology: Chest tube placed on 01/21 --> c/t monitor drainage; cytology negative
Drainage slowed considerably from 01/22 - 01/23 --> on 01/23, started lytic treatments through chest tube with tPA and DNase BID x 3 days from 01/23 - 01/25 leading to significant interval improvement in the left basilar loculated effusion
He still has a DALLIN loculated collection --> status post 10 Croatian chest tube placed 01/27, 120 cc drained since, less bloody
No further continues drainage overnight on either chest tube
CT chest reviewed, discuss with IR, discontinued chest tubes 01/30
Continue antibiotics for community-acquired infection
Initial sputum culture grew pansensitive Pseudomonas aeruginosa
Pleural fluid growing Streptococcus viridans
Zosyn (started 01/22) changed to cefepime on 01/25 as per ID; s/p 2 days of IV vanco, 4 days of zithromax, and 3 days of rocephin
MRSA screen negative and chest tube draining well - IV vanco DC'd
Follow fever curve and leukocytosis
ILD history
DuoNebs BID
Steroids were discontinued.
Incentive spirometry
History of mild pulmonary fibrosis stable over time-possible hypersensitivity pneumonitis. No evidence of honeycombing on CAT scan.
Patient has exposures to a barn at home.
Pulmonary function testing have been stable.
Follows up with Dr. Franco.
HTN history, HLD
No ECHO in past for review
Discharge planning pending chest tube management
PT/OT evals ongoing
Diagnostic Data
CXR 01/30/24- Stable positioning of 2 left-sided chest tubes with improvement of subtle increased density within the left apex suggesting improvement of left apical loculated fluid collection.
CT chest 01/27/24- Left pleural pigtail catheter is present. Significant interval improvement in left pleural effusion with multiple loculations. Largest residual loculated fluid collection is present in the apical region of the left hemithorax.
Patchy parenchymal opacity within the left lung, with main differential considerations of pneumonia and/or atelectasis. Small right pleural effusion, which appears slightly increased compared to CT examination of January 21, 2024. Predominantly linear
opacities within the right lower lung, which is likely atelectasis.
Subjective Data
-
Date of Service:
Date of Service: February 01, 2024
Chief Complaint: Pulmonary Follow Up (Pleural effusion)
Subjective:
doing well, stable on room air
no new complaints
ambulating well
Objective Data
Data Reviewed
Vital Signs / I&O / Oxygen:
Vital Signs
Temp Pulse Resp BP Pulse Ox
98.1 F 68 17 121/79 95
02/01/24 07:04 02/01/24 04:00 02/01/24 04:00 02/01/24 04:00 02/01/24 04:00
Intake and Output
01/31/24 02/01/24 02/02/24
06:59 06:59 06:59
Intake Total 1100 / 1100
Output Total 120 / 120 100 / 100 100 / 100
Balance 980 / 980 -100 / -100 -100 / -100
SaO2 95
Nasal Cannula flow liters per 2
minute
Physical Exam
General: Comfortable and Good Appetite
HEENT: Normocephalic and Anicteric
Cardiovascular: S1-S2, Regular Rhythm, Murmur (n) and Peripheral Edema (negative)
Respiratory: Clear, Non-Labored Respirations and Stridor (n)
GI: Soft, Non Distended and Non Tender
Neurology: Awake, Alert, Oriented, AO x 3 and No Motor Deficits (Moves all extremities)
Skin: Warm, Dry, Cyanosis (n), Jaundice (n) and Rash (n)
Labs/Micro/Reports
Lab Data
02/01/24 05:22
02/01/24 05:22
Microbiology
01/22/24 12:44 Pleural Fluid Fungal Smear - Final
No yeast or fungal elements seen.
01/22/24 12:44 Pleural Fluid Fungal Culture - Preliminary
Culture in progress.
Positive cultures are reported as soon as detected.
Final report to follow in four to five weeks.
--- NOTE | 2024-02-01 12:16 | VNURNOTE ---
Home Health Liaison made follow up visit with patient and son Rudy to discuss visits and hospital bed. Questions answered. Brochure provided with [facility] contact number.
Hospital bed ordered from [facility] at 1130.
Confirmation from automotive leasing sales representative Yan[employer] that [employer] would contact patient's son Kwame for delivery/payment arrangements today.
--- NOTE | 2024-02-01 12:42 | W.PN.ID1 ---
Date of Service
Date of Service: February 01, 2024
Today's Communication
Transition cefepime/metronidazole (day#10 abx) to cefuroxime 500mg bid x 3 more weeks.
Assessment / Plan
# Viridans streptococcus left empyema and PNA
# Pseudomonas PNA
# Leukocytosis trending down
- chest tubes removed 01/30
- Transition cefepime/metronidazole (day#10 abx) to cefuroxime 500mg bid x 3 more weeks.
#Additional Past Medical History:
Interstitial lung disease vs hypersensitive pneumonitis with chronic cough
Hypertension
Dyslipidemia
Chief Complaint
-: Pneumonia and Other (Left empyema)
Subjective / Review of Systems
Feels well. Going home today.
Vital Signs / Physical Exam
Vital Signs
Vital Signs
Temp Pulse Resp BP Pulse Ox
98.3 F 87 34 126/55 97
02/01/24 11:55 02/01/24 10:13 02/01/24 10:13 02/01/24 10:13 02/01/24 08:40
Physical Exam
Constitutional: No Acute Distress and Comfortable
Pulmonary: Coarse (left lung)
Gastrointestinal: Soft, Non Tender and Non Distended
Objective Data
Lab Data
Lab Results
02/01/24 05:22
02/01/24 05:22
Estimated Creat Clear 65 ml/min 02/01/24 05:22
Total Bilirubin 1.1 mg/dl (0.2-1.3) 01/20/24 10:06
AST 31 U/L (17-59) 01/20/24 10:06
ALT 26 U/L (0-50) 01/20/24 10:06
Alkaline Phosphatase 143 U/L (38-126) H 01/20/24 10:06
Most recent labs reviewed.
Micro Results:
01/22/24 12:44 Fungal Smear - Final
Pleural Fluid No yeast or fungal elements seen.
Fungal Culture - Preliminary
Culture in progress.
Positive cultures are reported as soon as detected.
Final report to follow in four to five weeks.
01/22/24 12:44 Body Fluid Culture - Final
Pleural Fluid Viridans Streptococcus Group
Gram Stain - Final
01/20/24 10:06 Blood Culture - Final
Blood/Venous No Growth - Final Report
01/20/24 09:57 Blood Culture - Final
Blood/Venous No Growth - Final Report
01/22/24 12:44 Acid Fast Bacilli Smear - Preliminary
Pleural Fluid Acid Fast Bacilli Culture - Preliminary
01/23/24 18:00 Nasal Screen MRSA (PCR) - Final
Nose MRSA not detected - performed by PCR methodology.
01/20/24 22:23 Respiratory Culture - Final
Sputum Pseudomonas aeruginosa
Gram Stain - Final
01/20/24 14:20 Influenza Types A & B (HESHAM) - Final
Nasal Swab Negative for Influenza A & B, NAAT
Negative results must be combined with clinical observations
and patient history.
Nucleic Acid Amplification test (NAAT)performed on the
[employer] platform.
01/30/[address]: Improving loculated left pleural effusions.
01/24/24 CXR: Mildly improved probably loculated left pleural effusion. Stable left-sided chest tube.
01/21/[address]: Moderate lobulated likely at least partially loculated left pleural effusion seen throughout the left hemithorax with accompanying areas of parenchymal consolidation/atelectasis most prominent in the left lower lobe. Small left
lung mass cannot be entirely excluded on the basis of this study. Please see above comments.
Care Review
Plan reviewed with: Physician (Dr. Pearson)
--- NOTE | 2024-02-01 13:15 | CM ---
Patient with Dx Acute hypoxic respiratory insufficiency, pneumonia/empyema. Room air. PT & OT recommend HH. Seen by wound care nurse.
Met with patient and son Rudy and spoke with son Kwame by phone; all agree to d/c home today. IMM completed with patient. Kwame informed CM family wants hospital bed on first floor of home- sent message to Dr Pearson who feels that the hospital
bed is not medically necessary - Yulia from [facility] coordinated with son for private pay hospital bed delivery for today. Patient aware VN is in place. Son Rudy will provide transport home. The patient was made aware that the his made calls
to nurses station talking about need to setup ambulance- patient will call her and let her know ambulance is not needed.
Plan home today with [facility] and private pay hospital bed.
--- NOTE | 2024-02-01 15:04 | W.DCSUMMARY ---
Discharge Summary
Discharge Data
Date of Admission: 01/20/24
Date of Discharge: 02/01/24
-
Pending Results: No
Discharge Plan
-
Patient Disposition: Home with Home Care
Discharge Diagnosis/Procedures: Acute Hypoxic Respiratory Insufficiency due to pneumonia/empyema treated with antibiotics and chest tube drainage since resolved chest tubes discontinued
Interstitial lung disease/hypersensitivity pneumonitis
Hypertension
Hyperlipidemia
Condition: Fair
Diet: Regular
Activity: With assistance, As tolerated and With Walker
Driving Restrictions: Not until seen by your Dr
Bathing Restrictions: None
Blood Work: Please repeat CBC and BMP with primary care provider in 1 week of discharge
Others Tests: Please follow up with [facility] for Pulmonary Function Tests in 3-4 weeks of discharge.
Other Services: VN, PT and OT
Activity Restrictions/Additional Instructions:
Wound Care Instructions Sacrum- Clean buttock folds with normal saline or soap and water. Apply Sacral foam dressing to sacrum. Change Q 3 days and PRN if loose or soiled.
Buttocks-Calazime to areas of MASD
Frequent continence care and position changes.
Follow up at wound care center call for an appointment.
Please follow up with primary care provider in 1 week of discharge and [facility] in 3-4 weeks of discharge.
Cefuroxime has been prescribed for 3 weeks to continue treatment Pneumonia and Empyema recently drained in hospital.
Mucinex 1 week supply has been prescribed for cough. This medication is available over the counter.
Oxycodone has been prescribed as needed for pain, 5 day supply.
Please take medications as prescribed/recommended and follow up with primary care and/or other healthcare provider involved in your care for refills and/or further adjustment to your medication regimen as necessary.
Referrals:
Chad Harper MD [Active] - in three to four weeks (3-4 weeks, PFTs)
Giacomo Costello PA-C [Family Provider] - in one week
Prescriptions:
New
cefuroxime axetil 500 mg Tablet
500 mg PO BID 21 Days Qty: 42 0RF
oxycodone 5 mg Tablet
5 mg PO BIDPRN PRN (Reason: severe pain) 5 Days Qty: 10 0RF
guaifenesin 600 mg Tablet Extended Release 12hr
600 mg PO Q12 7 Days Qty: 14 0RF
Continued
losartan 50 mg Tablet
50 mg PO DAILY
latanoprost 0.005 % Drops
1 drp BOTH EYES HS
atorvastatin 20 mg Tablet
20 mg PO DAILY
therapeutic multivitamin Tablet
1 tab PO DAILY
brimonidine 0.2 % Drops
1 drp BOTH EYES BID
montelukast 10 mg Tablet
10 mg PO DAILY
azelastine 137 mcg (0.1 %) Aerosol,[place]
1 spray INTRANASAL BID
cholecalciferol (vitamin D3) 25 mcg (1,000 unit) Tablet
25 mcg PO DAILY
Discharge Orders:
Discharge Patient (As Directed); Ordered 02/01/24
Ordered By: Sanjeev Pearson
Discharge Date and Time
Print Language: UKRAINIAN
== END 2024-02-01 16:28 | disposition home health service (06) | DRG 177 ==
LOC: IMU 15:22
PROVIDERS: Hospitalist; Radiology Diagnostic Radiology; ADMITTING PHYSICIAN Internal Medicine; CONSULT PHYSICIAN Internal Medicine Infectious Disease; CONSULT PHYSICIAN Thoracic Surgery (Cardiothoracic Vascular Surgery); EMERGENCY PHYSICIAN Emergency Medicine; FAMILY PHYSICIAN Physician Assistant Medical; OTHER PHYSICIAN Internal Medicine Critical Care Medicine
PROC: 0W9B30Z Drainage of Left Pleural Cavity with Drainage Device, Percutaneous Approach (ICD-10-PCS; 2024-01-22)
PROC: 3E0L317 Introduction of Other Thrombolytic into Pleural Cavity, Percutaneous Approach (ICD-10-PCS; 2024-01-24)
PROC: 3E0L3GC Introduction of Other Therapeutic Substance into Pleural Cavity, Percutaneous Approach (ICD-10-PCS; 2024-01-24)
PROC: 0WPBX0Z Removal of Drainage Device from Left Pleural Cavity, External Approach (ICD-10-PCS; 2024-01-31)
DX: J15.1 Pneumonia due to Pseudomonas (principal); J86.9 Pyothorax without fistula; J98.11 Atelectasis; J90 Pleural effusion, not elsewhere classified; J15.4 Pneumonia due to other streptococci; E78.00 Pure hypercholesterolemia, unspecified; I10 Essential (primary) hypertension; J45.991 Cough variant asthma; J84.10 Pulmonary fibrosis, unspecified; J67.9 Hypersensitivity pneumonitis due to unspecified organic dust; B95.4 Other streptococcus as the cause of diseases classified elsewhere; J31.0 Chronic rhinitis; R06.89 Other abnormalities of breathing; E87.5 Hyperkalemia; R09.02 Hypoxemia; W11.XXXD Fall on and from ladder, subsequent encounter; Z11.52 Encounter for screening for COVID-19
CPT/HCPCS: 88305; 32557; 32561; 71045; 71046; 71250; 71260; 76604; 80048; 80053; 82150; 82945; 83615; 83735; 83880; 83986; 84100; 84157; 84443; 84478; 84484; 85025; 85027; 87015; 87040; 87070; 87077; 87102; 87116; 87186; 87205; 87206; 87502; 87641; 87811; 88112; 89051; 93005; 94640; 96361; 96374; 96375; 97110; 97116; 97162; 97166; 97530; 97535; 99152; 99285; C1729; C1769; J2997; Q9967